=== PATIENT | male | born 1955 | race Caucasian/White ===

== ENCOUNTER 2023-08-24 18:41 | Emergency (ER) | payer OTHER, SELFPAY ==
--- NOTE | ~2023-08-24 | US_ITS ---
EXAMINATION: US SCROTUM CLINICAL INFORMATION: Bilateral pain and numbness. COMPARISON: None available. TECHNIQUE: A sonogram of the scrotum was performed assessing turner-scale appearance and color Doppler flow. Spectral Doppler analysis of the arterial and venous flow were performed in the testes bilaterally. FINDINGS: RIGHT: Right testicle measures 3.9 x 2.6 x 3.0 cm, volume 16 mL. No focal testicular parenchymal lesions are visualized. Spectral Doppler analysis of the arterial and venous flow is normal in the right testis. Right epididymal head is normal in size. There is a right sided hydrocele. No right varicocele. Right epididymal Doppler flow is normal. LEFT: Left testicle measures 3.8 x 2.7 x 2.3 cm, volume 12 mL. No focal testicular parenchymal lesions are visualized. Spectral Doppler analysis of the arterial and venous flow is normal in the left testis. Left epididymal head is normal in size. There is a small left hydrocele. No left varicocele. Left epididymal Doppler flow is normal. US/US scrotum doppler IMPRESSION: Both testicles and epididymal heads are normal in appearance. Spectral Doppler analysis of the arterial and venous flow is normal in both testicles and epididymal heads. There are small, right greater than left hydroceles. No varicocele.
--- NOTE | ~2023-08-24 | US_ITS ---
EXAMINATION: US SCROTUM CLINICAL INFORMATION: Bilateral pain and numbness. COMPARISON: None available. TECHNIQUE: A sonogram of the scrotum was performed assessing turner-scale appearance and color Doppler flow. Spectral Doppler analysis of the arterial and venous flow were performed in the testes bilaterally. FINDINGS: RIGHT: Right testicle measures 3.9 x 2.6 x 3.0 cm, volume 16 mL. No focal testicular parenchymal lesions are visualized. Spectral Doppler analysis of the arterial and venous flow is normal in the right testis. Right epididymal head is normal in size. There is a right sided hydrocele. No right varicocele. Right epididymal Doppler flow is normal. LEFT: Left testicle measures 3.8 x 2.7 x 2.3 cm, volume 12 mL. No focal testicular parenchymal lesions are visualized. Spectral Doppler analysis of the arterial and venous flow is normal in the left testis. Left epididymal head is normal in size. There is a small left hydrocele. No left varicocele. Left epididymal Doppler flow is normal. US/US scrotum IMPRESSION: Both testicles and epididymal heads are normal in appearance. Spectral Doppler analysis of the arterial and venous flow is normal in both testicles and epididymal heads. There are small, right greater than left hydroceles. No varicocele.
[2023-08-24 19:03] VITALS: BP 148/97; PULSE 58; RESP 18; TEMP 36.6; O2SAT 99; BMI 23.7
--- NOTE | 2023-08-24 19:05 | ED.GENADULT ---
HPI - General Adult General Chief complaint: Urogenital-Male Stated complaint: sent here by for ultrasound Time Seen by Provider: 08/24/23 20:02 Source: patient Mode of arrival: ambulatory Limitations: no limitations History of Present Illness HPI narrative: Patient is a 68 year old assigned male at with no reported medical history presenting to the emergency department today with bilateral testicular pain / numbness. Patient states that over the last 3-4 months he has noticed that when standing for long periods of time, he has had scrotal numbness and pain intermittently. Patient states that he feels it all the time but much worse with long periods of standing. Patient denies any dizziness, lightheadedness, abdominal pain, nausea, vomiting, fever, chills, blurry vision, double vision, loss of vision, chest pain, difficulty breathing, shortness of breath, back pain, night sweats, pain with urination, increased urinary frequency, increased urinary urgency, blood in his urine or stool, syncope or a near syncopal episode, recent trauma or falls, bowel incontinence, bladder incontinence, bowel retention, bladder retention, or any other complaints at this time. Onset (ago): month(s) (3-4) Severity: mild Relieving factors: none Exacerbating factors: other (long periods of standing) Associated symptoms: denies other symptoms Treatments prior to arrival: none Related Data Allergies Allergy/AdvReac Type Severity Reaction Status Date / Time No Known Allergies Allergy Verified 08/24/23 19:09 Review of Systems Constitutional: Constitutional: Reports no additional constitutional complaints, Denies chills, Denies fever(s) and Denies night sweats Eyes: Eyes: Reports no additional eye complaints, Denies blurry vision, Denies change in vision, Denies diplopia, Denies eye discharge, Denies loss of vision and Denies eye pain ENT: Denies dizziness Cardiovascular: Cardiovascular: Reports no additional cardiovascular complaints, Denies chest pain, Denies lightheadedness, Denies Loss of Consciousness and Denies dyspnea Respiratory: Respiratory: Reports no additional respiratory complaints and Denies dyspnea Gastrointestinal: Gastrointestinal: Reports no additional gastrointestinal complaints, Denies abdominal pain, Denies melena, Denies hematochezia, Denies change in bowel habits and Denies change in stool character Genitourinary: Genitourinary: Reports no additional male genitourinary complaints, Denies hematuria, Denies oliguria, Denies difficulty urinating, Denies dysuria, Denies urinary frequency, Denies urinary hesitancy, Denies urinary incontinence and Denies urinary urgency Comments: bilateral testicular numbness and pain - intermittent Musculoskeletal: Musculoskeletal: Reports no additional musculoskeletal complaints, Denies numbness and Denies tingling Neurologic: Denies dizziness, Denies loss of vision, Denies numbness and Denies tingling Psychiatric: Psychiatric: Reports no additional psychiatric complaints Endocrine: Endocrine: Reports no additional endocrine complaints Hematologic/Lymphatic: Hematologic/Lymphatic: Reports no additional hematologic/lymphatic complaints Allergic/Immunologic: Allergic/Immunologic: Reports no additional allergic/immunologic complaints PMFSH Past Medical History Attestation statement: The following information was validated with the patient. Source: old records reviewed and nursing notes reviewed Social History Social History Advance Directives: No Advance Directives Information Provided: No Do you have a plan to hurt others: No Plan Physical Exam ED Vital Signs: Vital Signs - 24 hr 08/24/23 19:03 08/24/23 19:26 Temperature 97.8 F 98.3 F Pulse Rate 58 70 Respiratory Rate 18 68 H Blood Pressure 148/97 H 137/83 Pulse Oximetry 99 97 Oxygen Delivery Method Room Air Room Air BMI result Body Mass Index 23.7 Const General: cooperative, no acute distress, alert and awake Nutritional Appearance: well nourished Orientation/consciousness: patient oriented x3 Limitations: no limitations HENMT Head: Yes normal to inspection and Yes atraumatic Ears: hearing grossly normal bilaterally and external ears normal General nose exam: Normal external nose present, no nasal discharge noted and no epistaxis Face and sinus: Yes normal facial exam, No abrasion and No laceration Mouth: Normal oral and palatal mucosa present, no drooling and no muffled voice Eyes General: appearance normal, both eyes and all related structures Periorbital: periorbital findings normal Eyelids: Yes eyelids normal Conjunctivae: conjunctivae normal Pupils: Equal, round and reactive pupils present EOM: EOMs intact bilaterally Neck Neck: Yes normal visual inspection, Yes full ROM and Yes no lymphadenopathy Chest Chest palpation & inspection: normal inspection of the chest Resp Effort & Inspection: normal respiratory effort and able to speak in complete sentences GI Inspection: Yes normal to inspection Male General Exam: Yes normal external exam (performed with ED Radiology Technologist Angle at bedside) Neuro General: patient oriented x3 and moves all extremities Cranial nerves: Yes Equal, round and reactive pupils present Cognition (Neuro): normal cognition Motor exam (neuro): 5/5 motor strength present throughout Sensory Exam: Normal double simultaneous stimulation for sensation Coordination: [id number] test normal Extrem General: Yes normal to inspection, Yes full ROM and Yes capillary refill normal Psych Appearance: grossly normal Mental Status: mental status grossly normal Affect: normal affect Attitude: cooperative Thought process: Normal thought process present Thought content: Normal thought content present Insight: Good insight present (Psych) Course Course Course Narrative: This is a rapid medical exam performed by Halina Torres NP: Additional HPI, ROS, PE not included below will be deferred to primary provider. Patient is a 68-year-old male with history of bipolar disorder presenting to the ED with complaint of bilateral testicular pain and numbness since this afternoon. States has had similar sxs for the past 3-4 months but never this severe. Denies any discoloration. Denies any difficulty urinating, hematuria. Went to urgent care but was referred to the ED. Has appointment with new PCP 09/30. Reports mild lower back tightness but states not pain, denies any falls or other trauma. Stands a lot for work, wears briefs. States he does shave his testicles but denies any knicks or other injuries. Unable to visualize in triage due to privacy concerns. Plan: UA, ultrasound, labs Medical Decision Making Medical Decision Making MDM Narrative: Patient is a 68 year old assigned male at with no reported medical history presenting to the emergency department today with intermittent bilateral scrotal pain and numbness. Patient's physical exam was unremarkable. Patient's blood work was unremarkable. Patient's urine showed no acute process. Patient's testicular US showed no acute process but did show bilateral hydroceles. I'm suspicious this is secondary to a process in the low back secondary to extended periods of standing however, given he has no back pain and is only having testicular pain, will have him start with PCP and urologist follow up. I explained my physical exam findings as well as all test results to the patient. I answered all questions asked by the patient. I stressed the importance of the patient taking his medication as prescribed. I stressed the importance of the patient following up with his primary care provider and a urologist. I stressed the importance of the patient returning to the emergency department immediately if his symptoms were to worsen or if he were to develop any dizziness, shortness of breath, difficulty breathing, chest pain, blurry vision, loss of vision, nausea, vomiting, abdominal pain, fever, chills, back pain, or any other complaints. Patient verbalized agreement and understanding with this treatment plan and discharge. Differential Diagnosis Differential Diagnoses: The differential diagnosis associated with the presentation includes Scrotal pain Scrotal numbness Admission/Observation Consideration of admission/observation: Escalation of care including admission/observation considered Patient would have been admitted to the hospital had his work up had any findings where hospital admission was appropriate and his clinical presentation warranted hospital admission. Lab Data MDM Lab Attestation statement: I reviewed the patient's lab results. My interpretation of these studies and their corresponding values is that they are grossly normal. 08/24/23 19:31 08/24/23 19:31 Labs: Lab Results 08/24/23 Range/Units 19:31 WBC 8.3 (4.8-10.8) X10*3/uL RBC 4.68 (4.60-5.80) X10*6/uL Hgb 14.7 (14.0-18.0) g/dl Hct 42.4 (42.0-52.0) % MCV 90.6 (80.0-98.0) fL MCH 31.4 (27.0-33.0) pg MCHC 34.7 (31.0-36.0) g/dl RDW 13.4 (11.0-16.0) % Plt Count 141 L (160-400) X10*3/uL MPV 9.9 (9.4-12.4) fL Immature Gran % (Auto) 0.1 (0.0-0.4) % Neut % (Auto) 36.1 L (45-73) % Lymph % (Auto) 56.1 H (20-40) % [place] % (Auto) 5.4 (2-11) % Eos % (Auto) 1.8 (0-4) % Baso % (Auto) 0.5 (0-2) % Lymph # (Auto) 4.7 (1.2-4.9) X10*3/uL [place] # (Auto) 0.5 (0.1-1.2) X10*3/uL Eos # (Auto) 0.2 (0.0-0.4) X10*3/uL Baso # (Auto) 0.0 (0.0-0.2) X10*3/uL Abs Immat Gran (auto) 0.01 (0.00-0.03) X10*3/uL Absolute Neuts (auto) 3.0 (2.0-8.3) x10*3/uL Absolute Nucleated RBC 0.000 (0.0-0.012) X10*3/uL Nucleated RBC % (auto) 0.0 (0.0-0.2) /100WBC Sodium 141 (135-145) mmol/L Potassium 3.9 (3.3-5.1) mmol/L Chloride 107 (96-108) mmol/L Carbon Dioxide 23 (22-29) mmol/L Anion Gap 15 (12-20) BUN 25 H (9-16) mg/dL Creatinine 1.17 (0.5-1.4) mg/dL Estim Creat Clear Calc 66.1 Estimated GFR > 60 Random Glucose 137 H (60-115) mg/dL Calcium 10.1 (8.4-10.2) mg/dL Total Bilirubin 0.6 (0.0-1.0) mg/dL AST 44 H (5-37) U/L ALT 53 H (0-40) U/L Alkaline Phosphatase 65 (39-117) U/L Total Protein 7.3 (6.5-8.0) g/dL Albumin 4.4 (3.5-5.0) g/dL Urine Color Yellow Urine Appearance Clear Urine pH 5.5 (5.0-9.0) Ur Specific [place] 1.025 (1.005-1.025) Urine Protein Negative (Neg-Trace) mg/dL Urine Glucose (UA) Negative (Negative) mg/dL Urine Ketones Trace (Negative) mg/dL Urine Blood Negative (Negative) Urine Nitrite Negative (Negative) Ur Leukocyte Esterase Negative (Negative) Independent Interpretation I performed an independent interpretation of an: Ultrasound Interpretation: My interpretation is in agreement with the radiologist's impression of this imaging study. EXAMINATION: US SCROTUM CLINICAL INFORMATION: Bilateral pain and numbness. COMPARISON: None available. TECHNIQUE: A sonogram of the scrotum was performed assessing turner-scale appearance and color Doppler flow. Spectral Doppler analysis of the arterial and venous flow were performed in the testes bilaterally. FINDINGS: RIGHT: Right testicle measures 3.9 x 2.6 x 3.0 cm, volume 16 mL. No focal testicular parenchymal lesions are visualized. Spectral Doppler analysis of the arterial and venous flow is normal in the right testis. Right epididymal head is normal in size. There is a right sided hydrocele. No right varicocele. Right epididymal Doppler flow is normal. LEFT: Left testicle measures 3.8 x 2.7 x 2.3 cm, volume 12 mL. No focal testicular parenchymal lesions are visualized. Spectral Doppler analysis of the arterial and venous flow is normal in the left testis. Left epididymal head is normal in size. There is a small left hydrocele. No left varicocele. Left epididymal Doppler flow is normal. US/US scrotum IMPRESSION: Both testicles and epididymal heads are normal in appearance. Spectral Doppler analysis of the arterial and venous flow is normal in both testicles and epididymal heads. There are small, right greater than left hydroceles. No varicocele. Dictated By: Devang Frank Jr, DO Signed By: Electronically signed by Devang Frank Jr, DO 08/24/232116 Radiology Impression Discussion of test interpretation with radiology: I have reviewed the radiologist's reading. Discharge Plan Discharge Clinical Impression: Hydrocele Patient Disposition: Home, Self-Care Instructions: Hydrocele (ED), Scrotal Pain (ED) Additional Instructions: Follow up with your primary care provider and a urologist. Your lab work and ultrasound were reassuring. Your ultrasound showed small hydroceles. Return to the emergency department immediately if your symptoms worsen or if you develop any dizziness, shortness of breath, difficulty breathing, chest pain, blurry vision, loss of vision, nausea, vomiting, abdominal pain, fever, chills, back pain, or any other complaints. Referrals: [facility] [place] [facility] [place] Group] (Call to establish and follow up with a primary care provider. If you already have a primary care provider, please follow up with them.) [facility] [place] Care[place]geniy [Provider Group] [facility] [place] [facility] [Provider Group] [facility] [place] [facility] [place] Group] (Call to establish and follow up with a urologist.) Stand Alone Forms: Work/School Release Print Language: Senegalese
[2023-08-24 19:26] VITALS: BP 137/83; PULSE 70; RESP 68; TEMP 36.8; O2SAT 97
[2023-08-24 19:35] LABS: MANUAL DIFF FLAG NO
[2023-08-24 19:38] LABS: Basophils Percent Auto 0.5 % (0-2); Eosinophils Absolute Auto 0.2 X10*3/uL (0.0-0.4); Eosinophils Percent Auto 1.8 % (0-4); Hematocrit 42.4 % (42.0-52.0); Hemoglobin 14.7 g/dl (14.0-18.0); Imm Gran Abs Auto 0.01 X10*3/uL (0.00-0.03); Imm Gran Pct Auto 0.1 % (0.0-0.4); Lymphocytes Absolute Auto 4.7 X10*3/uL (1.2-4.9); Lymphocytes Percent Auto 56.1 % (20-40); Mean Corpuscular HGB Conc 34.7 g/dl (31.0-36.0); Mean Corpuscular Hemoglobin 31.4 pg (27.0-33.0); Mean Corpuscular Volume 90.6 fL (80.0-98.0); Mean Platelet Volume 9.9 fL (9.4-12.4); Monocytes Absolute Auto 0.5 X10*3/uL (0.1-1.2); Monocytes Percent Auto 5.4 % (2-11); Neutrophils Percent Auto 36.1 % (45-73); Platelet Count 141 X10*3/uL (160-400); Red Blood Count 4.68 X10*6/uL (4.60-5.80); Red Cell Distribution Width 13.4 % (11.0-16.0); White Blood Count 8.3 X10*3/uL (4.8-10.8)
[2023-08-24 19:45] LABS: Appearance Urine Clear; Color Urine Yellow; Glucose Urine UA Negative (Negative); Leukocyte Esterase Urine Negative (Negative); Nitrite Urine Negative (Negative); PH 5.5 (5.0-9.0); Specific Gravity - Urine 1.025 (1.005-1.025); Urine Blood Negative (Negative); Urine Ketones Trace mg/dL (Negative); Urine Protein Negative (Neg-Trace)
[2023-08-24 19:51] LABS: Alanine Aminotransferase 53 U/L (0-40); Albumin Level 4.4 g/dL (3.5-5.0); Alkaline Phosphatase 65 U/L (39-117); Anion Gap 15 (12-20); Aspartate Amino Transferase 44 U/L (5-37); Bilirubin Total 0.6 mg/dL (0.0-1.0); Blood Urea Nitrogen 25 mg/dL (9-16); Calcium 10.1 mg/dL (8.4-10.2); Carbon Dioxide 23 mmol/L (22-29); Chloride 107 mmol/L (96-108); Creatinine Clr Calc Pharmacy 66.1; Estimated Glomerular Filt Rate > 60; Glucose Random 137 mg/dL (60-115); Potassium 3.9 mmol/L (3.3-5.1); Sodium 141 mmol/L (135-145); Total Protein 7.3 g/dL (6.5-8.0)
[2023-08-24 22:41] VITALS: BP 124/69; PULSE 61; RESP 16; TEMP 36.8; O2SAT 97
== END 2023-08-24 22:42 | disposition home or self-care (01) ==
PROVIDERS: Registered Nurse Emergency; Emergency Provider Emergency Medicine Emergency Medical Services
DX: N43.3 Hydrocele, unspecified (principal)
CPT/HCPCS: 36415; 76870; 80053; 81003; 85025; 93975; 99284

== ENCOUNTER 2023-10-01 10:25 | Outpatient (AMB) | payer OTHER, SELFPAY ==
--- NOTE | 2023-10-01 10:30 | MHC.PC.OV ---
Vital Signs 10/01/23 10:35 Height 5 ft 8.5 in Weight 173 lb 6 oz BMI 26.0 BP 113/75 Blood Pressure Location Rt brachial Position Sitting Respiration 14 Pulse 56 Pulse Source Pulse Oximeter Temp 96.8 F Temp Source Temporal Artery Scan Pulse Oximetry (%) 97 Oxygen Delivery Method Room Air Intake Visit Reasons: establish [facility] Intake Note: New patient visit Allergies No Known Allergies Allergy (Verified 10/01/23 10:32) Medication List - Last Reconciled 10/01/23 by Noemí Lee MD bupropion HCl XL 150 mg PO QAM divalproex ER 500 mg PO TID olanzapine 5 mg PO BEDTIME Tobacco use date assessed: 10/01/23 Fall risk assessment: No Falls in past year Last assessed Fall Risk: 10/01/23 Dental Screening Dental Screen Date: 10/01/23 Did you have a dental visit in the last 12 months?: Yes Did you have a dental problem in the last 6 months where you did not have access to dental care?: No Was dental information given to patient?: Patient has dentist HPI HPI Comments History of Present Illness Details Patient is a 68-year-old male with history of bipolar disorder, scrotal pain presenting to [facility] Was seen in the ER in August presenting to the ED with complaint of bilateral testicular pain and numbness since this afternoon. States has had similar sxs for the past 3-4 months but never this severe. Denies any discoloration. Denies any difficulty urinating, hematuria. Went to urgent care but was referred to the ED. ultrasound IMPRESSION:Both testicles and epididymal heads are normal in appearance. Spectral Doppler analysis of the arterial and venous flow is normal in both testicles and epididymal heads.There are small, right greater than left hydroceles. Labs with mild elevation in glucose, LFTs, lymphocytes. Patient has an upcoming appt with urology booked. Says pain is less frequent and severe in intensity. Does endorse worse after long periods of standing. Does have tight back muscles at times MSK: low back strain at times. deviation of 2nd and 3rd right toe on right, mild on left. Discomfort from toes, top of right foot into right obrien. Reports some post nasal drip, change in voice. intentional weight loss 20 pounds over the past year. Stopped lithium 1.5 years ago BH: History of bipolar. Sees psych provider out of [facility]. Was having significant bradycardia with lithium. ultimately this was switched and bradycardia resolved. on wellbutrin, zyprexa. PFSH Medical History (Updated 10/01/23 @ 12:28 by Noemí Lee MD) Hernia Bradycardia Social History (Updated 10/01/23 @ 10:52 by Sirisha Bradley CMA) Housing: Apartment Patient Tobacco Use Status: Former Tobacco user Tobacco use type: Cigar (Occasionally) Years Smoked: 20 e-Cigarette/Vaping Use: Never Used Second Hand Smoke Exposure: No service: No Current occupational status: unemployed and retired Cognitive needs: No Hearing needs: No Vision needs: No Questionnaire PHQ-9 Over the last 2 weeks, how often have you been bothered by any of the following problems? 1. Little interest or pleasure in doing things: several days 2. Feeling down, depressed, or hopeless: several days 3. Trouble falling or staying asleep, or sleeping too much: not at all 4. Feeling tired or having little energy: several days 5. Poor appetite or overeating: not at all 6. Feeling bad about yourself - or that you are a failure or have let yourself or your family down: several days 7. Trouble concentrating on things, such as reading the newspaper or watching television: not at all 8. Moving or speaking so slowly that other people could have noticed. Or the opposite - being so fidgety or restless that you have been moving around a lot more than usual: not at all 9. Thoughts that you would be better off or of hurting yourself in some way: not at all Total score: 4 Depression Screening Interpretation: Positive (already managed by ) Depression Screening Follow-up: Community Mental Health Worker F/U Depression Screening Done: Yes 80534 - PHQ-9 Billing: Yes Source: Developed by Drs. Jon Webb, Blanquita Davidson, Grayson Medina and colleagues, with an educational eligio from [employer]. Thrive Questionnaire Date Thrive assessed: 10/01/23 I am a: Patient What is your living situation today?: I have a steady place to live Within the past 12 months, did the food you bought not last and you didn't have the money to get more?: Never true Within the past 12 months, did you worry whether your food would run out before you got money to buy more?: Never true Do you have trouble paying for medicines?: No Do you have trouble getting transportation to medical appointments?: No Do you have trouble paying your heating and electricity bill?: No Do you have trouble taking care of your child, family member or friend?: No Do you have trouble with day-to-day activities such as bathing, preparing meals, shopping, managing finances, etc.?: No Are you currently unemployed and looking for a job?: No Are you interested in more education?: No Please select the resources that you would like help with: None Currently or been in a relationship where the following occur: no concerns reported THRIVE Score: 0 AUDIT C Alcohol Use Questionnaire (AUDIT-C) 1. How often do you have a drink containing alcohol?: 2-3 times a week 2. How many drinks containing alcohol do you have on a typical day when you are drinking?: 1 or 2 3. How often do you have six or more drinks on one occasion?: Never Total Score: 3 MIKY-7 AMB Questionnaire MIKY-7 Date MIKY - 7 assessed: 10/01/23 Feeling nervous, anxious, or on edge: 0 = Not at all Not being able to stop or control worryin = Not at all Worrying too much about different things: 0 = Not at all Trouble relaxin = Not at all Being so restless that it is hard to sit still: 0 = Not at all Becoming easily annoyed or irritable: 0 = Not at all Feeling afraid as if something awful might happen: 0 = Not at all Total MIKY-7 score (0-4 normal; 5-9 mild; 10-14 moderate; 15-21 severe): 0 Source: Developed by Drs. Jon Webb, Blanquita Davidson, Grayson Medina and colleagues, with an educational eligio from [employer]. MIKY-7 Assessment Billing MIKY-7 Assessment Tool: MIKY-7 Assessment 14821 Review of Systems Const Details: see HPI Physical exam (Primary Care) Vital Signs: Last Vital Signs Temp 96.8 F 10/01/23 10:35 Pulse 56 10/01/23 10:35 Resp 14 10/01/23 10:35 BP 113/75 10/01/23 10:35 Pulse Ox 97 10/01/23 10:35 Oxygen Delivery Method Room Air 10/01/23 10:35 PHYSICAL EXAM: GENERAL: Alert and oriented x 3. NAD EYES: EOMI. Anicteric. HENT: Moist mucous membranes. No scleral icterus. No cervical lymphadenopathy. LUNGS: Clear to auscultation bilaterally. CARDIOVASCULAR: Regular rate and rhythm. No murmur. No JVD. +DP pulses ABDOMEN: Soft, non-tender +bs EXTREMITIES: No edema. Non-tender. Triggering of right 2nd and 3rd toes SKIN: No rashes or lesions. Warm. NEUROLOGIC: No focal neurological deficits. CN II-XII grossly intact PSYCHIATRIC: Cooperative. Appropriate mood and affect BMI result Body Mass Index 26.0 Tobacco/Smoking Status: Tobacco use Status Tobacco use date assessed 10/01/23 10/01/23 10:38 Patient Tobacco Use Status Former Tobacco user 10/01/23 10:52 Tobacco use type Cigar (Occasionally) 10/01/23 10:52 e-Cigarette/Vaping Use Never Used 10/01/23 10:52 PHQ-9: PHQ-9 Score PHQ-9: Total score 4 10/01/23 10:54 Depression Screening Interpretation: Positive (already managed by ) Depression Screening Follow-up: Community Mental Health Worker F/U Thrive Assessment: Date of Thrive Assessment Date Thrive assessed 10/01/23 10/01/23 10:54 Currently or been in a relationship where the following occur: no concerns reported Assessment and Plan Assessment & Plan (1) Scrotal pain: Comment: follow up urology. check lumbar xray. given loss of height 3inches check DXA Code(s): N50.82 - Scrotal pain (2) Bilateral hydrocele: Code(s): N43.3 - Hydrocele, unspecified (3) Bipolar depression: Comment: stable on current medications. continue with Code(s): F31.9 - Bipolar disorder, unspecified (4) Establishing care with new doctor, encounter for: Code(s): Z76.89 - Persons encountering health services in other specified circumstances Plan: 68 year old to establish care. past medical, surgical, social and family history reviewed. chart updated. Orders: Orders Complete Blood Count Auto Diff Today R73.09 - Other abnormal glucose, R79.89 - Other specified abnormal findings of blood chemistry Pathologist Review - CBC Today R73.09 - Other abnormal glucose, R79.89 - Other specified abnormal findings of blood chemistry Hepatitis B Core Antibody Today R73.09 - Other abnormal glucose, R79.89 - Other specified abnormal findings of blood chemistry Prostate Specific Antigen Scr Today R73.09 - Other abnormal glucose, R79.89 - Other specified abnormal findings of blood chemistry Hemoglobin A1c Today R73.09 - Other abnormal glucose, R79.89 - Other specified abnormal findings of blood chemistry XR lumbar spine 2-3V Today M54.16 - Radiculopathy, lumbar region, N50.82 - Scrotal pain XR DEXA axial skeleton Today M54.50 - Low back pain, unspecified, R29.890 - Loss of height TSH reflex Free T4 Today N43.3 - Hydrocele, unspecified, N50.82 - Scrotal pain, R00.1 - Bradycardia, unspecified Referrals Podiatry Referral M79.671 - Pain in right foot, M79.672 - Pain in left foot Coding Level of Care Code Tele New Pt Level 4 (20469) Complex EM visit Add On G2211 Diagnoses Scrotal pain N50.82 Bilateral hydrocele N43.3 Bipolar depression F31.9 Establishing care with new doctor, encounter for Z76.89 Additional Codes MIKY-7 Assessment Billing - MIKY-7 Assessment Tool: MIKY-7 Assessment 75409 ([id number])
[2023-10-01 10:35] VITALS: BP 113/75; PULSE 56; RESP 14; TEMP 36; O2SAT 97; BMI 26.0
== END 2023-10-01 11:26 | disposition home or self-care (01) ==
PROVIDERS: PCP Internal Medicine; Visit Provider Internal Medicine
DX: N50.82 Scrotal pain (principal); N43.3 Hydrocele, unspecified; F31.9 Bipolar disorder, unspecified
CPT/HCPCS: 99204; G2211

== ENCOUNTER 2023-10-01 11:31 | Outpatient (REF) | payer OTHER, SELFPAY ==
[2023-10-01 14:29] LABS: MANUAL DIFF FLAG NO
[2023-10-01 14:34] LABS: Basophils Percent Auto 0.6 % (0-2); Eosinophils Absolute Auto 0.1 X10*3/uL (0.0-0.4); Eosinophils Percent Auto 1.7 % (0-4); Hematocrit 44.5 % (42.0-52.0); Hemoglobin 14.6 g/dl (14.0-18.0); Imm Gran Abs Auto 0.01 X10*3/uL (0.00-0.03); Imm Gran Pct Auto 0.1 % (0.0-0.4); Lymphocytes Absolute Auto 3.6 X10*3/uL (1.2-4.9); Lymphocytes Percent Auto 50.4 % (20-40); Mean Corpuscular HGB Conc 32.8 g/dl (31.0-36.0); Mean Corpuscular Hemoglobin 31.1 pg (27.0-33.0); Mean Corpuscular Volume 94.9 fL (80.0-98.0); Mean Platelet Volume 10.8 fL (9.4-12.4); Monocytes Absolute Auto 0.6 X10*3/uL (0.1-1.2); Monocytes Percent Auto 8.2 % (2-11); Neutrophils Absolute Auto 2.8 x10*3/uL (2.0-8.3); Platelet Count 127 X10*3/uL (160-400); Red Blood Count 4.69 X10*6/uL (4.60-5.80); White Blood Count 7.1 X10*3/uL (4.8-10.8)
[2023-10-01 15:12] LABS: Estimated Average Glucose 100 mg/dL; Hemoglobin A1c % 5.1 % (<6.0)
[2023-10-01 15:13] LABS: Prostate Specific Antigen Scr 0.93 ng/mL (<0.05-4.0)
[2023-10-01 15:16] LABS: TSH reflex Free T4 1.11 uIU/mL (0.32-4.0)
[2023-10-02 07:44] LABS: HBc Num1 0.08 S/CO (0.00-0.79); Hepatitis B Core Antibody Nonreactive (Nonreactive)
== END 2023-10-01 11:32 | disposition home or self-care (01) ==
LOC: HO.WFDLDS 11:31
PROVIDERS: Visit Provider Internal Medicine
DX: R73.09 Other abnormal glucose (principal); R79.89 Other specified abnormal findings of blood chemistry; R00.1 Bradycardia, unspecified; N43.3 Hydrocele, unspecified; N50.82 Scrotal pain; Z12.5 Encounter for screening for malignant neoplasm of prostate
CPT/HCPCS: 36415; 83036; 84153; 84443; 85025; 86704

== ENCOUNTER 2023-10-19 09:54 | Outpatient (AMB) | payer OTHER, SELFPAY ==
--- NOTE | 2023-10-19 10:10 | A.OFFVIS_ITS ---
Intake Visit Reasons: bilateral hydrocele Intake Note: Patient is present for bilateral hydrocele Urology Medication:none Antibiotic Allergy:none Blood Thinner:none Insurance Solicitor Required: No Allergies No Known Allergies Allergy (Verified 10/19/23 10:12) HPI Comments Details: Jon is a pleasant male. He has a patient of Dr. Diez, he has seen for the following urologic conditions - testicular orchalgia States had episode of testicular orchialgia number of months ago. Has been happening on and off. Ultrasound performed showing small bilateral hydroceles, testicles and epididymal head normal in appearance. On exam has minimal issues. Slight discomfort of epididymal tail Reassurance provided May use anti-inflammatory should this recur Did notice discomfort associated with standing on feet and may well have been secondary to lower lumbar or sacral pain P.r.n. follow-up [facility] Medical History (Updated 10/11/23 @ 09:36 by Noemí Lee MD) Hernia Bradycardia Social History (Updated 10/01/23 @ 10:52 by Sirisha Bradley CMA) Housing: Apartment Patient Tobacco Use Status: Former Tobacco user Tobacco use type: Cigar (Occasionally) Years Smoked: 20 e-Cigarette/Vaping Use: Never Used Second Hand Smoke Exposure: No service: No Current occupational status: unemployed and retired Cognitive needs: No Hearing needs: No Vision needs: No Review of Systems Const Denies chills and Denies fever(s) Card Reports no additional complaints and Denies syncope Resp Denies cough GI Denies abdominal pain and Denies heartburn Reports as per HPI and Denies change in libido Neuro Denies syncope Psych Denies change in libido Endo Denies change in libido Physical Exam Const General: cooperative, healthy appearing, comfortable and no acute distress Orientation/consciousness: patient oriented x3 HEENT Face and sinus: Yes normal facial exam Mouth: moist mucous membranes Neck Neck: Yes normal visual inspection, Yes full ROM and Yes trachea midline Chest Chest palpation & inspection: normal inspection of the chest Resp Effort & Inspection: normal respiratory effort, able to speak in complete sentences and no respiratory distress GI Inspection: Yes normal to inspection Back/Spine/Pelvis Cervical Spine: normal cervical lordosis Thoracic/Lumbar Spine: thoracic and lumbar spine normal to inspection Skin General skin exam: no rashes or lesions noted Neuro General: patient oriented x3, gait normal, tone normal and moves all extremities Extrem General: Yes normal to inspection and Yes capillary refill normal Assessment & Plan Assessment & Plan (1) Bilateral hydrocele: Code(s): N43.3 - Hydrocele, unspecified Category: Medical (2) Scrotal pain: Comment: follow up urology. check lumbar xray. given loss of height 3inches check DXA Code(s): N50.82 - Scrotal pain Category: Medical Plan P.r.n. follow-up Patient Instructions: Imaging studies, laboratory and physical exam results were discussed and reviewed in detail. No major barriers to patient understanding were identified. An opportunity to ask questions regarding the treatment plan was provided. All questions were answered. The patient expressed understanding and agreement with the above treatment plan. The patient is aware they should contact our office by phone for worsening of their current condition or the appearance of new urologic symptoms. Compliance is encouraged with any medications and followup testing that is ordered. It is a privilege to participate in the urologic care of your patient. If you have any questions or concerns regarding treatment for the above conditions, or other urologic issues, please do not hesitate to contact me. The office telephone contact is [phone]. This note is constructed using voice recognition software. While every effort has been made to ensure accuracy elementary school band director errors may have been included. Yours sincerely, Dr Jim Lucas MD, MIREYA [facility] - Urology Providers of Expert, Compassionate Care for the Genitourinary System Coding Level of Care Code New Pt Level 3 (33337) Diagnoses Bilateral hydrocele N43.3 Scrotal pain N50.82
== END 2023-10-19 10:41 | disposition home or self-care (01) ==
PROVIDERS: Visit Provider Urology
DX: N43.3 Hydrocele, unspecified (principal); N50.82 Scrotal pain
CPT/HCPCS: 99203

== ENCOUNTER → 2023-10-19 09:54 | Outpatient (BNVA) | payer OTHER, SELFPAY | PROVIDERS: Visit Provider Urology ==

== ENCOUNTER 2023-10-26 09:07 | Outpatient (AMB) | payer OTHER, SELFPAY ==
--- NOTE | 2023-10-26 09:28 | MHC.PC.OV ---
Vital Signs 10/26/23 09:31 Height 5 ft 10 in Weight 174 lb BMI 25.0 BP 100/60 Blood Pressure Location Lt brachial Position Sitting Respiration 12 Pulse 60 Pulse Source Pulse Oximeter Pulse Oximetry (%) 98 Oxygen Delivery Method Room Air Intake Visit Reasons: Lyme Disease/ [place] concerns Intake Note: Patient reports he has been sleeping more often than not, patient states he gets 10-11 hours of sleep and is concerned as this is not his normal. Patient reports feeling weaker than usual. Patient reports he feels dizzy at times and would also like to discuss his voice cracking after talking during the day. Patient is concerned for the lack of sensation in his lower legs and bilateral feet turning outward. Supervisor Final Required: No Accompanied by: Self / Same As Patient Allergies No Known Allergies Allergy (Verified 10/26/23 09:35) Tobacco use date assessed: 10/01/23 Dental Screening Dental Screen Date: 10/01/23 HPI HPI Comments History of Present Illness Details Patient is a 68-year-old male with history of bipolar disorder, scrotal pain presenting for follow up Recent labs with mild lymphocytosis, decreased platelets. Patient notes fatigue for the past 2 -3 months. Sleeping ok. Denies LN, night sweats. MSK: low back strain at times. deviation of 2nd and 3rd right toe on right, mild on left. Discomfort from toes, top of right foot into right obrien. Reports some post nasal drip, change in voice. Hoarseness, some globus sensation BH: History of bipolar. Sees psych provider out of [facility]. Was having significant bradycardia with lithium. ultimately this was switched and bradycardia resolved. on wellbutrin, zyprexa. ROS see HPI PHYSICAL EXAM: GENERAL: Alert and oriented x 3. NAD EYES: EOMI. Anicteric. HENT: Moist mucous membranes. No scleral icterus. No cervical lymphadenopathy. LUNGS: Clear to auscultation bilaterally. CARDIOVASCULAR: Regular rate and rhythm. ABDOMEN: Soft, non-tender +bs EXTREMITIES: No edema. Non-tender. SKIN: No rashes or lesions. Warm. NEUROLOGIC: No focal neurological deficits. CN II-XII grossly intact PSYCHIATRIC: Cooperative. Appropriate mood and affect PFSH Medical History Hernia Bradycardia Surgical History No pertinent past surgical history Social History (Updated 10/26/23 @ 12:31 by Sharon Asencio CMA) Household Members: None Housing: Apartment Alcohol intake: never Patient Tobacco Use Status: Former Tobacco user Tobacco use type: Cigar (Occasionally) Years Smoked: 20 e-Cigarette/Vaping Use: Never Used Second Hand Smoke Exposure: No Use of substances other than those prescribed or required for medical reasons: No Have you been hit, kicked, punched, or otherwise hurt by someone within the past year? If so, by whom?: No Do you feel safe in your current relationship?: No Current Relationship Is there a partner from a previous relationship who is making you feel unsafe now?: No Are you made to feel afraid or neglected: No service: No Current occupational status: retired Cognitive needs: No Hearing needs: No Vision needs: No Questionnaire Thrive Questionnaire Date Thrive assessed: 10/01/23 MIKY-7 AMB Questionnaire MIKY-7 Date MIKY - 7 assessed: 10/01/23 Source: Developed by Drs. Jon Webb, Blanquita Davidson, Grayson Medina and colleagues, with an educational eligio from [employer]. Physical exam (Primary Care) Vital Signs: Last Vital Signs Pulse 60 10/26/23 09:31 Resp 12 10/26/23 09:31 BP 100/60 10/26/23 09:31 Pulse Ox 98 10/26/23 09:31 Oxygen Delivery Method Room Air 10/26/23 09:31 BMI result Body Mass Index 25.0 Tobacco/Smoking Status: Tobacco use Status Tobacco use date assessed 10/01/23 10/26/23 09:29 Patient Tobacco Use Status Former Tobacco user 10/26/23 09:29 Tobacco use type Cigar (Occasionally) 10/26/23 09:29 e-Cigarette/Vaping Use Never Used 10/26/23 09:29 Thrive Assessment: Date of Thrive Assessment Date Thrive assessed 10/01/23 10/26/23 09:29 Assessment and Plan Assessment & Plan (1) Fatigue: Code(s): R53.83 - Other fatigue Qualifiers: Fatigue type: unspecified Qualified Code(s): R53.83 - Other fatigue Plan: Check labs. Referral to ENT re voice changes, globus etc (2) Abnormal CBC: Code(s): R79.89 - Other specified abnormal findings of blood chemistry (3) Change in voice: Code(s): R49.9 - Unspecified voice and resonance disorder Orders: Orders Tick-borne Disease Molecular 10/26/23 R53.83 - Other fatigue, R79.89 - Other specified abnormal findings of blood chemistry Monotest 10/26/23 R53.83 - Other fatigue, R79.89 - Other specified abnormal findings of blood chemistry Other Ref Test - Misc 10/26/23 F31.9 - Bipolar disorder, unspecified, R53.83 - Other fatigue, R79.89 - Other specified abnormal findings of blood chemistry Lyme IgG/IgM w/reflex to WB 10/26/23 R53.83 - Other fatigue, R79.89 - Other specified abnormal findings of blood chemistry Platelet Count (Citrate) 10/26/23 R53.83 - Other fatigue, R79.89 - Other specified abnormal findings of blood chemistry Hepatitis C Antibody 10/26/23 R53.83 - Other fatigue, R79.89 - Other specified abnormal findings of blood chemistry Vitamin B12 and Folate 10/26/23 R53.83 - Other fatigue Referrals Ear/Nose/Throat Referral R49.0 - Dysphonia, R49.9 - Unspecified voice and resonance disorder, R53.83 - Other fatigue, R79.89 - Other specified abnormal findings of blood chemistry Podiatry Referral M79.671 - Pain in right foot, M79.672 - Pain in left foot, R53.83 - Other fatigue Coding Level of Care Code Tele Est Pt Level 4 (93685) Diagnoses Fatigue, unspecified type R53.83 Fatigue type: unspecified Abnormal CBC R79.89 Change in voice R49.9
[2023-10-26 09:31] VITALS: BP 100/60; PULSE 60; RESP 12; O2SAT 98; BMI 25.0
== END 2023-10-26 10:12 | disposition home or self-care (01) ==
PROVIDERS: PCP Internal Medicine; Visit Provider Internal Medicine
DX: R53.83 Other fatigue (principal); R79.89 Other specified abnormal findings of blood chemistry; R49.9 Unspecified voice and resonance disorder
CPT/HCPCS: 99214

== ENCOUNTER 2023-10-26 10:34 | Outpatient (REF) | payer OTHER, SELFPAY ==
[2023-10-26 14:04] LABS: MANUAL DIFF FLAG NO
[2023-10-26 14:21] LABS: Basophils Percent Auto 0.7 % (0-2); Eosinophils Absolute Auto 0.2 X10*3/uL (0.0-0.4); Eosinophils Percent Auto 3.6 % (0-4); Hematocrit 43.7 % (42.0-52.0); Hemoglobin 14.3 g/dl (14.0-18.0); Imm Gran Abs Auto 0.01 X10*3/uL (0.00-0.03); Imm Gran Pct Auto 0.2 % (0.0-0.4); Lymphocytes Absolute Auto 2.6 X10*3/uL (1.2-4.9); Lymphocytes Percent Auto 46.5 % (20-40); Mean Corpuscular HGB Conc 32.7 g/dl (31.0-36.0); Mean Corpuscular Hemoglobin 30.8 pg (27.0-33.0); Mean Platelet Volume 10.8 fL (9.4-12.4); Monocytes Absolute Auto 0.5 X10*3/uL (0.1-1.2); Monocytes Percent Auto 9.3 % (2-11); Neutrophils Absolute Auto 2.2 x10*3/uL (2.0-8.3); Neutrophils Percent Auto 39.7 % (45-73); Platelet Count 126 X10*3/uL (160-400); Red Blood Count 4.65 X10*6/uL (4.60-5.80); Red Cell Distribution Width 13.5 % (11.0-16.0); White Blood Count 5.5 X10*3/uL (4.8-10.8)
[2023-10-26 14:35] LABS: Platelet Count (Citrate) 96 X10*3/uL (150-310)
[2023-10-26 14:36] LABS: Valproate 73.5 mcg/mL (50.0-100.0)
[2023-10-26 15:01] LABS: Folate 12.3 ng/mL (> or = 4.0); Vitamin B12 714 pg/mL (200-900)
[2023-10-26 16:00] LABS: Monotest Negative (Negative)
[2023-10-27 03:55] LABS: ~HepC Num1 0.08 S/CO (0.00-0.79); ~Hepatitis C Antibody Nonreactive (Nonreactive)
[2023-10-29 13:27] LABS: Lyme Abs Screen <0.90 index
[2023-10-30 01:03] LABS: A. Phagocytphilium DNA,RT-PCR NOT DETECTED (NOT DETECTED); Babesia Microti DNA, RT-PCR NOT DETECTED (NOT DETECTED); Borrelia Miyamotoi,DNA RT-PCR NOT DETECTED (NOT DETECTED); E.Chaffeensis DNA RT-PCR NOT DETECTED (NOT DETECTED); Lyme(Borrelia ssp)DNA RT-PCR NOT DETECTED (NOT DETECTED)
== END 2023-10-26 10:35 | disposition home or self-care (01) ==
LOC: HO.WFDLDS 10:34
PROVIDERS: Visit Provider Internal Medicine
DX: R53.83 Other fatigue (principal); R79.89 Other specified abnormal findings of blood chemistry
CPT/HCPCS: 36415; 80164; 82607; 82746; 85025; 86308; 86617; 86618; 86803; 87468; 87469; 87478; 87484; 87798

== ENCOUNTER 2023-10-31 11:56 | Outpatient (REF) | payer OTHER, SELFPAY ==
--- NOTE | ~2023-10-31 | MM_ITS ---
EXAMINATION: BONE DENSITOMETRY CLINICAL INDICATION: Disorder of bone. COMPARISON: This is the patient's baseline examination. TECHNIQUE: Using a [employer] DXA System (software version: 13.1) manufactured by [employer], dual-energy x-ray absorptiometry was performed of the lumbar spine and left hip. The images are of good technical quality. Summary results are attached. FINDINGS: LEFT FEMUR, NECK: BMD 0.922 g/cm2, Z-score 0.0, T-score -1.1, osteopenia. LEFT FEMUR, TOTAL: BMD 0.994 g/cm2, Z-score -0.1, T-score -0.7, normal. AP SPINE L1-L3 (excluding L4): The data of L1-L4 has been changed to exclude the L4 vertebral body, because degenerative sclerosis at this level may cause overestimation of lumbar spine density. BMD 1.645 g/cm2, Z-score 4.1, T-score 3.6, normal. IDENTIFIED RISK FACTORS: None listed. HISTORY OF FRACTURE: None listed. MEDICATIONS: Multivitamin. MM/XR DEXA axial skeleton IMPRESSION: 1. DIAGNOSIS: Osteopenia based on the lowest T-score value of -1.1 in the femoral neck applying World Health Organization criteria. 2. 10-YEAR FRACTURE RISK PREDICTION, FRAX: Major osteoporotic fracture (clinical spine, forearm, hip or shoulder) 5.7%. Hip fracture 0.8%. 3. Treatment Recommendations: NOF guidelines recommend consideration for treatment in postmenopausal women and men age 50 and older presenting with the following: -A hip or vertebral (clinical or morphometric) fracture. -T-score less than or equal to -2.5 at the femoral neck or spine after appropriate evaluation to exclude secondary causes. -Low bone mass at the hip or spine and a 10-year fracture probability by FRAX of greater than or equal to 3% for hip fracture or greater than or equal to 20% for major osteoporotic fracture based on the [place] adapted WHO algorithm. 4. Other Recommendations: All treatment decisions require clinical judgment and consideration of individual patient factors, including patient preferences, comorbidities, previous drug use, risk factors not captured in the FRAX model (e.g. frailty, falls, vitamin D deficiency, increased bone turnover, interval significant decline in bone density) and possible under or overestimation of fracture risk by FRAX. Additional medical evaluation for secondary cause of low bone mineral density may be appropriate. FUTURE SCAN RECOMMENDATION: People with diagnosed cases of osteoporosis or at high risk for fracture should have regular bone mineral density tests. For patients eligible for Medicare, routine testing is allowed once every 2 years. The testing frequency can be increased to one year for patients who have rapidly progressing disease, those who are receiving or discontinuing medical therapy to restore bone mass, or have additional risk factors.
--- NOTE | ~2023-10-31 | XR_ITS ---
EXAMINATION: XR LUMBOSACRAL SPINE CLINICAL INFORMATION: Reason for Exam M54.16 - Radiculopathy, lumbar region COMPARISON: None TECHNIQUE: 3 views of the lumbar spine FINDINGS: 5 nonrib-bearing lumbar-type vertebral bodies. Vertebral body heights are maintained. Grade 1 retrolisthesis of L1 on L2-L3 on L4. Levoconvex curvature of the lumbar spine. Advanced multilevel degenerative disc disease with loss of disc space height and advanced facet arthropathy. Paravertebral soft tissues are unremarkable. XR/XR lumbar spine 2-3V IMPRESSION: 1. Levoconvex curvature of the lumbar spine. Grade 1 retrolisthesis of L1 on L2-L3 on L4. 2. Advanced multilevel degenerative disc disease with loss of disc space height and advanced facet arthropathy.
== END 2023-10-31 11:57 | disposition home or self-care (01) ==
LOC: HO.MAMMO 11:56
PROVIDERS: PCP Internal Medicine; Visit Provider Internal Medicine
DX: Z13.820 Encounter for screening for osteoporosis (principal); R29.890 Loss of height; M89.9 Disorder of bone, unspecified; M54.16 Radiculopathy, lumbar region; N50.82 Scrotal pain
CPT/HCPCS: 72100; 77080

== ENCOUNTER 2023-11-23 16:01 | Outpatient (REF) | payer OTHER, SELFPAY ==
[2023-11-23 18:10] LABS: MANUAL DIFF FLAG NO
[2023-11-23 18:16] LABS: Basophils Percent Auto 0.5 % (0-2); Eosinophils Absolute Auto 0.1 X10*3/uL (0.0-0.4); Eosinophils Percent Auto 1.4 % (0-4); Hematocrit 41.1 % (42.0-52.0); Hemoglobin 13.8 g/dl (14.0-18.0); Imm Gran Abs Auto 0.01 X10*3/uL (0.00-0.03); Imm Gran Pct Auto 0.1 % (0.0-0.4); Lymphocytes Absolute Auto 3.6 X10*3/uL (1.2-4.9); Lymphocytes Percent Auto 48.7 % (20-40); Mean Corpuscular HGB Conc 33.6 g/dl (31.0-36.0); Mean Corpuscular Hemoglobin 30.7 pg (27.0-33.0); Mean Corpuscular Volume 91.5 fL (80.0-98.0); Mean Platelet Volume 10.5 fL (9.4-12.4); Monocytes Absolute Auto 0.6 X10*3/uL (0.1-1.2); Monocytes Percent Auto 8.4 % (2-11); Neutrophils Percent Auto 40.9 % (45-73); Platelet Count 129 X10*3/uL (160-400); Red Blood Count 4.49 X10*6/uL (4.60-5.80); Red Cell Distribution Width 13.3 % (11.0-16.0); White Blood Count 7.3 X10*3/uL (4.8-10.8)
== END 2023-11-23 16:02 | disposition home or self-care (01) ==
LOC: HO.WFDLDS 16:01
PROVIDERS: Visit Provider Internal Medicine
DX: R79.89 Other specified abnormal findings of blood chemistry (principal)
CPT/HCPCS: 85025

== ENCOUNTER 2023-12-03 11:28 | Outpatient (AMB) | payer OTHER, SELFPAY ==
[2023-12-03 11:30] VITALS: BP 120/72; PULSE 62; TEMP 36.6; O2SAT 98; BMI 24.7
--- NOTE | 2023-12-03 11:30 | MHC.PC.OV ---
Vital Signs 12/03/23 11:30 Height 5 ft 10 in Weight 172 lb 8 oz BMI 24.7 BP 120/72 Blood Pressure Location Rt brachial Position Sitting Pulse 62 Pulse Source Pulse Oximeter Temp 97.8 F Temp Source Oral Pulse Oximetry (%) 98 Oxygen Delivery Method Room Air Intake Visit Reasons: Bipolar Intake Note: Pt presents to the office today for Bipolar disorder. Pt states he has been feeling depressed lately. He started a new job at [employer] and feels like he is unable to remember things. He has been experiencing brain fog within the last 3-4 weeks. Pt states he was in contact with his brother who had covid 2 weeks ago. Allergies No Known Allergies Allergy (Verified 12/13/23 07:59) Tobacco use date assessed: 10/01/23 Fall risk assessment: No Falls in past year Last assessed Fall Risk: 12/03/23 Dental Screening Dental Screen Date: 10/01/23 Did you have a dental visit in the last 12 months?: Yes Did you have a dental problem in the last 6 months where you did not have access to dental care?: No Was dental information given to patient?: Patient has dentist HPI HPI Comments History of Present Illness Details Patient is a 68-year-old male with history of bipolar disorder, scrotal pain presenting for follow up Bipolar disorder. Pt states he has been feeling depressed lately. He started a new job at [employer] and feels like he is unable to remember things. He has been experiencing brain fog within the last 3-4 weeks. Pt states he was in contact with his brother who had covid 2 weeks ago. Recent labs with mild lymphocytosis, decreased platelets-repeat including citrate platelets still abnormal. Smear with decreased, large platelets otherwise reassuring. Patient notes fatigue for the past 2 -3 months. Sleeping ok. Denies LN, night sweats. Upcoming hematology consult Bone density reviewed-osteopenia MSK: low back strain at times. deviation of 2nd and 3rd right toe on right, mild on left. Discomfort from toes, top of right foot into right obrien. Referred to podiatry. Reports some post nasal drip, change in voice. Hoarseness, some globus sensation. Referral pending to ENT BH: History of bipolar. Has been following with psych provider out of [facility] but hard to contact/schedule.. Was having significant bradycardia with lithium. ultimately this was switched and bradycardia resolved. on wellbutrin, zyprexa. ROS see HPI PHYSICAL EXAM: GENERAL: Alert and oriented x 3. NAD EYES: EOMI. Anicteric. HENT: Moist mucous membranes. No scleral icterus. No cervical lymphadenopathy. LUNGS: Clear to auscultation bilaterally. CARDIOVASCULAR: Regular rate and rhythm. No murmur. No JVD. ABDOMEN: Soft, non-tender +bs EXTREMITIES: No edema. Non-tender. SKIN: No rashes or lesions. Warm. NEUROLOGIC: No focal neurological deficits. CN II-XII grossly intact PSYCHIATRIC: Cooperative. Appropriate mood and affect PFSH Medical History Hernia Bradycardia Surgical History No pertinent past surgical history Social History Household Members: None Housing: Apartment Alcohol intake: never Patient Tobacco Use Status: Former Tobacco user Tobacco use type: Cigar (Occasionally) Years Smoked: 20 e-Cigarette/Vaping Use: Never Used Second Hand Smoke Exposure: No Use of substances other than those prescribed or required for medical reasons: No Have you been hit, kicked, punched, or otherwise hurt by someone within the past year? If so, by whom?: No Do you feel safe in your current relationship?: Yes Do you have thoughts of harming others: None Do you have a plan to hurt others: No Plan service: No Current occupational status: retired Cognitive needs: No Hearing needs: No Vision needs: No Questionnaire PHQ-9 Over the last 2 weeks, how often have you been bothered by any of the following problems? 1. Little interest or pleasure in doing things: more than half the days 2. Feeling down, depressed, or hopeless: more than half the days 3. Trouble falling or staying asleep, or sleeping too much: nearly every day 4. Feeling tired or having little energy: nearly every day 5. Poor appetite or overeating: not at all 6. Feeling bad about yourself - or that you are a failure or have let yourself or your family down: more than half the days 7. Trouble concentrating on things, such as reading the newspaper or watching television: nearly every day 8. Moving or speaking so slowly that other people could have noticed. Or the opposite - being so fidgety or restless that you have been moving around a lot more than usual: more than half the days 9. Thoughts that you would be better off or of hurting yourself in some way: not at all Total score: 17 Depression Screening Interpretation: Positive Depression Screening Follow-up: Existing condition and Change in Medication Depression Screening Done: Yes 54330 - PHQ-9 Billing: Yes Source: Developed by Drs. Jon Webb, Blanquita Davidson, Grayson Medina and colleagues, with an educational eligio from [employer]. Thrive Questionnaire Date Thrive assessed: 10/01/23 I am a: Patient What is your living situation today?: I have a steady place to live Within the past 12 months, did the food you bought not last and you didn't have the money to get more?: Never true Within the past 12 months, did you worry whether your food would run out before you got money to buy more?: Never true Do you have trouble paying for medicines?: No Do you have trouble getting transportation to medical appointments?: No Do you have trouble paying your heating and electricity bill?: No Do you have trouble taking care of your child, family member or friend?: No Do you have trouble with day-to-day activities such as bathing, preparing meals, shopping, managing finances, etc.?: No Are you currently unemployed and looking for a job?: No Are you interested in more education?: No Please select the resources that you would like help with: None THRIVE Score: 0 AUDIT C Alcohol Use Questionnaire (AUDIT-C) 1. How often do you have a drink containing alcohol?: 2-3 times a week 2. How many drinks containing alcohol do you have on a typical day when you are drinking?: 1 or 2 3. How often do you have six or more drinks on one occasion?: Never Total Score: 3 MIKY-7 AMB Questionnaire MIKY-7 Date MIKY - 7 assessed: 12/03/23 Feeling nervous, anxious, or on edge: 2 = More than half the days Not being able to stop or control worryin = More than half the days Worrying too much about different things: 2 = More than half the days Trouble relaxin = Not at all Being so restless that it is hard to sit still: 0 = Not at all Becoming easily annoyed or irritable: 0 = Not at all Feeling afraid as if something awful might happen: 3 = Nearly every day Total MIKY-7 score (0-4 normal; 5-9 mild; 10-14 moderate; 15-21 severe): 9 Source: Developed by Drs. Jon Webb, Blanquita Davidson, Grayson Medina and colleagues, with an educational eligio from [employer]. MIKY-7 Assessment Billing MIKY-7 Assessment Tool: MIKY-7 Assessment 01514 Physical exam (Primary Care) Vital Signs: Last Vital Signs Temp 97.8 F 12/03/23 11:30 Pulse 62 12/03/23 11:30 BP 120/72 12/03/23 11:30 Pulse Ox 98 12/03/23 11:30 Oxygen Delivery Method Room Air 12/03/23 11:30 BMI result Body Mass Index 24.7 Tobacco/Smoking Status: Tobacco use Status Tobacco use date assessed 10/01/23 12/03/23 11:42 Patient Tobacco Use Status Former Tobacco user 12/03/23 11:42 Tobacco use type Cigar (Occasionally) 12/03/23 11:42 e-Cigarette/Vaping Use Never Used 12/03/23 11:42 PHQ-9: PHQ-9 Score PHQ-9: Total score 17 12/16/23 05:17 Depression Screening Interpretation: Positive Depression Screening Follow-up: Existing condition and Change in Medication Thrive Assessment: Date of Thrive Assessment Date Thrive assessed 10/01/23 12/03/23 11:42 Assessment and Plan Assessment & Plan (1) Exposure to COVID-19 virus: Code(s): Z20.822 - Contact with and (suspected) exposure to COVID-19 Plan: Swabbed today for testing (2) Bipolar depression: Code(s): F31.9 - Bipolar disorder, unspecified Plan: Local referrals placed Given fatigue. lack of concetration will increase buproprion to 300mg daily. Did discuss this could increase risk of gabriele. Patient will monitor symptoms Orders: Orders SARS-CoV2/FLU/RSV 12/03/23 R53.83 - Other fatigue, Z20.822 - Contact with and (suspected) exposure to COVID-19 Referrals Psychology Referral F31.9 - Bipolar disorder, unspecified Psychiatry Referral F31.9 - Bipolar disorder, unspecified Medications: New bupropion HCl XL (Wellbutrin XL) 300 mg PO QAM 90 tabs 3RF 90 days Coding Level of Care Code Est Pt Level 5 (39367) Diagnoses Exposure to COVID-19 virus Z20.822 Bipolar depression F31.9 Additional Codes MIKY-7 Assessment Billing - MIKY-7 Assessment Tool: MIKY-7 Assessment 80295 ([id number]) Time Spent (min) 42
== END 2023-12-03 13:44 | disposition home or self-care (01) ==
PROVIDERS: PCP Internal Medicine; Visit Provider Internal Medicine
DX: Z20.822 Contact with and (suspected) exposure to COVID-19 (principal); F31.9 Bipolar disorder, unspecified
CPT/HCPCS: 96127; 99215

== ENCOUNTER 2023-12-03 13:55 | Outpatient (REF) | payer OTHER, SELFPAY ==
[2023-12-03 14:37] LABS: Influenza A PCR NEGATIVE (Negative); Influenza B PCR NEGATIVE (Negative); Resp Syncy Virus RNA Qual PCR NEGATIVE (Negative); SARS COV2 PCR INHOUSE NEGATIVE (Negative)
== END 2023-12-03 13:56 | disposition home or self-care (01) ==
LOC: HO.LNP 13:55
PROVIDERS: Visit Provider Internal Medicine
DX: R53.83 Other fatigue (principal); Z20.822 Contact with and (suspected) exposure to COVID-19
CPT/HCPCS: 0241U

== ENCOUNTER → 2023-12-13 07:45 | Outpatient (BNV) | payer OTHER, SELFPAY | PROVIDERS: PCP Internal Medicine; Referring Provider Internal Medicine; Visit Provider Internal Medicine | DX: D69.6 Thrombocytopenia, unspecified (principal) | CPT/HCPCS: 99204; G2211 ==

== ENCOUNTER 2023-12-28 09:41 | Outpatient (AMB) | payer OTHER, SELFPAY ==
--- NOTE | 2023-12-28 09:36 | MHC.PC.OV ---
Intake Visit Reasons: telehealth speak of memory issues/ foggy mind Intake Note: Patient would like to discuss foggy memory. Patient has experienced a similar bout of brain fog 1.5 years ago. Patient reports having a panic attack because he could not remember something. Allergies No Known Allergies Allergy (Verified 12/13/23 07:59) Tobacco use date assessed: 10/01/23 Dental Screening Dental Screen Date: 10/01/23 HPI HPI Comments History of Present Illness Details Patient is a 68-year-old male with history of bipolar disorder, scrotal pain presenting for follow up Presenting for persistent memory issues, brain fog. He did not find increasing the wellbutrin from 150 to 300 daily helpful. He denies manic symptoms. 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 He is unable to stay on task. 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 Pt states he has been feeling depressed lately. He started a new job at [employer] and feels like he is unable to remember things. He has been experiencing brain fog within the last 3-4 weeks. Pt states he was in contact with his brother who had covid 2 weeks ago. Heme/Onc: Follows with [facility]. Recent labs with mild lymphocytosis, decreased platelets-repeat including citrate platelets still abnormal. Smear with decreased, large platelets otherwise reassuring. Patient notes fatigue for the past 2 -3 months. Sleeping ok. Denies LN, night sweats. Bone density reviewed-osteopenia MSK: low back strain at times. deviation of 2nd and 3rd right toe on right, mild on left. Discomfort from toes, top of right foot into right obrien. Referred to podiatry. Reports some post nasal drip, change in voice. Hoarseness, some globus sensation. Referral pending to ENT BH: History of bipolar. Has been following with psych provider out of [facility] but hard to contact/schedule.. Was having significant bradycardia with lithium. ultimately this was switched and bradycardia resolved. on wellbutrin, zyprexa. ROS see HPI PHYSICAL EXAM: telehealth [facility] Medical History Hernia Bradycardia Surgical History No pertinent past surgical history Social History Household Members: None Housing: Apartment Alcohol intake: never Patient Tobacco Use Status: Former Tobacco user Tobacco use type: Cigar (Occasionally) Years Smoked: 20 e-Cigarette/Vaping Use: Never Used Second Hand Smoke Exposure: No service: No Current occupational status: retired Cognitive needs: No Hearing needs: No Vision needs: No Questionnaire Thrive Questionnaire Date Thrive assessed: 10/01/23 MIKY-7 AMB Questionnaire MIKY-7 Date MIKY - 7 assessed: 12/03/23 Source: Developed by Drs. Jon Webb, Blanquita Davidson, Grayson Medina and colleagues, with an educational eligio from [employer]. Physical exam (Primary Care) Tobacco/Smoking Status: Tobacco use Status Tobacco use date assessed 10/01/23 12/28/23 09:39 Patient Tobacco Use Status Former Tobacco user 12/28/23 09:39 Tobacco use type Cigar (Occasionally) 12/28/23 09:39 e-Cigarette/Vaping Use Never Used 12/28/23 09:39 Thrive Assessment: Date of Thrive Assessment Date Thrive assessed 10/01/23 12/28/23 09:39 Telehealth Telehealth Telehealth Platform: Telephone Location of provider rendering services: practice address Location of patient: address on file Patient Identification confirmed using: Name, : Yes Telehealth method: voice only Patient verbally consented to treatment: Yes Patient verbally consented to billing insurance company: Yes Patient informed of any privacy concerns related to visit: Yes Minutes spent on Phone/Video with Pt.: 32 Assessment and Plan Assessment & Plan (1) Post-COVID chronic concentration deficit: Code(s): R41.840 - Attention and concentration deficit; U09.9 - Post COVID-19 condition, unspecified Plan: Long discussion with patient about causes of memory loss and attention deficit. His labs have been benign. I will order MRI brain to r/o TIAs. Trial adderall 10 bid. Discussed increased risk for gabriele. Upcoming appt with psychology. referred to memory clinic Orders: Orders MR head/brain wo con Today R41.3 - Other amnesia, R41.840 - Attention and concentration deficit, U09.9 - Post COVID-19 condition, unspecified Referrals Psychiatry Referral R41.3 - Other amnesia Medications: New dextroamphetamine-amphetamine 10 mg (Adderall) administer doses at least 4-6 hours apart; Partial Fill upon patient request. 10 mg PO BID 60 tabs 0RF Coding Level of Care Code Tele Est Pt Level 4 (95716) Diagnoses 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; U09.9
== END 2023-12-28 10:39 | disposition home or self-care (01) ==
LOC: HO.HMGFM 09:41
PROVIDERS: PCP Internal Medicine; Visit Provider Internal Medicine
DX: R41.840 Attention and concentration deficit (principal); U09.9 Post COVID-19 condition, unspecified
CPT/HCPCS: 99443

== ENCOUNTER → 2024-01-22 07:22 | Outpatient (BNV) | payer OTHER, SELFPAY | PROVIDERS: PCP Internal Medicine; Visit Provider Radiology Diagnostic Radiology | DX: R41.840 Attention and concentration deficit (principal) | CPT/HCPCS: 70551 ==

== ENCOUNTER 2024-01-22 07:23 | Outpatient (REF) | payer OTHER, SELFPAY ==
--- NOTE | ~2024-01-22 | MR_ITS ---
EXAMINATION: MR BRAIN WITHOUT CONTRAST CLINICAL INFORMATION: 68-year-old male, attention and concentration deficit. Started during COVID -19 approximately 2 months ago, brain fog continuing. COMPARISON: No prior imaging available. TECHNIQUE: MRI of the brain was obtained using routine sequences without contrast. Examination was performed on a 1.5 Aleja Siemens magnet using standard sequences. Impression FINDINGS: -There is no diffusion restriction. -There is no intracranial hemorrhage, acute infarction, mass effect, or edema. -Ventricles, sulci, and cisterns are mildly diffusely prominent, age-appropriate involutional change. No asymmetric pattern of atrophy. No shift of midline. Diffuse thinning of the corpus callosum is present, however. This is uncertain etiology or significance. -Basal cisterns are patent and normal in signal. -No abnormal hemosiderin deposition is identified. -There are a several scattered punctate and somewhat confluent foci of white matter T2 hyperintensity in the periventricular, subcortical, and hemispheric deep white matter, nonspecific. Small foci are also seen in the posteromedial cerebellar hemispheres abutting the posterior vermis (series 8, image 6). These foci are nonspecific and most likely represent sequela of small vessel ischemic change. -There are a few scattered tiny old lacunar type infarcts in the left anterior thalamus and bilateral anterior gangliocapsular regions. -Midline structures appear normally formed. -Normal pituitary gland with diaphragma sella incompetence. -Posterior fossa structures appear normal. Cerebellar tonsils are appropriately located. -Major flow voids are preserved within the skull base. -The globes and orbital contents demonstrate no abnormalities. -Paranasal sinuses demonstrate mild mucosal thickening throughout the ethmoid sinuses. Sinuses are otherwise clear bilaterally. -Nasal septum is essentially midline without spur. -Trace left mastoid tip effusion. The mastoids and tympanic cavities are otherwise normally aerated. Extra cranial soft tissues demonstrate a oval left superior neck lipoma abutting the sternocleidomastoid posterior margin, measuring 2.5 x 1.7 cm, only seen on the sagittal T1 sequence (series 5, image 8). This is benign. No suspicious bone marrow changes are evident. Atlantoaxial joint is normal. MR/MR head/brain wo con IMPRESSION: 1. No evidence of intracranial hemorrhage, acute infarction, mass effect, or edema. 2. Slcw-rr-tjvvihfh changes of small vessel ischemia as described above. No pattern or distribution specific for demyelination. 3. Age-related cerebral and cerebellar involutional changes, with more notable atrophy of the corpus callosum. This is uncertain in etiology or significance. 4. Ancillary findings as discussed in the body the report. Electronically signed by: Jez Barrientos MD 02/22/2024 11:06 AM EDT
== END 2024-01-22 07:24 | disposition home or self-care (01) ==
LOC: HO.MRI 07:23
PROVIDERS: PCP Internal Medicine; Visit Provider Internal Medicine
DX: R41.840 Attention and concentration deficit (principal); U09.9 Post COVID-19 condition, unspecified; R41.3 Other amnesia
CPT/HCPCS: 70551

== ENCOUNTER 2024-03-28 13:49 | Outpatient (AMB) | payer OTHER, SELFPAY ==
--- NOTE | 2024-03-28 13:50 | MHC.PC.OV ---
Vital Signs 03/28/24 14:03 Height 5 ft 10 in Weight 177 lb 6 oz BMI 25.4 BP 120/76 Blood Pressure Location Lt brachial Position Sitting Pulse 55 Pulse Source Pulse Oximeter Pulse Oximetry (%) 97 Oxygen Delivery Method Room Air Intake Visit Reasons: F/UP BRAIN FOG Intake Note: Follow up on brain fog Chute Loader Required: No Allergies No Known Allergies Allergy (Verified 03/28/24 13:50) Tobacco use date assessed: 10/01/23 Dental Screening Dental Screen Date: 10/01/23 HPI HPI Comments History of Present Illness Details Patient is a 69-year-old male with history of bipolar disorder, brain fog/attention deficit, presenting for follow up Patient has ongoing difficulties at work. Difficulty executing the sequence at work. There has been some interval improvement with adderall. 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 Referred to memory clinic in Dec. Waiting for outreach. Follows with psych on [facility]. Pt states he has been feeling depressed lately. He started a new job at [employer] and feels like he is unable to remember things. He has been experiencing brain fog within the last 3-4 weeks. Pt states he was in contact with his brother who had covid 2 weeks ago. MSK: low back strain at times. deviation of 2nd and 3rd right toe on right, mild on left. Discomfort from toes, top of right foot into right obrien. -Saw podiatry got inserts which is helping Heme/Onc: Follows with [facility] [place]. Recent labs with mild lymphocytosis, decreased platelets-repeat including citrate platelets still abnormal. Smear with decreased, large platelets otherwise reassuring. Patient notes fatigue for the past 2 -3 months. Sleeping ok. Denies LN, night sweats. Bone density reviewed-osteopenia MSK: low back strain at times. deviation of 2nd and 3rd right toe on right, mild on left. Discomfort from toes, top of right foot into right obiren. Referred to podiatry. Reports some post nasal drip, change in voice. Hoarseness, some globus sensation. Referral pending to ENT BH: History of bipolar. Has been following with psych provider out of [facility] but hard to contact/schedule.. Was having significant bradycardia with lithium. ultimately this was switched and bradycardia resolved. on wellbutrin, zyprexa. ROS see HPI PHYSICAL EXAM: GENERAL: Alert and oriented x 3. NAD EYES: EOMI. Anicteric. HENT: Moist mucous membranes. No scleral icterus. No cervical lymphadenopathy. LUNGS: Clear to auscultation bilaterally. CARDIOVASCULAR: Regular rate and rhythm. No murmur. No JVD. ABDOMEN: Soft, non-tender +bs EXTREMITIES: No edema. Non-tender. SKIN: No rashes or lesions. Warm. NEUROLOGIC: No focal neurological deficits. CN II-XII grossly intact PSYCHIATRIC: Cooperative. Appropriate mood and affect PFSH Medical History Hernia Bradycardia Surgical History H/O endoscopy No pertinent past surgical history Social History Household Members: None Housing: Apartment Alcohol intake: current Patient Tobacco Use Status: Former Tobacco user Tobacco use type: Cigar (Occasionally) Years Smoked: 20 e-Cigarette/Vaping Use: Never Used Second Hand Smoke Exposure: No service: No Current occupational status: retired Cognitive needs: No Hearing needs: No Vision needs: No Questionnaire PHQ-9 Over the last 2 weeks, how often have you been bothered by any of the following problems? 1. Little interest or pleasure in doing things: not at all 2. Feeling down, depressed, or hopeless: not at all 3. Trouble falling or staying asleep, or sleeping too much: not at all 4. Feeling tired or having little energy: not at all 5. Poor appetite or overeating: not at all 6. Feeling bad about yourself - or that you are a failure or have let yourself or your family down: not at all 7. Trouble concentrating on things, such as reading the newspaper or watching television: not at all 8. Moving or speaking so slowly that other people could have noticed. Or the opposite - being so fidgety or restless that you have been moving around a lot more than usual: not at all 9. Thoughts that you would be better off or of hurting yourself in some way: not at all Total score: 0 Depression Screening Interpretation: Negative Depression Screening Done: Yes 93745 - PHQ-9 Billing: Yes Source: Developed by Drs. Jon Webb, Grayson Meehan and colleagues, with an educational eligio from [employer]. Thrive Questionnaire Date Thrive assessed: 03/28/24 I am a: Patient What is your living situation today?: I have a steady place to live Within the past 12 months, did the food you bought not last and you didn't have the money to get more?: Never true Within the past 12 months, did you worry whether your food would run out before you got money to buy more?: Never true Do you have trouble paying for medicines?: No Do you have trouble getting transportation to medical appointments?: No Do you have trouble paying your heating and electricity bill?: No Do you have trouble taking care of your child, family member or friend?: No Do you have trouble with day-to-day activities such as bathing, preparing meals, shopping, managing finances, etc.?: No Are you currently unemployed and looking for a job?: No Are you interested in more education?: No Please select the resources that you would like help with: None Currently or been in a relationship where the following occur: No concerns reported THRIVE Score: 0 MIKY-7 AMB Questionnaire MIKY-7 Date MIKY - 7 assessed: 03/28/24 Feeling nervous, anxious, or on edge: 0 = Not at all Not being able to stop or control worryin = Not at all Worrying too much about different things: 0 = Not at all Trouble relaxin = Not at all Being so restless that it is hard to sit still: 0 = Not at all Becoming easily annoyed or irritable: 0 = Not at all Feeling afraid as if something awful might happen: 0 = Not at all Total MIKY-7 score (0-4 normal; 5-9 mild; 10-14 moderate; 15-21 severe): 0 Source: Developed by Drs. Jon Webb, Grayson Meehan and colleagues, with an educational eligio from [employer] [facility]. MIKY-7 Assessment Billing MIKY-7 Assessment Tool: MIKY-7 Assessment 62729 Physical exam (Primary Care) Vital Signs: Last Vital Signs Pulse 55 03/28/24 14:03 BP 120/76 03/28/24 14:03 Pulse Ox 97 03/28/24 14:03 Oxygen Delivery Method Room Air 03/28/24 14:03 BMI result Body Mass Index 25.4 Tobacco/Smoking Status: Tobacco use Status Tobacco use date assessed 10/01/23 03/28/24 13:56 Patient Tobacco Use Status Former Tobacco user 03/28/24 14:01 Tobacco use type Cigar (Occasionally) 03/28/24 14:01 e-Cigarette/Vaping Use Never Used 03/28/24 14:01 PHQ-9: PHQ-9 Score PHQ-9: Total score 0 03/29/24 08:45 Depression Screening Interpretation: Negative Thrive Assessment: Date of Thrive Assessment Date Thrive assessed 03/28/24 03/28/24 14:05 Currently or been in a relationship where the following occur: No concerns reported Coding Level of Care Code Est Pt Level 4 (93715) Diagnoses 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; U09.9 Memory loss R41.3 Bipolar depression F31.9 Thrombocytopenia D69.6 Additional Codes MIKY-7 Assessment Billing - MIKY-7 Assessment Tool: MIKY-7 Assessment 78898 ([id number]) PHQ-9 - 08227 - PHQ-9 Billing: Yes ([id number]) Assessment & Plan Assessment & Plan (1) Post-COVID chronic concentration deficit: Code(s): R41.840 - Attention and concentration deficit; U09.9 - Post COVID-19 condition, unspecified Category: Medical Plan: Will trial increased dose of adderall Continue psych follow up He will reach out to memory clinic regarding scheduling (2) Memory loss: Code(s): R41.3 - Other amnesia Category: Medical Plan: see above (3) Bipolar depression: Code(s): F31.9 - Bipolar disorder, unspecified Category: Medical Plan: see above (4) Thrombocytopenia: Code(s): D69.6 - Thrombocytopenia, unspecified Category: Medical Plan: Heme/Onc consult pending Medications: New dextroamphetamine-amphetamine 20 mg (Adderall) administer doses at least 4-6 hours apart; Partial Fill upon patient request. 20 mg PO BID 60 tabs 0RF Discontinued dextroamphetamine-amphetamine 10 mg (Adderall) administer doses at least 4-6 hours apart; Partial Fill upon patient request. Discontinued Reason: Doctor's Order 10 mg PO BID 60 tabs 0RF
[2024-03-28 14:03] VITALS: BP 120/76; PULSE 55; O2SAT 97; BMI 25.4
--- OUTSIDE RECORDS SUMMARY | 2024-04-02 10:14 | XMS_ITS ---
Author Organization [facility] Address [address] [address] Care Team Providers Care Workers Compensation Coordinator Name Role Phone Noemí Lee Primary Care Provider MIRELA Dotson Unavailable [phone] ALLERGIES No Known Allergies REASON FOR VISIT orthotics MEDICATIONS Medication SIG (Take, Route, Fr equency, Duration) Notes Start Date End Date Status ZyPREXA Active Wellbutrin Active Adderall 10 MG 1 tablet Orally Twice a day 024 Active OLANZapine 10 MG 1 tablet Orally Once a day 2023 Active Depakote 125 MG 1 tablet Orally Twice a day Active PROBLEMS Problem Type ICD Code Onset Dates Problem Status W/U Status Risk SNOMED Code Notes Problem Hammer toe of right foot (M20.41) Active confirmed 995550918 Encounters Encounter Location Date Provider Diagnosis [facility] [address] [address] 12/31/2023 MIRELA DUMONT PTTD (posterior tibial tendon dysfunction) M76.829 ; Hammer toe of right foot M20.41 ; Metatarsalgia, right foot M77.41 ; Metatarsalgia, left foot M77.42 ; Pain in left toe(s) M79.675 and Pain in right toe(s) M79.674 ASSESSMENTS Encounter Date Diagnosis Assessment Notes Treatment Notes Treatment Clinical Notes Section Notes 12/31/2023 PTTD (posterior tibial tendon dysfunction) (ICD-10 - M76.829) 12/31/2023 Hammer toe of right foot (ICD-10 - M20.41) This is an outpatient visit for evaluation and management of a new patient, which required appropriate review of pertinent medical history, review of any previous imaging, review of all previous records, and examination and decision-making. Time was 45 minutes spent in review of all these facets including face to face discussion with the patient regarding my findings and in discussion of a current and future treatment plan. I discussed with the patient his current symptoms. We discussed that he has hallux limitus which is a restriction of the big toe joint and his propulsion point. I explained this transfers his forefoot pressure to the 2nd and 3rd metatarsophalangeal joints. He also has narrowing between the 2nd and 3rd metatarsals on x-ray. This is creating increased stiffness and elevation of the 2nd and 3rd toes, especially on the right foot. I reviewed the x-rays with the patient. We discussed that he has arthritis of the metatarsophalangeal joints. He also has talar head uncovering, left worse than right. We discussed that he does have a flexible pes planus deformity. He would benefit from full length orthotics that also compensate for the forefoot deformities. RX written for the orthotics with list of DME suppliers and orthotic break in recommendations. We discussed the nail thickening and I gave recommendations for vitamins. We also discussed wound healing in the legs and how that changes with age. I recommended the patient calls once he receives the orthotics, and we will schedule him a follow-up 4 weeks later. He is in agreement with this plan. 12/31/2023 Metatarsalgia , right foot (ICD-10 - M77.41) 12/31/2023 Metatarsalgia , left foot (ICD-10 - M77.42) 12/31/2023 Pain in left toe(s) (ICD-10 - M79.675) 12/31/2023 Pain in right toe(s) (ICD-10 - M79.674) PLAN OF TREATMENT Treatment Notes Assessment Notes Hammer toe of right foot This is an outpatient visit for evaluation and management of a new patient, which required appropriate review of pertinent medical history, review of any previous imaging, review of all previous records, and examination and decision-making. Time was 45 minutes spent in review of all these facets including face to face discussion with the patient regarding my findings and in discussion of a current and future treatment plan. I discussed with the patient his current symptoms. We discussed that he has hallux limitus which is a restriction of the big toe joint and his propulsion point. I explained this transfers his forefoot pressure to the 2nd and 3rd metatarsophalangeal joints. He also has narrowing between the 2nd and 3rd metatarsals on x-ray. This is creating increased stiffness and elevation of the 2nd and 3rd toes, especially on the right foot. I reviewed the x-rays with the patient. We discussed that he has arthritis of the metatarsophalangeal joints. He also has talar head uncovering, left worse than right. We discussed that he does have a flexible pes planus deformity. He would benefit from full length orthotics that also compensate for the forefoot deformities. RX written for the orthotics with list of DME suppliers and orthotic break in recommendations. We discussed the nail thickening and I gave recommendations for vitamins. We also discussed wound healing in the legs and how that changes with age. I recommended the patient calls once he receives the orthotics, and we will schedule him a follow-up 4 weeks later. He is in agreement with this plan. Pending Test Test Name Order Date X ray : Foot, left 3v 12/31/2023 X ray : Foot, right 3v 12/31/2023 Next Appt Details Follow Up: 4 weeks after rec eiving orthotis, Reason: Provider Name:MIRELA DUMONT, 02/25/2025 08:00:00 AM, [address] [address], [place], [address], Progress Notes * Jon STEPHENSDOB:1954 (68 yo M)Acc No.[id number]:12/31/2023 Consult note Patient:??Jon STEPHENS Provider:??Mirela Dumont DPM :1955?Age:68 Y?Sex:Viridiana cannon Date:12/31/2023 Phone: Address:[address] [place] [address] [address], [phone] Pcp:Noemí Lee Subjective: * Chief Complaints: * ?Orthotics * HPI: ?Constitutional:? This 68 y/o male presents to my office with a complaint of toe curling and stiffness, right worse than left. He states he used to be a runner in school and would pronate. He was given arch support orthotics about 40 years ago. He has consistently worn them since. He states that he has noticed over the last 2-3 years his 2nd and 3rd toes have become stiffer, have changed in position, and there is some numbness to the toes on both sides. He denies any injury or trauma to the feet. He also notes his toenails have become thicker more recently. He denies any new pain in his feet. He is currently a walker and will walk around [facility] 3-5 miles a day for exercise. He has no other foot complaints this visit. Allergies and medical history reviewed. * ROS:?GENERAL: Pt denies nausea, fever, vomiting, chills, or shortness of breath. Pt in NAD. ALLERGY: patient denies any new allergy HEME/ONC: patient denies any bleeding or clotting disorders CARDIOLOGY: pt denies chest pain, palpitations LUNGS: pt denies shortness of breath ABDOMEN: patient denies any bloating, abdominal pain, or swelling MUSCULOSKELETAL: See HPI, otherwise no joint pain or swelling, back pain, or muscle pain. SKIN: see HPI, otherwise no lesions, rash or itching NEURO: No persistent headache, weakness or numbness PSYCH: patient denies any current anxiety or depression The remainder of the review of systems is noncontributory. * Medical History:?? * Surgical History:??Denies Pa st Surgical History * Hospitalization/Major Diagno stic Procedure:??Denies Past Hospitalization * Social History:?former smoker. * Medications:??TakingAdderall 10 MG Tablet 1 tablet Orally Twice a day OLANZapine 10 MG Tablet 1 tablet Orally Once a day Depakote 125 MG Tablet Delayed Release 1 tablet Orally Twice a day ZyPREXA Wellbutrin Taking Adderall 10 MG Tablet 1 tablet Orally Twice a day Taking OLANZapine 10 MG Tablet 1 tablet Orally Once a day Taking Depakote 125 MG Tablet Delayed Release 1 tablet Orally Twice a day Taking ZyPREXA Taking Wellbutrin * Allergies:??N.K.D.A.no[Aller gies Verified] Objective: * Examination: ?General Examination: ?GENERAL: Patient appears well nourished, with NAD. ?VASCULAR: Dorsalis pedis pulses are 2/4 bilaterally and Posterior tibial pulses are 2/4 bilaterally. Capillary filling time within normal limits the digits. No pallor on elevation or rubor on dependency. Positive hair growth. Each foot temperature is within normal limits. ?NEUROLOGICAL: Sharp/dull sensation intact bilaterally, position sense intact bilaterally to the tibial tuberosity. Diminished position sense toes 2,3 bilaterally. ?ORTHOPEDIC: Good muscle strength 4+/5 of all flexors and extensors. Dorsi flexion of ankle ,0 degrees, plantar flexion WNL. No muscle atrophy. Flexible pes planus bilaterally. Hallux limitus bilaterally with 10-15 degrees of dorsiflexion. Hammering of toes 2,3 right foot. Adductovarus rotation of toes 3,4,5 bilaterally. ?DERMATOLOGICAL: No masses, openings, or skin lesions noted. Normal skin temperature, normal skin turgor. Slight thickening of toenails bilaterally. ?BIOMECHANICS: STJ ROM WNL, MTJ ROM WNL, 1st MPJ ROM limited bilaterally. On weight-bearing, flexible pes planus with 3-4 degrees of calcaneal eversion, hammering of toes 2,3 right. ?SHOES: sneakers with custom orthotics. Therapeutic Interventions: Assessment: * Assessment: 1.??Hammer toe of right foot - M20.41 (Primary)??2.??PTTD (posterior tibial tendon dysfunction) - M76.829??3.??Metatarsalgia, right foot - M77.41??4.??Metatarsalgia, left foot - M77.42??5.??Pain in left toe(s) - M79.675??6.??Pain in right toe(s) - M79.674?? Plan: * Treatment: Notes: This is an outpatient visit for evaluation and management of a new patient, which required appropriate review of pertinent medical history, review of any previous imaging, review of all previous records, and examination and decision-making. Time was 45 minutes spent in review of all these facets including face to face discussion with the patient regarding my findings and in discussion of acurrent and future treatment plan. I discussed with the patient his current symptoms. We discussed that he has hallux limitus which jayjay restriction of the big toe joint and his propulsion point. I explained this transfers his forefoot pressure to the 2nd and 3rd metatarsophalangeal joints. He also has narrowing between the 2nd and 3rd metatarsals on x-ray. This is creating increased stiffness and elevation of the 2nd and 3rd toes, especially on the right foot. I reviewed the x-rays with the patient. We discussed that he has arthritis of the metatarsophalangeal joints. He also has talar head uncovering, left worse than right. We discussed that he does have a flexible pes planus deformity. He would benefit from full length ort hotics that also compensate for the forefoot deformities. RX written for the orthotics with list ofDME suppliers and orthotic break in recommendations. We discussed the nail thickening and I gave recommendations for vitamins. We also discussed wound healing in the legs and how that changes with age. I recommended the patient calls once he receives the orthotics, and we will schedule him a follow-up 4 weeks later. He is in agreement with this plan.?2.??PTTD (posterior tibial tendon dysfunction)?Imaging: X ray : Foot, left 3v* LEFT FOOT WEIGHT BEARING X-R AYS 3 VIEWS obtained during today's visit. On the AP view there is joint space narrowing, flattening of the 1st metatarsal head, and lateral spurring of the 1st metatarsophalangeal joint, indicating arthritis. There is joint space narrowing between the 2nd and 3rd metatarsophalangeal joints. Subchondral cysts noted in all the metatarsal heads. Talar head uncovering on the AP view of approximately 40%, indicating a pes planus deformity. On the lateral view a plantar calcaneal bone spur noted. There is a slight midtarsal collapse with dorsal spurring. Elevation of the 1st ray on the lateral view. No fracture noted. ?Imaging: X ray : Foot, right 3v* RIGHT FOOT WEIGHT BEARING X- RAYS 3 VIEWS obtained during today's visit. On the AP view there is joint space narrowing, flattening of the 1st metatarsal head, and lateral spurring of the 1st metatarsophalangeal joint, indicating arthritis. A bipartite tibial sesamoid is seen on the AP view. There is joint space narrowing between the 2nd and 3rd metatarsophalangeal joints. Subchondral cysts noted in all the metatarsal heads. Talar head uncovering on the AP view of approximately 25%, indicating a pes planus deformity. On the lateral view a plantar calcaneal bone spur noted. There is a slight midtarsal collapse with dorsal spurring. Hammering of the 2nd and 3rd toes on the lateral view. Elevation of the 1st ray on the lateral view. No fracture noted. 3.??Metatarsalgia, right foot?Imaging: X ray : Foot, right 3v* RIGHT FOOT WEIGHT BEARING X- RAYS 3 VIEWS obtained during today's visit. On the AP view there is joint space narrowing, flattening of the 1st metatarsal head, and lateral spurring of the 1st metatarsophalangeal joint, indicating arthritis. A bipartite tibial sesamoid is seen on the AP view. There is joint space narrowing between the 2nd and 3rd metatarsophalangeal joints. Subchondral cysts noted in all the metatarsal heads. Talar head uncovering on the AP view of approximately 25%, indicating a pes planus deformity. On the lateral view a plantar calcaneal bone spur noted. There is a slight midtarsal collapse with dorsal spurring. Hammering of the 2nd and 3rd toes on the lateral view. Elevation of the 1st ray on the lateral view. No fracture noted. 4.??Metatarsalgia, left foot?Imaging: X ray : Foot, left 3v* LEFT FOOT WEIGHT BEARING X-R AYS 3 VIEWS obtained during today's visit. On the AP view there is joint space narrowing, flattening of the 1st metatarsal head, and lateral spurring of the 1st metatarsophalangeal joint, indicating arthritis. There is joint space narrowing between the 2nd and 3rd metatarsophalangeal joints. Subchondral cysts noted in all the metatarsal heads. Talar head uncovering on the AP view of approximately 40%, indicating a pes planus deformity. On the lateral view a plantar calcaneal bone spur noted. There is a slight midtarsal collapse with dorsal spurring. Elevation of the 1st ray on the lateral view. No fracture noted. 5.??Pain in left toe(s)?Imaging: X ray : Foot, left 3v* LEFT FOOT WEIGHT BEARING X-R AYS 3 VIEWS obtained during today's visit. On the AP view there is joint space narrowing, flattening of the 1st metatarsal head, and lateral spurring of the 1st metatarsophalangeal joint, indicating arthritis. There is joint space narrowing between the 2nd and 3rd metatarsophalangeal joints. Subchondral cysts noted in all the metatarsal heads. Talar head uncovering on the AP view of approximately 40%, indicating a pes planus deformity. On the lateral view a plantar calcaneal bone spur noted. There is a slight midtarsal collapse with dorsal spurring. Elevation of the 1st ray on the lateral view. No fracture noted. 6.??Pain in right toe(s)?Imaging: X ray : Foot, right 3v* RIGHT FOOT WEIGHT BEARING X- RAYS 3 VIEWS obtained during today's visit. On the AP view there is joint space narrowing, flattening of the 1st metatarsal head, and lateral spurring of the 1st metatarsophalangeal joint, indicating arthritis. A bipartite tibial sesamoid is seen on the AP view. There is joint space narrowing between the 2nd and 3rd metatarsophalangeal joints. Subchondral cysts noted in all the metatarsal heads. Talar head uncovering on the AP view of approximately 25%, indicating a pes planus deformity. On the lateral view a plantar calcaneal bone spur noted. There is a slight midtarsal collapse with dorsal spurring. Hammering of the 2nd and 3rd toes on the lateral view. Elevation of the 1st ray on the lateral view. No fracture noted. * Procedure Codes:??29700 X-RA Y EXAM OF FOOT 3 Views, Units: 2.00 * Follow Up:??4 weeks after re ceiving orthotis * Billing Information: * Visit Code:?? 08020 Office Visit, New Pt., Level 3. * Procedure Codes:?? 90840 X-RAY EXAM OF FOOT 3 Views. Units: 2.00. * Sign off status: Completed true * Provider:??Mirela Dumont DPM Date: ??12/31/2023 History and Physical Notes * HPI (History of Present Illness) Category Sub-Category Detail Notes Category Not es Constitutional This 68 y/o m christy presents to my office with a complaint of toe curling and stiffness, right worse than left. He states he used to be a runner in school and would pronate. He was given arch support orthotics about 40 years ago. He has consistently worn them since. He states that he has noticed over the last 2-3 years his 2nd and 3rd toes have become stiffer, have changed in position, and there is some numbness to the toes on both sides. He denies any injury or trauma to the feet. He also notes his toenails have become thicker more recently. He denies any new pain in his feet. He is currently a walker and will walk around [facility] 3-5 miles a day for exercise. He has no other foot complaints this visit. Allergies and medical history reviewed. Examination Category Sub-Category Detail Notes Category Not es General Examination GENERAL: Patient appears well nourished, with NAD. VASCULAR: Dorsalis pedis pulses are 2/4 bilaterally and Posterior tibial pulses are 2/4 bilaterally. Capillary filling time within normal limits the digits. No pallor on elevation or rubor on dependency. Positive hair growth. Each foot temperature is within normal limits. NEUROLOGICAL: Sharp/dull sensation intact bilaterally, position sense intact bilaterally to the tibial tuberosity. Diminished position sense toes 2,3 bilaterally. ORTHOPEDIC: Good muscle strength 4+/5 of all flexors and extensors. Dorsi flexion of ankle ,0 degrees, plantar flexion WNL. No muscle atrophy. Flexible pes planus bilaterally. Hallux limitus bilaterally with 10-15 degrees of dorsiflexion. Hammering of toes 2,3 right foot. Adductovarus rotation of toes 3,4,5 bilaterally. DERMATOLOGICAL: No masses, openings, or skin lesions noted. Normal skin temperature, normal skin turgor. Slight thickening of toenails bilaterally. BIOMECHANICS: STJ ROM WNL, MTJ ROM WNL, 1st MPJ ROM limited bilaterally. On weight-bearing, flexible pes planus with 3-4 degrees of calcaneal eversion, hammering of toes 2,3 right. SHOES: sneakers with custom orthotics
--- OUTSIDE RECORDS SUMMARY | 2024-04-02 10:14 | XMS_ITS | Patient Health Record ---
Author Organization [facility] Address [address] [address] Care Team Providers Care Locum Tenens Psychiatrist Name Role Phone Noemí Lee Primary Care Provider UnavailBERNICE Greenwood Unavailable [phone] ALLERGIES No Known Allergies REASON FOR REFERRAL No Information MEDICATIONS Medication SIG (Take, Route, Fr equency, Duration) Notes Start Date End Date Status Adderall 10 MG 1 tablet Orally Twice a day 024 Active OLANZapine 10 MG 1 tablet Orally Once a day 2023 Active Depakote 125 MG 1 tablet Orally Twice a day Active ZyPREXA Active Wellbutrin Active PROBLEMS Problem Type ICD Code Onset Dates Problem Status W/U Status Risk SNOMED Code Notes Problem Hammer toe of right foot (M20.41) Active confirmed [id number] VITAL SIGNS Heart Rate 62 /min 02/25/2024 Temperature 96.2 degrees Fahrenheit 02/25/2024 Respiratory Rate 16 /min 02/25/2024 Height 5ft 10in in 02/25/2024 Weight 180.8 lbs 02/25/2024 BMI 25.94 kg/m2 02/25/2024 Encounters Encounter Location Date Provider Diagnosis [facility] [address] 11/28/2023 BERNICE MACARIO [facility] [address] 12/31/2023 BERNICE MACARIO PTTD (posterior tibial tendon dysfunction) M76.829 ; Hammer toe of right foot M20.41 ; Metatarsalgia, right foot M77.41 ; Metatarsalgia, left foot M77.42 ; Pain in left toe(s) M79.675 and Pain in right toe(s) M79.674 [facility] [address] [facility] [address] [place] [address] 02/25/2024 BERNICE RENALDO PTTD (posterior tibial tendon dysfunction) M76.829 ; Hammer toe of right foot M20.41 ; Metatarsalgia, right foot M77.41 ; Metatarsalgia, left foot M77.42 ; Subungual hematoma of toenail of left foot, sequela S90.222S ; Pain in left toe(s) M79.675 and Pain in right toe(s) M79.674 [facility] [address] [facility] [address] [place], [place] 11/05/2023 BERNICE MACARIO ASSESSMENTS Encounter Date Diagnosis Assessment Notes Treatment Notes Treatment Clinical Notes Section Notes 12/31/2023 Hammer toe of right foot (ICD-10 [...] is in agreement with this plan. 12/31/2023 PTTD (posterior tibial tendon dysfunction) (ICD-10 - M76.829) 02/25/2024 PTTD (posterior tibial tendon dysfunction) (ICD-10 - M76.829) 02/25/2024 Hammer toe of right foot (ICD-10 - M20.41) I discussed with the patient his current [...] does have a flexible pes planus deformity. I examined the orthotics with his feet in a non weight-bearing and weight-bearing environment. The current orthotics are appropriate. We discussed most custom orthotics needs adjustments every 2-5 years. I would like to see him back on a yearly basis to make sure the current orthotics are still appropriate. He is in agreement with this plan. 02/25/2024 Metatarsalgia , right foot (ICD-10 - M77.41) 12/31/2023 Metatarsalgia , right foot (ICD-10 - M77.41) 12/31/2023 Metatarsalgia , left foot (ICD-10 - M77.42) 02/25/2024 Metatarsalgia , left foot (ICD-10 - M77.42) 12/31/2023 Pain in left toe(s) (ICD-10 - M79.675) 02/25/2024 Subungual hematoma of toenail of left foot, sequela (ICD-10 - S90.222S) We discussed the bruising under the nail beds. I explained that the nails would likely fall off when the new nails start to grow out. We discussed a normal nail typically takes 9-12 months to grow out completely. 02/25/2024 Pain in left toe(s) (ICD-10 - M79.675) 12/31/2023 Pain in right toe(s) (ICD-10 - M79.674) 02/25/2024 Pain in right toe(s) (ICD-10 - M79.674) PLAN OF TREATMENT Pending Test Test Name Order Date X ray : Foot, left 3v 12/31/2023 X ray : Foot, right 3v 12/31/2023 Next Appt Details Provider Name:BERNICE AKILAH MACARIO, 02/25/2025 08:00:00 AM, [address] [facility] [address], [place], [address], Insurance Providers Payer Name Payer Address Payer Phone Subscriber Number Group Number Insured Name Patient Relationship to Insured Coverage Start Date Coverage End Date [employer] [address] [place] [address] [id number] Jon Mcleod Self - patient is the insured MEDICAL (GENERAL) HISTORY Medical History History ICD Code mild lymphocytosis fatigue low back strain bipolar disorder scrotal pain hernia bradycardia osteopenia thrombocytopenia + COVID 12/2023 COVID vaccinated X 3 (Pfizer)
--- OUTSIDE RECORDS SUMMARY | 2024-04-02 10:14 | XMS_ITS ---
Author Organization [facility] Address [address] [address] Care Team Providers Care Body Shop Technician Name Role Phone Noemí Lee Primary Care Provider MIRELA Dotson [phone] ALLERGIES No Known Allergies REASON FOR VISIT orthotics MEDICATIONS Medication SIG (Take, Route, Frequency, Duration) Notes Start Date End Date Status ZyPREXA Active Wellbutrin Active Encounters Encounter Location Date Provider Diagnosis [facility] [address] [address] 11/28/2023 MIRELA DUMONT PLAN OF TREATMENT Next Appt Details Provider Name:MIRELA DUMONT, 02/25/2025 08:00:00 AM, [address] [address], [place], [address], Progress Notes * Jon STEPHENSDOB:1954 (69 yo M)Acc No.[id number]:11/28/2023 Consult note Patient:??Jon STEPHENS Provider:??Mirela Dumont DPM :1955?Age:68 Y?Sex:Viridiana le Date:11/28/2023 Phone: Address:[address], [phone] Pcp:Noemí Lee Subjective: * Chief Complaints: * ?1. Orthotics. * Medical History:??Mild lymph ocytosis, Fatigue, Low back strain, Bipolar disorder, Scrotal pain, Hernia, Bradycardia, Osteopenia, Thrombocytopenia. * Social History:?Tobacco: former smoker Alcohol: never. * Medications:??Taking ZyPREXA , Taking Wellbutrin * Allergies:??N.K.D.A. Objective: Therapeutic Interventions: Assessment: Plan: * Treatment: * Billing Information: * Visit Code:?? * Procedure Codes:?? * Sign off status: Pending * Provider:??Mirela Dumont DPM Date: ??11/28/2023
--- OUTSIDE RECORDS SUMMARY | 2024-04-02 10:14 | XMS_ITS ---
Author Organization [facility] Address [address] [place] [id number] Care Team Providers Care Breaker Oiler Name Role Phone DavidGilda Neomí Primary Care Provider MIRELA Dotson [phone] ALLERGIES No Known Allergies REASON FOR VISIT f/u with orthotics MEDICATIONS Medication SIG (Take, Route, Fr equency, Duration) Notes Start Date End Date Status Adderall 10 MG 1 tablet Orally Twice a day 024 Active OLANZapine 10 MG 1 tablet Orally Once a day 2023 Active Depakote 125 MG 1 tablet Orally Twice a day Active ZyPREXA Active Wellbutrin Active VITAL SIGNS Weight 180.8 lbs 02/25/2024 Height 5ft 10in in 02/25/2024 BMI 25.94 kg/m2 02/25/2024 Heart Rate 62 /min 02/25/2024 Temperature 96.2 degrees Fahrenheit 02/25/20 24 Respiratory Rate 16 /min 02/25/2024 Encounters Encounter Location Date Provider Diagnosis [facility] [address] [id number] 02/25/2024 MIRELA DUMONT PTTD (posterior tibial tendon dysfunction) M76.829 ; Hammer toe of right foot M20.41 ; Metatarsalgia, right foot M77.41 ; Metatarsalgia, left foot M77.42 ; Subungual hematoma of toenail of left foot, sequela S90.222S ; Pain in left toe(s) M79.675 and Pain in right toe(s) M79.674 ASSESSMENTS Encounter Date Diagnosis Assessment Notes Treatment Notes Treatment Clinical Notes Section Notes 02/25/2024 PTTD (posterior tibial tendon dysfunction) (ICD-10 [...] Metatarsalgia , right foot (ICD-10 - M77.41) 02/25/2024 Metatarsalgia , left foot (ICD-10 - M77.42) 02/25/2024 Subungual hematoma of toenail of left foot, sequela (ICD-10 - S90.222S) We discussed the bruising under the nail beds. I explained that the nails would likely fall off when the new nails start to grow out. We discussed a normal nail typically takes 9-12 months to grow out completely. 02/25/2024 Pain in left toe(s) (ICD-10 - M79.675) 02/25/2024 Pain in right toe(s) (ICD-10 - M79.674) PLAN OF TREATMENT Treatment Notes Assessment Notes Hammer toe of right foot I discussed with the patient his current [...] He is in agreement with this plan. Subungual hematoma of toenai l of left foot, sequela We discussed the bruising under the nail beds. I explained that the nails would likely fall off when the new nails start to grow out. We discussed a normal nail typically takes 9-12 months to grow out completely. Next Appt Details Follow Up: 1 Year, Reason: Provider Name:MIRELA DUMONT, 02/25/2025 08:00:00 AM, [address] [address], [place], [id number], Progress Notes * Jon STEPHENSDOB:1954 (69 yo M)Acc No.[id number]:02/25/2024 Progress Note Patient:??Jon STEPHENS Provider:??Mirela Dumont DPM :1955?Age:69 Y?Sex:Viridiana cannon Date:02/25/2024 Phone: Address:[address] [place] [address] [address], [phone] Pcp:Noemí Lee Subjective: * Chief Complaints: * ?F/u with orthotics * HPI: ?Constitutional:? This 69 y/o male returns to my office asa follow up to orthotics. He received the orthotics and wears them every day. He states they are comfortable and do fit in most of his shoes. There are a couple of slide on shoes where the orthotics do not fit, and he uses an over the counter insert. Overall he states the feet are feeling better and the numbness of the toes has been improving. He does have bruising under the nails of the 2nd and 3rd toes from a hike. He states they are not painful. He has no other foot complaints this visit. * ROS:?GENERAL: Pt denies nausea, fever, vomiting, [...] Hospitalization/Major Diagno stic Procedure:??Denies Past Hospitalization * Family History:??No Family H istory documented..?? * Social History:?former smoker. * Medications:??TakingAdderall 10 MG Tablet 1 tablet Orally Twice a day OLANZapine 10 MG Tablet 1 tablet Orally Once a day Depakote 125 MG Tablet Delayed Release 1 tablet Orally Twice a day ZyPREXA Wellbutrin Medication List reviewed and reconciled with the patientTaking Adderall 10 MG Tablet 1 tablet Orally Twice a day Taking OLANZapine 10 MG Tablet 1 tablet Orally Once a day Taking Depakote 125 MG Tablet Delayed Release 1 tablet Orally Twice a day Taking ZyPREXA Taking Wellbutrin Medication List reviewed and reconciled with the patient * Allergies:??N.K.D.A.no[Aller gies Verified] Objective: * Vitals:??Wt:180.8lbs, Ht: 5f t 10in, BMI:25.94Index, HR:62/min, Temp:96.2F, RR:16/min, Ht-cm: 177.8, Wt-k.01 kg. * Examination: ?General Examination: ?GENERAL: Patient appears [...] Adductovarus rotation of toes 3,4,5 bilaterally. ?DERMATOLOGICAL: subungual hematoma of the left 2nd and 3rd toes, no pain on palpation, 100% of the nails. No masses, openings, or skin lesions noted. Normal skin temperature, normal skin turgor. Slight thickening of toenails bilaterally. ?BIOMECHANICS: STJ ROM WNL, MTJ ROM WNL, 1st MPJ ROM limited bilaterally. On weight-bearing, flexible pes planus with 3-4 degrees of calcaneal eversion, hammering of toes 2,3 right. ?SHOES: sneakers with custom orthotics. Assessment: * Assessment: 1.??Hammer toe of right foot - M20.41 (Primary)??2.??PTTD (posterior tibial tendon dysfunction) - M76.829??3.??Metatarsalgia, right foot - M77.41??4.??Metatarsalgia, left foot - M77.42??5.??Subungual hematoma of toenail of left foot, sequela - S90.222S??6.??Pain in left toe(s) - M79.675??7.??Pain in right toe(s) - M79.674?? Plan: * Treatment: 2.??Subungual hematoma of to enail of left foot, sequela?? Notes: We discussed the bruising under the nail beds. I explained that the nails would likely fall off when the new nails start to grow out. We discussed a normal nail typically takes 9-12 months to grow out completely.? * Procedure Codes:?? * Follow Up:??1 Year * Billing Information: * Visit Code:?? 63875 Office Visit, Est Pt., Level 3. * Procedure Codes:?? * Sign off status: Completed true * Provider:??Mirela Dumont DPM Date: ??02/25/2024 History and Physical Notes * HPI (History of Present Illness) Category Sub-Category Detail Notes Category Not es Constitutional This 69 y/o m christy returns to my office asa follow up to orthotics. He received the orthotics and wears them every day. He states they are comfortable and do fit in most of his shoes. There are a couple of slide on shoes where the orthotics do not fit, and he uses an over the counter insert. Overall he states the feet are feeling better and the numbness of the toes has been improving. He does have bruising under the nails of the 2nd and 3rd toes from a hike. He states they are not painful. He has no other foot complaints this visit. Examination Category Sub-Category Detail Notes Category Not [...] Adductovarus rotation of toes 3,4,5 bilaterally. DERMATOLOGICAL: subungual hematoma of the left 2nd and 3rd toes, no pain on palpation, 100% of the nails. No masses, openings, or skin lesions noted. Normal skin temperature, normal skin turgor. Slight thickening of toenails bilaterally. BIOMECHANICS: STJ ROM WNL, MTJ ROM WNL, 1st MPJ ROM limited bilaterally. On weight-bearing, flexible pes planus with 3-4 degrees of calcaneal eversion, hammering of toes 2,3 right. SHOES: sneakers with custom orthotics
== END 2024-03-28 14:25 | disposition home or self-care (01) ==
PROVIDERS: PCP Internal Medicine; Visit Provider Internal Medicine
DX: R41.840 Attention and concentration deficit (principal); U09.9 Post COVID-19 condition, unspecified; F31.9 Bipolar disorder, unspecified; D69.6 Thrombocytopenia, unspecified; R41.3 Other amnesia

== ENCOUNTER → 2024-03-28 13:49 | Outpatient (BNVA) | payer OTHER, SELFPAY | PROVIDERS: PCP Internal Medicine; Visit Provider Internal Medicine | DX: U09.9 Post COVID-19 condition, unspecified (principal); R41.840 Attention and concentration deficit; R41.3 Other amnesia; F31.9 Bipolar disorder, unspecified; D69.6 Thrombocytopenia, unspecified | CPT/HCPCS: 96127 ==

== ENCOUNTER 2024-05-13 09:01 | Outpatient (AMB) | payer OTHER, SELFPAY ==
--- NOTE | 2024-05-13 09:04 | A.OFFPC_ITS ---
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 Is finding his new job less stressful. He was previously having difficulty executing the sequence at work. There was been some improvement with adderall-he is wondering if he can consider tapering the medication. He was having difficulty with short and supervisor intermediates memory, brain fog. The latter he says has been lifting. 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 Referred to memory clinic in Dec. Waiting for outreach. He was following with psych on [facility]. Pt states he has been feeling depressed lately. He started a new job at [employer] and feels like he is unable to remember things. He has been experiencing brain fog within the last 3-4 weeks. Pt states he was in contact with his brother who had covid 2 weeks ago. MSK: low back strain at times. deviation of 2nd and 3rd right toe on right, mild on left. Discomfort from toes, top of right foot into right obrien. -Saw podiatry got inserts which is helping Heme/Onc: Follows with [facility]. Recent labs with mild lymphocytosis, decreased platelets-repeat including citrate platelets still abnormal. Smear with decreased, large platelets otherwise reassuring. Patient notes fatigue for the past 2 -3 months. Sleeping ok. Denies LN, night sweats. Bone density reviewed-osteopenia MSK: low back strain at times. deviation of 2nd and 3rd right toe on right, mild on left. Discomfort from toes, top of right foot into right obrien. Referred to podiatry. Reports some post nasal drip, change in voice. Hoarseness, some globus sensation. Referral pending to ENT BH: History of bipolar. Has been following with psych provider out of [facility] but hard to contact/schedule.. Was having significant bradycardia with lithium. ultimately this was switched and bradycardia resolved. on wellbutrin, zyprexa. ROS see HPI PHYSICAL EXAM: GENERAL: Alert and oriented x 3. NAD EYES: EOMI. Anicteric. HENT: Moist mucous membranes. No scleral icterus. No cervical lymphadenopathy. LUNGS: Clear to auscultation bilaterally. CARDIOVASCULAR: Regular rate and rhythm. No murmur. No JVD. ABDOMEN: Soft, non-tender +bs EXTREMITIES: No edema. Non-tender. SKIN: No rashes or lesions. Warm. NEUROLOGIC: No focal neurological deficits. CN II-XII grossly intact PSYCHIATRIC: Cooperative. Appropriate mood and affect [facility] Medical History Hernia Bradycardia Surgical History H/O endoscopy No pertinent past surgical history Social History Household Members: None Housing: Apartment Alcohol intake: current Patient Tobacco Use Status: Former Tobacco user Tobacco use type: Cigar (Occasionally) Years Smoked: 20 e-Cigarette/Vaping Use: Never Used Second Hand Smoke Exposure: No service: No Current occupational status: retired Cognitive needs: No Hearing needs: No Vision needs: No Questionnaire PHQ-9 Over the last 2 weeks, how often have you been bothered by any of the following problems? 1. Little interest or pleasure in doing things: not at all 2. Feeling down, depressed, or hopeless: not at all 3. Trouble falling or staying asleep, or sleeping too much: not at all 4. Feeling tired or having little energy: not at all 5. Poor appetite or overeating: not at all 6. Feeling bad about yourself - or that you are a failure or have let yourself or your family down: not at all 7. Trouble concentrating on things, such as reading the newspaper or watching television: not at all 8. Moving or speaking so slowly that other people could have noticed. Or the opposite - being so fidgety or restless that you have been moving around a lot more than usual: not at all 9. Thoughts that you would be better off or of hurting yourself in some way: not at all Total score: 0 Source: Developed by Drs. Jon Webb, Blanquita Davidson, Grayson Medina and colleagues, with an educational eligio from [employer]. Thrive Questionnaire Date Thrive assessed: 05/06/24 I am a: Patient What is your living situation today?: I have a steady place to live Within the past 12 months, did the food you bought not last and you didn't have the money to get more?: Never true Within the past 12 months, did you worry whether your food would run out before you got money to buy more?: Never true Do you have trouble paying for medicines?: No Do you have trouble getting transportation to medical appointments?: No Do you have trouble paying your heating and electricity bill?: No Do you have trouble taking care of your child, family member or friend?: No Do you have trouble with day-to-day activities such as bathing, preparing meals, shopping, managing finances, etc.?: No Are you currently unemployed and looking for a job?: No Are you interested in more education?: No Please select the resources that you would like help with: None Currently or been in a relationship where the following occur: No concerns reported THRIVE Score: 0 AUDIT C Alcohol Use Questionnaire (AUDIT-C) 1. How often do you have a drink containing alcohol?: Monthly or less 2. How many drinks containing alcohol do you have on a typical day when you are drinking?: 1 or 2 3. How often do you have six or more drinks on one occasion?: Never Total Score: 1 MIKY-7 AMB Questionnaire MIKY-7 Date MIKY - 7 assessed: 03/28/24 Feeling nervous, anxious, or on edge: 0 = Not at all Not being able to stop or control worryin = Not at all Worrying too much about different things: 0 = Not at all Trouble relaxin = Not at all Being so restless that it is hard to sit still: 0 = Not at all Becoming easily annoyed or irritable: 0 = Not at all Feeling afraid as if something awful might happen: 0 = Not at all Total MIKY-7 score (0-4 normal; 5-9 mild; 10-14 moderate; 15-21 severe): 0 Source: Developed by Drs. Jon Webb, Blanquita Davidson, Grayson Medina and colleagues, with an educational eligio from [employer]. Physical exam (Primary Care) Vital Signs: Last Vital Signs Pulse 64 05/13/24 09:08 BP 122/76 05/13/24 09:08 Pulse Ox 97 05/13/24 09:08 Oxygen Delivery Method Room Air 05/13/24 09:08 BMI result Body Mass Index 25.9 Tobacco/Smoking Status: Tobacco use Status Tobacco use date assessed 10/01/23 05/13/24 09:11 Patient Tobacco Use Status Former Tobacco user 05/13/24 09:11 Tobacco use type Cigar (Occasionally) 05/13/24 09:11 e-Cigarette/Vaping Use Never Used 05/13/24 09:11 PHQ-9: PHQ-9 Score PHQ-9: Total score 0 05/19/24 06:48 Thrive Assessment: Date of Thrive Assessment Date Thrive assessed 05/06/24 05/13/24 09:11 Currently or been in a relationship where the following occur: No concerns reported Coding Level of Care Code Est Pt Level 4 (28351) Diagnoses Memory loss R41.3 Assessment & Plan Assessment & Plan (1) Memory loss: Code(s): R41.3 - Other amnesia Category: Medical Plan: Improving brain fog, some interval improvement in concentration. He can taper adderall down as tolerated He can come off wellbutrin if tolerated. He is awaiting memory clinic consult
[2024-05-13 09:08] VITALS: BP 122/76; PULSE 64; O2SAT 97; BMI 25.9
== END 2024-05-13 09:23 | disposition home or self-care (01) ==
PROVIDERS: PCP Internal Medicine; Visit Provider Internal Medicine
DX: R41.3 Other amnesia (principal)

== ENCOUNTER 2024-07-01 10:01 | Outpatient (AMB) | payer OTHER, SELFPAY ==
--- NOTE | 2024-07-01 10:22 | A.OFFPC_ITS ---
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 Allergies No Known Allergies Allergy (Verified 07/01/24 10:23) Medication List - Last Reconciled 07/01/24 by Noemí Lee MD biotin 5,000 mcg PO DAILY bupropion HCl XL 150 mg PO DAILY [calcium 600 and vitamin d3 ,] cetirizine (All Day Allergy (cetirizine)) 10 mg PO DAILY PRN cholecalciferol (vitamin D3) 25 mcg PO DAILY dextroamphetamine-amphetamine 20 mg (Adderall) 20 mg PO .morning divalproex ER 500 mg PO TID ibuprofen 200 mg PO Q6H PRN mecobalamin (vitamin B12) 500 mcg PO DAILY multivitamin 1 tab PO DAILY olanzapine 5 mg PO BEDTIME Tobacco use date assessed: 07/01/24 Fall risk assessment: No Falls in past year Last assessed Fall Risk: 07/01/24 Dental Screening Dental Screen Date: 10/01/23 HPI HPI Comments History of Present Illness Details Patient is a 69-year-old male with history of bipolar disorder, brain fog/attention deficit, foot pain, osteopenia, low back painpresenting for follow up Neuropsych: Brain fog has lifted. 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 Referred to memory clinic in Dec. following with psych on [employer], an [employer] [facility]. He is doing well on buproprion, adderall and olanzapine. Had significant bradycardia with lithium. MSK: low back strain at times. Foot pain with interval improvement. Sees podiatry. Has osteopenia. Heme/Onc: Follows with [facility]. Recent labs with mild lymphocytosis, decreased platelets-repeat including citrate platelets still abnormal. Smear with decreased, large platelets otherwise reassuring. continues to suffer from some fatigue ROS see HPI PHYSICAL EXAM: GENERAL: Alert and oriented x 3. NAD EYES: EOMI. Anicteric. HENT: Moist mucous membranes. No scleral icterus. No cervical lymphadenopathy. LUNGS: Clear to auscultation bilaterally. CARDIOVASCULAR: Regular rate and rhythm. No murmur. No JVD. ABDOMEN: Soft, non-tender +bs EXTREMITIES: No edema. Non-tender. SKIN: No rashes or lesions. Warm. NEUROLOGIC: No focal neurological deficits. CN II-XII grossly intact PSYCHIATRIC: Cooperative. Appropriate mood and affect [facility] Medical History Hernia Bradycardia Surgical History H/O endoscopy No pertinent past surgical history Social History Household Members: None Housing: Apartment Alcohol intake: current Patient Tobacco Use Status: Former Tobacco user Tobacco use type: Cigar (Occasionally) Years Smoked: 20 e-Cigarette/Vaping Use: Never Used Second Hand Smoke Exposure: No service: No Current occupational status: retired Cognitive needs: No Hearing needs: No Vision needs: No Questionnaire Thrive Questionnaire Date Thrive assessed: 05/06/24 I am a: Patient What is your living situation today?: I have a steady place to live Within the past 12 months, did the food you bought not last and you didn't have the money to get more?: Never true Within the past 12 months, did you worry whether your food would run out before you got money to buy more?: Never true Do you have trouble paying for medicines?: No Do you have trouble getting transportation to medical appointments?: No Do you have trouble paying your heating and electricity bill?: No Do you have trouble taking care of your child, family member or friend?: No Do you have trouble with day-to-day activities such as bathing, preparing meals, shopping, managing finances, etc.?: No Are you currently unemployed and looking for a job?: No Are you interested in more education?: No Please select the resources that you would like help with: None Currently or been in a relationship where the following occur: No concerns reported THRIVE Score: 0 MIKY-7 AMB Questionnaire MIKY-7 Date MIKY - 7 assessed: 03/28/24 Source: Developed by Drs. Jon Webb, Blanquita Davidson, Grayson Medina and colleagues, with an educational eligio from [employer]. Physical exam (Primary Care) Vital Signs: Last Vital Signs Pulse 63 07/01/24 10:25 Resp 12 07/01/24 10:25 BP 116/70 07/01/24 10:25 Pulse Ox 97 07/01/24 10:25 Oxygen Delivery Method Room Air 07/01/24 10:25 BMI result Body Mass Index 26.3 Tobacco/Smoking Status: Tobacco use Status Tobacco use date assessed 07/01/24 07/01/24 10:34 Patient Tobacco Use Status Former Tobacco user 07/01/24 10:24 Tobacco use type Cigar (Occasionally) 07/01/24 10:24 e-Cigarette/Vaping Use Never Used 07/01/24 10:24 Thrive Assessment: Date of Thrive Assessment Date Thrive assessed 05/06/24 07/01/24 10:24 Currently or been in a relationship where the following occur: No concerns reported Coding Level of Care Code Est Pt Level 4 (75815) Diagnoses Bipolar depression F31.9 Chronic low back pain with sciatica, sciatica laterality unspecified, unspecified back pain laterality M54.40; G89.29 Chronicity: chronic Back pain laterality: unspecified Sciatica laterality: sciatica laterality unspecified Sciatica presence: with sciatica Abnormal CBC R79.89 Assessment & Plan Assessment & Plan (1) Bipolar depression: Code(s): F31.9 - Bipolar disorder, unspecified Category: Medical Plan: Stable on current medications. Continues psych follow up monthly (2) Low back pain: Code(s): M54.50 - Low back pain, unspecified Category: Medical Qualifiers: Chronicity: chronic Back pain laterality: unspecified Sciatica laterality: sciatica laterality unspecified Sciatica presence: with sciatica Qualified Code(s): M54.40 - Lumbago with sciatica, unspecified side; G89.29 - Other chronic pain Plan: stable. PT ordered (3) Abnormal CBC: Code(s): R79.89 - Other specified abnormal findings of blood chemistry Category: Medical Plan: continue follow up heme/onc Orders: Referrals Orthopedics Referral M54.50 - Low back pain, unspecified Medications: Changed From dextroamphetamine-amphetamine 20 mg (Adderall) administer doses at least 4-6 hours apart; Partial Fill upon patient request. 20 mg PO .morning To dextroamphetamine-amphetamine 20 mg (Adderall) administer doses at least 4-6 hours apart; Partial Fill upon patient request. 20 mg PO BID 60 tabs 0RF
[2024-07-01 10:25] VITALS: BP 116/70; PULSE 63; RESP 12; O2SAT 97; BMI 26.3
--- OUTSIDE RECORDS SUMMARY | 2024-07-01 11:41 | XMS_ITS | Encounter Summary ---
Author Organization [facility] Address [address] [place] [address] Care Team Providers Care Sausage Cooker Name Role Phone Saige Medeiros MD Primary Care Provider Colt Skelton MD Primary Care Provider Encounter Details Date Type Department Care Team Description 04/22/2013 Hospital Medical Records [address] [place] [address] [address] Social History Tobacco Use Types Packs/Day Years Used Date Smoking Tobacco: Every Day Cigarettes 1 Cigars Smokeless Tobacco: Never Comments:1-2/week in Spring and summer Alcohol Use Standard Drinks/Week Comments Yes 0 (1 standard drink = 0.6 oz pur e alcohol) occasional social Physical Activity Answer Date Recorded On average, how many days pe r week do you engage in moderate to strenuous exercise (like walking fast, running, jogging, dancing, swimming, biking, or other activities that cause a light or heavy sweat)? 0 days 05/14/2019 On average, how many minutes do you engage in exercise at this level? 0 min 05/14/2019 Stress Answer Date Recorded Do you feel stress - tense, restless, nervous, or anxious, or unable to sleep at night because your mind is troubled all the time - these days? Only a little 05/14/2019 Financial Resource Strain Answer Date R ecorded How hard is it for you to pa y for the very basics like food, housing, medical care, and heating? Not hard at all 05/14/2019 Intimate Partner Violence Answer Date R ecorded Within the last year, have y ou been afraid of your partner or ex-partner? No 05/14/2019 Within the last year, have y ou been humiliated or emotionally abused in other ways by your partner or ex-partner? No Within the last year, have y ou been kicked, hit, slapped, or otherwise physically hurt by your partner or ex-partner? No 05/14/2019 Within the last year, have y ou been raped or forced to have any kind of sexual activity by your partner or ex-partner? No 05/14/2019 Food Insecurity Answer Date Recorded Within the past 12 months, y ou worried that your food would run out before you got money to buy more. Never true 05/14/2019 Within the past 12 months, t he food you bought just didn't last and you didn't have money to get more. Never true 05/14/2019 Transportation Needs Answer Date Record ed In the past 12 months, has l ack of transportation kept you from medical appointments or from getting medications? No 04/24 In the past 12 months, has l ack of transportation kept you from meetings, work, or getting things needed for daily living? No 05/14/2019 Sex Assigned at Date Recorded Not on file documented as of this encounter Plan of Treatment Not on file documented as of this encounter Visit Diagnoses Not on filedocumented in this encounter Care Teams Sausage Cooker Relationship Specialty Start Date End Date Saige Medeiros MD PCP - General 06/16/1991 08/07/23 Colt Graham MD [address] [place] [id number] PCP - General Internal Medicine 08/08/23 documented as of this encounter
--- OUTSIDE RECORDS SUMMARY | 2024-07-01 11:41 | XMS_ITS ---
Author Organization [facility] Address [address] [address] Care Team Providers Care Head Of English Name Role Phone Noemí Lee Primary Care Provider MIRELA Dotson [phone] Allergies No Known Allergies REASON FOR VISIT orthotics Medications Medication SIG (Take, Route, Frequency, Duration) Notes Start Date End Date Status ZyPREXA Active Wellbutrin Active Encounters Encounter Location Date Provider Diagnosis [facility] [address] [address] 11/28/2023 MIRELA DUMONT Plan Of Treatment Next Appt Details Provider Name:MIRELA DUMONT, 02/25/2025 08:00:00 AM, [address] [address], [place], [address], Progress Notes * Jon STEPHENSDOB:1954 (69 yo M)Acc No.[id number]:11/28/2023 Consult note Patient:?KAT Jon Provider:?Mirela Dumont DPM :1955???Age:68 Y???Sex:Male Fermin e:11/28/2023 Phone: Address:[address], [id number] Pcp:Noemí Lee Subjective: * Chief Complaints: * ???1. Orthotics. * Medical History:?Mild lympho cytosis, Fatigue, Low back strain, Bipolar disorder, Scrotal pain, Hernia, Bradycardia, Osteopenia, Thrombocytopenia. * Social History:?Tobacco: former smoker Alcohol: never. * Medications:?Taking ZyPREXA , Taking Wellbutrin * Allergies:?N.K.D.A. Objective: * Vitals:? Therapeutic Interventions: Assessment: Plan: * Treatment: * Billing Information: * Visit Code:? * Procedure Codes:? * Electronic signature of KIMO DUMONT D.P.M on 07/01/2024 at 11:41 AM EDT Sign off status: Pending * Provider:?Mirela Dumont DPM Date:? 11/28/2023 Generated for Sam macias/Jesús/Poncho on:?07/01/2024 11:41 AM EDT
--- OUTSIDE RECORDS SUMMARY | 2024-07-01 11:41 | XMS_ITS | Encounter Summary ---
Author Organization [facility] Address [address] [place] [address] Care Team Providers Care Algorithm Design Engineer Name Role Phone Saige Medeiros MD Primary Care Provider Colt Skelton MD Primary Care Provider Encounter Details Date Type Department Care Team Description 07/11/2011 Consulting Psychologist Report Medical Records [address] [place] [address] Jon Roberts Social History Tobacco Use Types Packs/Day Years Used Date Smoking Tobacco: Former Cigarettes 1 Cigars Comments:one pack per week, started at age 14, occ. cigar Alcohol Use Standard Drinks/Week Comments Not Asked 0 (1 standard drink = 0.6 oz pur e alcohol) Physical Activity Answer Date Recorded On average, [...] on filedocumented in this encounter Care Teams Algorithm Design Engineer Relationship Specialty Start Date End Date Saige Medeiros MD PCP - General 06/16/1991 08/07/23 Colt Graham MD [address] [place] [id number] PCP - General Internal Medicine 08/08/23 documented as of this encounter
--- OUTSIDE RECORDS SUMMARY | 2024-07-01 11:41 | XMS_ITS | Encounter Summary ---
Author Organization [facility] Address [address] [place] [address] Care Team Providers Care Coal Mine Inspector Name Role Phone Saige Medeiros MD Primary Care Provider Colt Skelton MD Primary Care Provider Encounter Details Date Type Department Care Team Description 02/11/2014 Release of Information Medical Records [address] [place] [address] Abstract, Provider Social History Tobacco Use Types Packs/Day Years Used Date Smoking Tobacco: Some Days Cigarettes 1 Cigars Comments:one pack per week, started at age 14, occ. cigar Alcohol Use Standard Drinks/Week Comments Yes 0 [...] on filedocumented in this encounter Care Teams Coal Mine Inspector Relationship Specialty Start Date End Date Saige Medeiros MD PCP - General 06/16/1991 08/07/23 Colt Graham MD [address] [place] [address] PCP - General Internal Medicine 08/08/23 documented as of this encounter
--- OUTSIDE RECORDS SUMMARY | 2024-07-01 11:42 | XMS_ITS | Encounter Summary ---
Author Organization [facility] Address [address] [place] [address] Care Team Providers Care Manager Administration Name Role Phone Saige Medeiros MD Primary Care Provider Colt Skelton MD Primary Care Provider Reason for Visit * Reason Onset Date Comments radiology 08/27/2019 mri testing Encounter Details Date Type Department Care Team Description 08/27/2019 Telephone MRI - [address] [address] Saige Medeiros MD radiology (mri testing) Social History Tobacco Use Types Packs/Day Years [...] on file documented as of this encounter Miscellaneous Notes * Telephone Encounter - Saige Medeiros MD - 08/27/2019 4:19 PM EDT Bryan, you are awesome, as usual. Thanks. * Telephone Encounter - Bryan Walter - 08/27/2019 11:18 AM EDT Mri pelvis requested is still pending approval through insurance, I contacted office today in regards to patient up coming appt and was told to mail Cat images to the office; report was already faxed, the patient does not have an appointment with then unit next week. Thanks. Bryan, Mri Department. documented in this encounter Plan of Treatment Not on file documented as of this encounter Visit Diagnoses Not on filedocumented in this encounter Care Teams Manager Administration Relationship Specialty Start Date End Date Saige Medeiros MD PCP - General 06/16/1991 08/07/23 Colt Graham MD [address] [place] [address] PCP - General Internal Medicine 08/08/23 documented as of this encounter
--- OUTSIDE RECORDS SUMMARY | 2024-07-01 11:42 | XMS_ITS | Encounter Summary ---
Author Organization [facility] Address [address] [place] [address] Care Team Providers Care Interpretive Program Coordinator Name Role Phone Saige Medeiros MD Primary Care Provider Colt Skelton MD Primary Care Provider Encounter Details Date Type Department Care Team Description 07/08/2019 Telephone Internal Medicine - [address], [address] [place] [address] Saige Medeiros MD Social History Tobacco Use Types Packs/Day Years [...] on filedocumented in this encounter Care Teams Interpretive Program Coordinator Relationship Specialty Start Date End Date Saige Medeiros MD PCP - General 06/16/1991 08/07/23 Colt Graham MD [address] [place] [address] PCP - General Internal Medicine 08/08/23 documented as of this encounter
--- OUTSIDE RECORDS SUMMARY | 2024-07-01 11:42 | XMS_ITS | Encounter Summary ---
Author Organization [facility] Address [address] [place] [address] Care Team Providers Care Senior Net Software Developer Name Role Phone Saige Medeiros MD Primary Care Provider Colt Skelton MD Primary Care Provider Encounter Details Date Type Department Care Team Description 05/10/2018 Telephone Adult Medicine [facility] [address] [place] [address] Steve Marquez PA-C Social History Tobacco Use Types Packs/Day Years Used Date Smoking Tobacco: Every Day Cigarettes 1 Cigars Smokeless Tobacco: Never Comments:about 7 a day the l ast few weeks. Alcohol Use Standard Drinks/Week Comments Yes 0 [...] encounter Miscellaneous Notes * Telephone Encounter - Noemí Alexandra - 05/10/2018 8:45 AM EST Left message to call back. Please put to [phone] or re-message to A side * Telephone Encounter - Noemí Alexandra - 05/10/2018 8:45 AM EST ----- Message from Steve Marquez PA-C sent at 05/10/2018 8:26 AM EST ----- Please call patient and advise that his sleep study was positive for moderate sleep apnea. If you would like to try using CPAP let me know and I will put in the referral to pulmonology to get this set up. documented in this encounter Plan of Treatment Not on file documented as of this encounter Visit Diagnoses Not on filedocumented in this encounter Care Teams Senior Net Software Developer Relationship Specialty Start Date End Date Saige Medeiros MD PCP - General 06/16/1991 08/07/23 Colt Graham MD [address] [place] [address] PCP - General Internal Medicine 08/08/23 documented as of this encounter
--- OUTSIDE RECORDS SUMMARY | 2024-07-01 11:42 | XMS_ITS | Clinical Summary ---
Author Organization [facility] Address [address] [place] [address] Care Team Providers Care Cool Roofing Installer Name Role Phone Colt Graham MD Primary Care Provider Allergies No known active allergies Medications Medication Sig Dispensed Refills Start Date End Date Status bisacodyl (DULCOLAX) 5 MG EC tablet Take 4 bisacodyl tabs 1 -2 hours before starting the bowel prep. 4 Tab 0 06/07/2018 Active polyethylene glycol (COLYTE WITH FLAVOR PACKS) 240 G solution Drink half gallon, 4 hours rest, and finish the remainder at your pace. 4000 mL 0 06/07/2018 Active lamotrigine (LAMICTAL) 100 MG tablet Take 1 Tab by mouth daily. 30 Tab 0 11/10/2019 Active lithium (ESKALITH) 450 MG CR tablet Take 2 Tabs by mouth daily. 60 Tab 0 11/10/2019 Active Active Problems Problem Noted Date Obstructive sleep apnea moderate AHI 23 05/08/2018 Overview: [facility] Home Polysomnogram: Date 05/07/2018; AHI 23, Unclassified apneas 0; Obstructive apneas 29; Central apneas 1; Mixed apneas 0; hypopneas 97; average oxygen saturation 93% (lowest 81% without saturations <88% for 5% or more of study) - Obstructive Sleep Apnea - moderate; mostly hypopneas with obstructive apneas; without sleep related hypoventilation by 2019 home polysomnogram. Lyme disease 04/11/2018 Acute lower GI bleeding 03/24 08/03[facility] EGD,CN,capsule endoscopy, tagged RBC x2 neg, transfused x2, Dx likely diverticulosis bleed 04/29/2013 Bipolar 1 disorder 04/10/2005 Overview: Re:Nephrology consult,. 05/2019: All attempts exhausted to reach patient to book appt. KMS. Resolved Problems Problem Noted Date Resolved Date Snoring, no sleep apnea by excellent poly 200905/08/2018 Immunizations Name Administration Dates Next Due Influenza (> 6 Months) 04/03/2019,2015,02/12/2014, 012,01/02/2009 Influenza H1N1 Pandemic Flu Vaccine 05/17/2009 Influenza Vaccine-preservati ve Free-quadrivalent 4 Years 05/07/2018 Influenza Vaccine-quadrivale nt 4 Years Plus 04/04/2017 TD (STATE SUPPLIED FOR ADULT S AND CHILDREN) 04/10/2005 Tdap 02/16/2012 deact 04/10/2005 Family History Medical History Relation Name Comments colitis Brother Colon Polyps Father No Known Problems Mother No Known Problems Sister 1 No Known Problems Sister 2 Relation Name Status Comments Brother Alive colitis Father Alive Mother Alive Paternal Grandfather (Age 55) co [place] Sister 1 Alive Sister 2 Alive Social History Tobacco Use Types Packs/Day Years Used Date Smoking Tobacco: Every Day Cigarettes 1 Cigars Smokeless Tobacco: Never Tobacco Cessation:Ready to Q uit: No; Counseling Given: Yes Comments:1-2/week in Spring and summer Alcohol Use [...] Assigned at Date Recorded Not on file Last Filed Vital Signs Vital Sign Reading Time Taken Comments Blood Pressure 118/76 08/19/2019 3:46 PM EDT Pulse 64 05/14/2019 3:04 PM EST Temperature 36.8 ??C (98.2 ??F) 04/05/2018 9:33 AM ES T Respiratory Rate 12 08/19/2019 3:46 PM EDT Oxygen Saturation 98% 09/23/2009 12:54 PM EDT Inhaled Oxygen Concentration - - Weight 87.1 kg (192 lb) 08/19/2019 3:46 PM EDT Height 180.3 cm (5' 11 ) 08/19/2019 3:46 PM EDT Body Mass Index 26.78 08/19/2019 3:46 PM EDT Plan of Treatment Health Maintenance Due Date Last Done Comments SHINGLES VACCINE (1 of 2) 2007 COLON CANCER SCREENING 04/18/2018 3 (External Completion), 04/18/2013, 09/09/2007 (No reason specified), Additional history exists TOBACCO CHECK/ADVISE 05/14/2021 05/14/2019 PNEUMOCOCCAL VACCINE (1 - PCV) 2022 DTAP/TDAP/TD (2 - Td or Tdap) 02/15/2022 02/16/2012, 04/10/2005 Covid-19 Vaccine (2 - 2022-2 4 season) 2023 04/03/2022 INFLUENZA (#1) 2023 04/03/2019 (Exte rnal Completion of Vaccination per patient), 04/03/2019, 05/07/2018, Additional history exists BMI CHECK/ADVISE 04/23/2024 05/14/2019, , 04/04/2017, Additional history exists CHOLESTEROL SCREENING 05/14/2024 05/14/2019 , 04/04/2017, 01/10/2016, Additional history exists HEPATITIS C SCREENING Completed 04/29/2013 Care Teams Cool Roofing Installer Relationship Specialty Start Date End Date Colt Graham MD [address] [place] [id number] PCP - General Internal Medicine 08/08/23
--- OUTSIDE RECORDS SUMMARY | 2024-07-01 11:42 | XMS_ITS | Encounter Summary ---
Author Organization [facility] Address [address] [place] [address] Care Team Providers Care Finishing Range Supervisor Name Role Phone Saige Medeiros MD Primary Care Provider Colt Skelton MD Primary Care Provider Encounter Details Date Type Department Care Team Description 09/30/2019 Refill Gastroenterology - [address] [place] [phone] Sander Yoder MD [address] [place] [address] Social History Tobacco Use Types Packs/Day Years [...] on filedocumented in this encounter Care Teams Finishing Range Supervisor Relationship Specialty Start Date End Date Saige Medeiros MD PCP - General 06/16/1991 08/07/23 Colt Graham MD [address] [place] [address] PCP - General Internal Medicine 08/08/23 documented as of this encounter
--- OUTSIDE RECORDS SUMMARY | 2024-07-01 11:42 | XMS_ITS | Patient Health Record ---
Author Organization [facility] Address [address] [address] Care Team Providers Care Transistor Tester Name Role Phone Noemí Lee Primary Care Provider UnavailBERNICE Greenwood Unavailable [phone] Allergies No Known Allergies Reason For Referral No Information Medications Medication SIG (Take, Route, Fr equency, Duration) Notes Start Date End Date Status Adderall 10 MG 1 tablet Orally Twice a day 024 Active OLANZapine 10 MG 1 tablet Orally Once a day 2023 Active Depakote 125 MG 1 tablet Orally Twice a day Active ZyPREXA Active Wellbutrin Active Problems Problem Type SNOMED Code ICD Code Onset Dates Problem Status W/U Status Risk Notes Problem 910809719 Hammer toe of right foot (M20.41) Active confirmed Vital Signs Heart Rate 62 /min 02/25/2024 Temperature 96.2 degrees Fahrenheit 02/25/2024 Respiratory Rate 16 /min 02/25/2024 Height 5ft 10in in 02/25/2024 Weight 180.8 lbs 02/25/2024 BMI 25.94 kg/m2 02/25/2024 Encounters Encounter Location Date Provider Diagnosis [facility] [address] [address] 12/31/2023 BERNICE MACARIO PTTD (posterior tibial tendon dysfunction) M76.829 ; Hammer toe of right foot M20.41 ; Metatarsalgia, right foot M77.41 ; Metatarsalgia, left foot M77.42 ; Pain in left toe(s) M79.675 and Pain in right toe(s) M79.674 [facility] [address] 02/25/2024 BERNICE MACARIO PTTD (posterior tibial tendon dysfunction) M76.829 ; Hammer toe of right foot M20.41 ; Metatarsalgia, right foot M77.41 ; Metatarsalgia, left foot M77.42 ; Subungual hematoma of toenail of left foot, sequela S90.222S ; Pain in left toe(s) M79.675 and Pain in right toe(s) M79.674 [facility] [address] [facility] [address] [facility] 11/05/2023 BERNICE RENALDO Assessments Encounter Date Diagnosis (ICD Code) Assessment Notes Treatment Notes Treatment Clinical Notes [...] Pain in right toe(s) (ICD-10 - M79.674) Plan Of Treatment Pending Test Test Name Order Date X ray : Foot, left 3v 12/31/2023 X ray : Foot, right 3v 12/31/2023 Next Appt Details Provider Name:BERNICE MACARIO, 02/25/2025 08:00:00 AM, [address] [facility] [address], [place], [address], Insurance Providers Payer Name Payer Address Payer Phone Subscriber Number Group Number Insured Name Patient Relationship to Insured Coverage Start Date Coverage End Date [employer] Medicare [address] [place] [phone] [id number] Jon Mcleod Self - patient is the insured Medical (General) History Medical History History ICD Code mild lymphocytosis fatigue low back strain bipolar disorder scrotal pain hernia bradycardia osteopenia thrombocytopenia + COVID 12/2023 COVID vaccinated X 3 (Pfizer)
--- OUTSIDE RECORDS SUMMARY | 2024-07-01 11:42 | XMS_ITS ---
Author Organization [facility] Address [address] [place] [address] Care Team Providers Care Elementary School Teacher Name Role Phone KathrineVestaNoemí Primary Care Provider MIRELA Dotson [phone] Allergies No Known Allergies REASON FOR VISIT f/u with orthotics Medications Medication SIG (Take, Route, Fr equency, Duration) Notes Start Date End Date Status Adderall 10 MG 1 tablet Orally Twice a day 024 Active OLANZapine 10 MG 1 tablet Orally Once a day 2023 Active Depakote 125 MG 1 tablet Orally Twice a day Active ZyPREXA Active Wellbutrin Active Vital Signs Temperature 96.2 degrees Fahrenheit 02/25/20 24 Heart Rate 62 /min 02/25/2024 Respiratory Rate 16 /min 02/25/2024 Height 5ft 10in in 02/25/2024 Weight 180.8 lbs 02/25/2024 BMI 25.94 kg/m2 02/25/2024 Encounters Encounter Location Date Provider Diagnosis [facility] [address] [address] 02/25/2024 MIRELA DUMONT PTTD (posterior tibial tendon dysfunction) M76.829 ; Hammer toe of right foot M20.41 ; Metatarsalgia, right foot M77.41 ; Metatarsalgia, left foot M77.42 ; Subungual hematoma of toenail of left foot, sequela S90.222S ; Pain in left toe(s) M79.675 and Pain in right toe(s) M79.674 Assessments Encounter Date Diagnosis (ICD Code) Assessment [...] toe(s) (ICD-10 - M79.674) Plan Of Treatment Treatment Notes Assessment Notes Hammer toe of [...] Name:MIRELA DUMONT, 02/25/2025 08:00:00 AM, [address], [address], Progress Notes * BREANNMARYJOMicaela JonDOB:1954 (69 yo M)Acc No.[id number]:02/25/2024 Progress Note Patient:?Jon STEPHENS Provider:?Mirela Dumont DPM :1955???Age:69 Y???Sex:Male Fermin e:02/25/2024 Phone: Address:[address] [place] [address] [address], [place], [id number] Pcp:Noemí Lee Subjective: * Chief Complaints: * ???F/u with orthotics * HPI: ???Constitutional:? This 69 y/o male returns to my [...] review of systems is noncontributory. * Medical History:? * Surgical History:?Denies Pas t Surgical History * Hospitalization/Major Diagno stic Procedure:?Denies Past Hospitalization * Family History:?No Family Hi story documented..? * Social History:?former smoker. * Medications:?TakingAdderall 10 MG Tablet 1 tablet Orally Twice [...] reviewed and reconciled with the patient * Allergies:?N.K.D.A.no[Allerg ies Verified] Objective: * Vitals:?Wt:180.8lbs, Ht: 5ft 10in, BMI:25.94Index, HR:62/min, Temp:96.2F, RR:16/min, Ht-cm: 177.8, Wt-k.01 kg. * Examination: ???General Examination: ???GENERAL: Patient appears well nourished, with NAD. ?VASCULAR: [...] sneakers with custom orthotics. Assessment: * Assessment: 1.?Hammer toe of right foot - M20.41 (Primary)?2.?PTTD (posterior tibial tendon dysfunction) - M76.829?3.?Metatarsalgia, right foot - M77.41?4.?Metatarsalgia, left foot - M77.42?5.?Subungual hematoma of toenail of left foot, sequela - S90.222S?6. Pain in left toe(s) - M79.675?7.?Pain in right toe(s) - M79.674? Plan: * Treatment: 2.?Subungual hematoma of toe nail of left foot, sequela? Notes: We discussed the bruising under the nail beds. I explained that the nails would likely fall off when the new nails start to grow out. We discussed a normal nail typically takes 9-12 months to grow out completely.?? * Procedure Codes:? * Follow Up:?1 Year * Billing Information: * Visit Code:? 90274 Office Visit, Est Pt., Level 3. * Procedure Codes:? * Sign off status: Completed true * Provider:?Mirela Dumont DPM Date:? 02/25/2024 Generated for Sam macias/Jesús/Kathyitting on:?07/01/2024 11:42 AM EDT History and Physical Notes * HPI (History [...]
--- OUTSIDE RECORDS SUMMARY | 2024-07-01 11:42 | XMS_ITS | Encounter Summary ---
Author Organization [facility] Address [address] [place] [address] Care Team Providers Care Children'S Lunchroom Supervisor Name Role Phone Saige Medeiros MD Primary Care Provider Colt Skelton MD Primary Care Provider Encounter Details Date Type Department Care Team Description 09/21/2004 Orders Only Medical [address] [place] [address] Stacey Marcum MD BIPOLAR - MOST RECNT MIXED - PARTL REMISSN (Primary Dx) Social History Tobacco Use Types Packs/Day Years Used Date Smoking Tobacco: Never Assessed Physical Activity Answer Date Recorded On average, [...] as of this encounter Plan of Treatment Scheduled Orders Name Type Priority Associated Diagnoses Orde r Schedule VENIPUNCTURE Lab Routine Bipolar - Most Recnt Mixed - Partl Remissn Ordered: 09/21/2004 documented as of this encounter Procedures Procedure Name Priority Date/Time Associated Diagnosis Comments TSH Routine 09/21/2004 9:02 AM EDT Bipolar - Most Recnt Mixed - Partl Remissn CHG CREATININE BLOOD Routine 09/21/2004 9:02 AM EDT Bipolar - Most Recnt Mixed - Partl Remissn CHG DRUG SCREEN QUANTITATIVE LITHIUM Routine 09/21/2004 9:02 AM EDT Bipolar - Most Recnt Mixed - Partl Remissn documented in this encounter Results * TSH (09/21/2004 9:02 AM EDT) TSH 1.60 0.40 - 4.00 uIU/ml [facility] 09/21/2004 9:02 AM EDT 09/21/2004 9:03 AM EDT Stacey Marcum MD LAB [facility] [place] * LITHIUM, ASSAY (09/21/2004 9:02 AM EDT) LITHIUM LEVEL 0.9 0.6 - 1.2 mEq/L [facility] 09/21/2004 9:02 AM EDT 09/21/2004 9:03 AM EDT Stacey Marcum MD LAB Performing Organization Address [facility] Co de Phone Number [facility] * CREATININE, BLOOD ASSAY (09/21/2004 9:02 AM EDT) creatinine 1.0 0.7 - 1.5 mg/dL [facility] 09/21/2004 9:02 AM EDT 09/21/2004 9:03 AM EDT Stacey Marcum MD LAB Performing Organization Address [facility] Co de Phone Number [facility] documented in this encounter Visit Diagnoses Diagnosis Bipolar I disorder, most recent episode (or current) mixed, in partial or unspecified remission- Primary documented in this encounter Care Teams Children'S Lunchroom Supervisor Relationship Specialty Start Date End Date Saige Medeiros MD PCP - General 06/16/1991 08/07/23 Colt Graham MD [address] [place] [id number] PCP - General Internal Medicine 08/08/23 documented as of this encounter
--- OUTSIDE RECORDS SUMMARY | 2024-07-01 11:42 | XMS_ITS | Clinical Summary ---
Author Organization [facility] Address [address] [place] [address] Care Team Providers Care Knitting Machine Fixer Head Name Role Phone Unavailable Primary Care Provider Unavailabl e Source Comments PLEASE NOTE, if this patient is a minor, it may be UNLAWFUL to discuss sensitive information that is contained in these records (such as FAMILY PLANNING, MENTAL HEALTH or SUBSTANCE ABUSE) with the minor patient's parent or other person without the patient's specific authorization.[facility] Allergies No known active allergies Medications divalproex (DEPAKOTE ER) 500 mg 24 hr tablet Take 1,500 mg by mouth once daily 2 Active fluticasone (FLONASE) 50 mcg/actuation nasal spray fluticasone propionate 50 mcg/actuation nasal spray,suspension Active OLANZapine (ZYPREXA) 5 mg tablet Take 5 mg by mouth nightly at bedtime Active ipratropium (ATROVENT) 42 mcg (0.06 %) nasal sprayIndication s:Viral URI with cough Place 1 [place] into the nostril(s) 2 (two) times daily as needed for rhinitis 15 mL 3 3 Active Active Problems Problem Noted Date Diagnosed Date Dependence on nicotine from cigarettes 3 Overview (10/18/2022): Creating chronic OM. Weaned off 07/2022 cigars x 40 yrs Chronic suppurative otitis media of both ears Overview (04/29/2022): Smoker Elevated LFTs 04/29/2022 Overview (04/29/2022): Multiple meds vs EtOH vs body habitus Hypertriglyceridemia 04/10/2022 Bradycardia, sinus 04/10/2022 Overview (04/29/2022): Thought by psychiatry 01/2022 [facility] to be due to long-term Li maintenance dose. Bipolar disorder, current ep isode manic w/o psychotic features, severe ([facility]) 01/25/2022 Obstructive sleep apnea 05/08/2018 Overview (04/29/2022): [facility] Home Polysomnogram: Date 05/07/2018; AHI 23, Unclassified apneas 0; Obstructive apneas 29; Central apneas 1; Mixed apneas 0; hypopneas 97; average oxygen saturation 93% (lowest 81% without saturations <88% for 5% or more of study) - Obstructive Sleep Apnea - moderate; mostly hypopneas with obstructive apneas; without sleep related hypoventilation by 2018 home polysomnogram. Lyme disease 04/11/2018 Acute lower GI bleeding 04/29/2013 Bipolar 1 disorder ([facility]) 04/10/2005 Overview (04/29/2022): Re:Nephrology consult,. 05/2019: All attempts exhausted to reach patient to book appt. KMS. Immunizations Name Administration Dates Next Due Flu, Adjuvant, 65y+ (Fluad) 04/04/2017 Flu, Cell Culture based, Pre servative Free, 6m+, Flucelvax 05/07/2018 INFLUENZA VIRUS VACCINE P&EM IC FORMULATION 05/17/2009 INFLUENZA, SEASONAL, INJECTABLE 04/03/20 19,01/10/2016,02/12/2014,2011,01/02/2009 TDAP 02/16/2012 Td(adult),Lf unspecified,pre servative free 04/10/2005 Social History Tobacco Use Types Packs/Day Years Used Date Smoking Tobacco: Former Cigarettes S tarted: 04/23/1968 Cigars Smokeless Tobacco: Never Comments:Former cigarette sm oker, now occasional cigar, less than one per month Alcohol Use Standard Drinks/Week Comments Yes 8 (1 standard drink = 0.6 oz pur e alcohol) occasional Social Connections Answer Date Recorded Connectedness 0 12/31/2023 Financial Resource Strain Answer Date R ecorded Financial Resource Strain 0 2021 Stress Answer Date Recorded Stress 0 02/12/2022 Physical Activity Answer Date Recorded Physical Activity 0 02/12/2022 Food Insecurity Answer Date Recorded Food 0 02/12/2022 Transportation Needs Answer Date Record ed Transportation 0 02/12/2022 Housing Stability Answer Date Recorded Housing 0 02/12/2022 Safety and Environment Answer Date Bird rded Safety 0 02/12/2022 Utilities Answer Date Recorded Utilities 0 02/12/2022 Employment Answer Date Recorded Stress 0 02/12/2022 Sex and Gender Information Value Date Recorded Sex Assigned at Male 02/12/2022 5:24 PM PDT Legal Sex Male 5:04 PM PDT Gender Identity Male 02/12/2022 5:24 PM PDT Sexual Orientation Straight 02/12/2022 5: 24 PM PDT Last Filed Vital Signs Vital Sign Reading Time Taken Comments Blood Pressure 142/90 12/11/2022 8:09 AM EDT Pulse 62 12/11/2022 8:09 AM EDT Temperature 36.5 ??C (97.7 ??F) 12/11/2022 8:09 AM ED T Respiratory Rate - - Oxygen Saturation 98% 12/11/2022 8:09 AM EDT Inhaled Oxygen Concentration - - Weight 83.9 kg (185 lb) 12/11/2022 8:09 AM EDT Height 175.3 cm (5' 9 ) 12/11/2022 8:09 AM EDT Body Mass Index 27.32 12/11/2022 8:09 AM EDT Plan of Treatment Health Maintenance Due Date Last Done Comments Hepatitis C Screening 1955 Tobacco Screening 1955 Tobacco Cessation Counseling (#1) 04/23/1968 CT Colonography 2002 Colonoscopy 2002 Colorectal Cancer Screening 2002 FIT/gFOBT 2002 Fecal DNA 2002 Flexible Sigmoidoscopy 2002 Imm-Pneumococcal 65+ (1 of 1 - PCV) 2007 Imm-Zoster, Recombinant (1 of 2) 2007 Abdominal Aortic Aneurysm Screening 2022 Imm-DTaP/Tdap/Td (2 - Td or Tdap) 02/15/2022 012, 04/10/2005 Diabetes Screening 04/27/2023 04/27/2022, 01/27/2022 Lipid Screening 04/27/2023 04/27/2022, 01/27/2022 Falls Prevention 05/31/2023 05/31/2022 Medicare Annual Wellness Visit 10/19/2023 10/18/2022 Hypertension Screening (#1) 12/11/2023 [id number] ( season) 2023 Imm-Influenza (#1) 2023 04/03/2019, 0 05/07/2018, 04/04/2017, Additional history exists Alcohol and Drug Screen 04/23/2024 05/31/19 23, 05/31/2022, 04/10/2022 Depression Annual Screen 04/23/2024 12/11/2022 Procedures Procedure Name Priority Date/Time Associated Diagnosis Comments COMPREHENSIVE METABOLIC PANEL Routine 04/27/2022 10:07 AM EST Bradycardia, sinus LIPID PANEL Routine 04/27/2022 10:07 AM EST Bradycardia, sinus Hypertriglyceridem ia from Last 3 Months or Most Recently Relevant to Health Maintenance Results * (ABNORMAL) LIPID PANEL (04/27/2022 10:07 AM EST) CHOLESTEROL, TOTAL 178 <200 mg/dL [facility] HDL CHOLESTEROL 55 > OR = 40 mg/dL [facility] TRIGLYCERIDES 82 <150 mg/dL [facility] LDL-CHOLESTEROL 106(H) 99 mg/dL (calc) [facility] Comment: Reference range: <100 Desirable range <100 mg/dL for primary prevention; ?? <70 mg/dL for patients with CHD or diabetic patients with > or = 2 CHD risk factors. LDL-C is now calculated using the Gali calculation, which is a validated novel method providing better accuracy than the Friedewald equation in the estimation of LDL-C. Neo RAMOS et al. STEFAN. 2013;310(19): 6688-0881 (http://education.[employer]/faq/SZZ249) CHOL/HDLC RATIO 3.2 <5.0 (calc) [employer] NON-HDL CHOLESTEROL 123 <130 mg/dL (calc) [employer] Comment: For patients with diabetes plus 1 major ASCVD risk factor, treating to a non-HDL-C goal of <100 mg/dL (LDL-C of <70 mg/dL) is considered a therapeutic option. Blood Blood / Unknown 04/27/2022 1 0:07 AM EST 04/27/2022 10:08 AM EST Narrative [facility] - 04/27/2022 8:36 PM EST FASTING:YES us Jinny Jeff MD LAB - BLOOD DRAW Final Result [facility] [address] [place] [address], [facility] [address] ([address]) [place] [address] * (ABNORMAL) COMPREHENSIVE METABOLIC PANEL (04/27/2022 10:07 AM EST) GLUCOSE 83 65 - 99 mg/dL [facility] Comment: ?Fasting reference interval UREA NITROGEN (BUN) 22 7 - 25 mg/dL [facility] CREATININE (blood) 1.18 0.70 - 1.35 mg/dL [facility] EGFR 68 > OR = 60 mL/min/1 .73m2 [facility] Comment: The eGFR is based on the CKD-EPI 2020 equation. To calculate the new eGFR from a previous Creatinine or Cystatin C result, go to https://www.kidney.org/professionals/ kdoqi/gfr%5Fcalculator BUN/CREATININE RATIO NOT APPLICABLE 6 - 22 [employer] SODIUM 142 135 - 146 mmol/L [facility] [place] [facility] POTASSIUM 4.8 3.5 - 5.3 mmol/L [employer] CHLORIDE 107 98 - 110 mmol/L [employer] CARBON DIOXIDE 27 20 - 32 mmol/L [facility] CALCIUM 9.4 8.6 - 10.3 mg/dL [employer] PROTEIN, TOTAL 6.6 6.1 - 8.1 g/dL [employer] ALBUMIN 4.1 3.6 - 5.1 g/dL [employer] GLOBULIN 2.5 1.9 - 3.7 g/dL (calc) [facility] [place] [facility] ALBUMIN/GLOBUL IN RATIO 1.6 1.0 - 2.5 (calc) [employer] BILIRUBIN, TOTAL 0.6 0.2 - 1.2 mg/dL [facility] ALKALINE PHOSPHATASE 58 35 - 144 U/L [facility] AST 48(H) 10 - 35 U/L [facility] [place] [facility] ALT 81(H) 9 - 46 U/L [employer] [facility] Blood Blood / Unknown 04/27/2022 1 0:07 AM EST 04/27/2022 10:08 AM EST Narrative [facility] - 04/27/2022 8:36 PM EST FASTING:YES Jinny Jeff MD LAB - BLOOD DRAW Final Result [facility] [address] [address], [facility] [address] ([facility]) [place] [address] from Last 3 Months or Most Recently Relevant to Health Maintenance Insurance MEDICARE - [place] [employer] Advance Directives Documents on File Type Date Recorded Patient Executive Team Leader Expl anation Directives to Physicians 01/03/2023 12:00 AM [facility] Care Teams Knitting Machine Fixer Head Relationship Specialty Start Date End Date emily aceves Therapist 04/27/22
--- OUTSIDE RECORDS SUMMARY | 2024-07-01 11:42 | XMS_ITS ---
Author Organization [facility] Address [address] [address] Care Team Providers Care Booth Supervisor Name Role Phone Noemí Lee Primary Care Provider MIRELA Dotson Unavailable [phone] Allergies No Known Allergies REASON FOR VISIT orthotics Medications Medication SIG (Take, Route, Fr equency, Duration) Notes Start Date End Date Status ZyPREXA Active Wellbutrin Active Adderall 10 MG 1 tablet Orally Twice a day 024 Active OLANZapine 10 MG 1 tablet Orally Once a day 2023 Active Depakote 125 MG 1 tablet Orally Twice a day Active Problems Problem Type SNOMED Code ICD Code Onset Dates Problem Status W/U Status Risk Notes Problem [id number] Hammer toe of right foot (M20.41) Active confirmed Encounters Encounter Location Date Provider Diagnosis [facility] [address] [address] 12/31/2023 MIRELA DUMONT PTTD (posterior tibial tendon [...] Name:MIRELA DUMONT, 02/25/2025 08:00:00 AM, [address], [address], Progress Notes * Jon STEPHENSDOB:1954 (68 yo M)Acc No.[id number]:12/31/2023 Consult note Patient:?Jon STEPHENS Provider:?Mirela Dumont DPM :1955???Age:68 Y???Sex:Male Fermin e:12/31/2023 Phone: Address:[address] [place] [address] [address], [place], [id number] Pcp:Nomeí Lee Subjective: * Chief Complaints: * ???Orthotics * HPI: ???Constitutional:? This 68 y/o male presents to my [...] currently a walker and will walk around [employer] 3-5 miles a day for exercise. He [...] Hospitalization/Major Diagno stic Procedure:?Denies Past Hospitalization * Social History:?former smoker. * Medications:?TakingAdderall 10 [...] a day Taking ZyPREXA Taking Wellbutrin * Allergies:?N.K.D.A.no[Allerg ies Verified] Objective: * Examination: ???General Examination: ???GENERAL: Patient appears [...] custom orthotics. Therapeutic Interventions: Assessment: * Assessment: 1.?Hammer toe of right foot - M20.41 (Primary)?2.?PTTD (posterior tibial tendon dysfunction) - M76.829?3.?Metatarsalgia, right foot - M77.41?4.?Metatarsalgia, left foot - M77.42?5.?Pain in left toe(s) - M79.675?6.?Pain in right toe(s) - M79.674? Plan: * Treatment: Notes: This is an [...] later. He is in agreement with this plan.??2.?PTTD (posterior tibial tendon dysfunction)?Imaging: X ray : [...] on the lateral view. No fracture noted. 3.?Metatarsalgia, right foot?Imaging: X ray : Foot, right [...] on the lateral view. No fracture noted. 4.?Metatarsalgia, left foot?Imaging: X ray : Foot, left [...] on the lateral view. No fracture noted. 5.?Pain in left toe(s)?Imaging: X ray : Foot, [...] on the lateral view. No fracture noted. 6.?Pain in right toe(s)?Imaging: X ray : Foot, [...] lateral view. No fracture noted. * Procedure Codes:?33584 X-RAY EXAM OF FOOT 3 Views, Units: 2.00 * Follow Up:?4 weeks after rec eiving orthotis * Billing Information: * Visit Code:? 63046 Office Visit, New Pt., Level 3. * Procedure Codes:? 52754 X-RAY EXAM OF FOOT 3 Views. Units: 2.00. * Sign off status: Completed true * Provider:Rosanna Dumont DPM Date:? 12/31/2023 Generated for Sam macias/Jesús/Kathyitting on:?07/01/2024 11:41 AM EDT History and Physical Notes * [...] currently a walker and will walk around [employer] 3-5 miles a day for exercise. He [...]
--- OUTSIDE RECORDS SUMMARY | 2024-07-01 11:42 | XMS_ITS | Data Portability ---
Author Organization [place] - [facility], Allergy Address [address] [facility] [address] [place] [address] Care Team Providers Care Engineering Aide Name Role Phone CHELSEA JHONY Primary Care Provider Assessment Encounter Date Assessment Date Assessment LastModified by Organization Details LastModified Time 02/19/2024 02/19/2024 Patient with history of chronic ear disease status post mastoid surgery and subsequent muscle flap in the early 70s. He has a sensation for the last 2 months of postnasal drip and frequent throat clearing with change in voice. This occurred before his most recent bout of COVID-19. Examination shows a narrow left meatus without evidence of middle ear fluid. Voice is mildly raspy and transnasal fiberoptic examination shows some clear nasal discharge but left vocal fold paresis. I have suggested we start some ipratropium bromide nasal spray for the postnasal drip but perform a workup for left vocal fold paresis. We discussed this could be idiopathic, viral or possibly a lesion pressing on the nerve. [email or web address] Not available 02/19/2024 13:57:09 Plan of Treatment Reminders Order Date Submit Date Provider Last Modified By Organization Details Last Modified Time Details Appointments None recorded. Lab bun/creatin ine, ratio, serum 2023 [place] [facility] (Centralized Electronic Ordering - All Locations), Patient Can Go To The Location Of Their Choice, [id number] 06:23:40 Referral None recorded. Procedures None recorded. Surgeries None recorded. Imaging CT, chest, w/ contrast - with and without contrast... ;labs at [facility] 2023 [place] [facility], [address], [address], [place], [address], 4 11:34:52 CT, neck, soft tissue, w/ contrast - labs at [facility] 2023 024 [email or web address] [facility], [address], [address], [place], [address], 13:28:35 Medication Orders ipratropium bromide 21 mcg (0.03 %) nasal spray 2023 [id number], [address], [place], [id number], 13:56:11 Patient TargetsNo targets recorded. Patient InstructionsNo instructions recorded. Reason for Referral None Reported. Results Created Date Observation Date Name Description Value Unit Range Abnormal Flag Note LastModifiedBy Organization Detail LastModifiedTime 02/19/2002/20/2024 BUN+C REAT BUN 24 mg/dL 8-27 normal Not Available [facility] ([facility]) [address] [place], [address], 02/20/2024 06:23:40 02/19/2002/20/2024 BUN+C REAT creatinine 1.16 mg/dL 0.76-1 .27 normal Not Available [facility] ([facility]) [address] [place], [address], 02/20/2024 06:23:40 02/19/2002/20/2024 BUN+C REAT eGFR 69 mL/mi n/1.7 3 >59 normal Not Available [facility] ([facility]) [address] [place], [address], 02/20/2024 06:23:40 02/19/2002/20/2024 BUN+C REAT BUN/creatini ne ratio 21 10-24 normal Not Available [facility] ([facility]) [address] [place], [address], 02/20/2024 06:23:40 03/04/20 24 03/04/2024 CT, chest , w/ contr ast No observ ation record ed. [place] [facility] [address] [place] [address], [place], [address], 03/08/2024 08:35:17 03/04/20 24 03/04/2024 CT, neck, soft tissu e, w/ contr ast No observ ation record ed. [place] [facility] [address] [place] [address], [place], [address], 03/08/2024 08:35:17 03/06/20 24 03/04/2024 CT, neck, soft tissu e, w/ contr ast No observ ation record ed. [place] [facility] [address], [address], 03/08/2024 08:35:18 03/06/20 24 03/04/2024 CT, chest , w/ contr ast No observ ation record ed. [place] [facility] [address], [address], 03/08/2024 08:35:18 Result Notes None recorded. Problems Name Problem SNOMED Code Status Onset Date Resolution Date Notes Provider Name and Address Organization Details Recorded Time Chronic rhinitis 36166675 Active 024 LEELA COCHRAN MD [address] [place] [address], [place], [address], [facility] - [facility] 4 13:54:25 Paralysis of left vocal cord 605296279 Active 024 LEELA COCHRAN MD [address] [place] [address], [phone], [facility] - [facility] 4 13:54:38 Localized enlarged lymph nodes 492147155 Active 024 LEELA COCHRAN MD [address] [place], [place] [address] [place], [place], [phone], [place] - [facility] 13:55:01 Problem Notes None recorded. Procedures Surgical History Date Name Laterality Status Provider Name and Address Organization Details Recorded Time 02/19/20 24 [id number] completed LEELA RENO MD [address] [facility],[address], [address], [facility] - [facility] 02/19/2024 13:54:20 left mastoidectomy completed LEELA RENO MD [address] [facility],[address], [address], [facility] 02/19/2024 13:29:23 Imaging Results Imaging Date Name Status LastModified by Organiz ation Details LastModified Time 03/04/2024 CT, chest, w/ contrast completed [place] [address], [address], 03/08/2024 08:35:17 03/04/2024 CT, neck, soft tissue, w/ contrast completed [place] [facility] [address], [address], 03/08/2024 08:35:17 03/04/2024 CT, neck, soft tissue, w/ contrast completed [place] [facility] [address], [address], 03/08/2024 08:35:18 03/04/2024 CT, chest, w/ contrast completed [place] [facility] [address], [address], 03/08/2024 08:35:18 Procedure Notes None recorded. Medical Equipment None Reported. Medications Name Sig Start Date Stop Date Status Note LastModified by Organization Details LastModified Time cetirizine 10 mg tablet TAKE 1 TABLET BY MOUTH DAILY NEEDED FOR ALLERGY SYMPTOMS active Not Available Not Available No t Available dextroamphe tamine-amph etamine 10 mg tablet TAKE 1 TABLET BY MOUTH TWICE DAILY 4 TO 6 HOURS APART active Not Available Not Available No t Available olanzapine 5 mg tablet TAKE 1 TABLET BY MOUTH AT BEDTIME active Not Available Not Available No t Available divalproex ER 500 mg tablet,exte nded release 24 hr TAKE 3 TABLETS BY MOUTH AT BEDTIME active Not Available Not Available No t Available ibuprofen 200 mg tablet Take 1 tablet every 6 hours by oral route. active Not Available Not Available No t Available ipratropium bromide 21 mcg (0.03 %) nasal spray USE 2 SPRAYS INTRANASA LLY THREE TIMES DAILY active Not Available Not Available No t Available bupropion HCl XL 300 mg 24 hr tablet, extended release TAKE 1 TABLET BY MOUTH EVERY MORNING 02/18 completed Not Available Not Available Not Available bupropion HCl XL 150 mg 24 hr tablet, extended release TAKE 1 TABLET BY MOUTH EVERY MORNING. DO NOT TAKE AFTER 2 PM active Not Available Not Available No t Available B Complex Plus Vitamin C active Not Available Not Available No t Available biotin active Not Available Not Availa ble Not Available Calcium 600 + D(3) active Not Available Not Available Not Available One-A-Day Men's Multivitami n active Not Available Not Available Not Available Vitals Date Recorded Body height Body mass index (BMI) Body weight Provider Name and Address Organization Details Last Updated DateTime 02/19/2024 177.8 cm 25.1 kg/m2 21806.66 g Glenis Benz [place] - [facility] 02/19/2024 13:16:07 Social History Question Answer Notes LastModified by Organizat ion Details LastModified Time Tobacco Smoking Status Former Smoker LEELA RENO MD [address] [place] [address], [address], [place] - [facility] 02/19/2024 13:32:06 What Is Your Level Of Alcohol Consumption? Occasional Information not available 02/19/2024 How Many Times Per Week Do You Consume Alcohol? 3-4 Times Per Week Information not available 02/19/2024 How Many Alcoholic Drinks Do You Consume Per Day On Average? 6 Information not available 02/19/2024 When Did You Quit Smoking? 16+yearsalena sanford Information not available 02/19/2024 Sex: Unknown Functional Status None recorded. Mental Status None recorded. Family History Nothing Reported. Medical History No medical history recorded. Past Encounters Encounter ID Performer Location Encounter Start Date Encounter Closed Date Diagnosis/Indication Diagnosis SNOMED-CT Code Diagnosis ICD10 Code Diagnosis Note [id number] LEELA RAMOS MD [facility] [address] [place] [address] 02/19/2024 12:52:19 02/19/2024 14:06:32 Chronic rhinitis 70419675 J31.0 Paralysis of left vocal cord 262244488 J38.01 Pre-surgery testing 1104 17625 Z01.812 Health Concerns Section Related Observation LastModified by Organization Detai ls LastModified Time None Recorded Concern Status LastModified by Organization Details LastModified Time None Recorded Advance Directives Directive None Recorded Payers Encounter Date Sequence Insurance Name Policy Number Policy Hou Covered Member ID Hou Member ID Guarantor Name 02/19/2024 1 [employer] (MEDICARE REPLACEMENT PPO) [id number] A Jon Cheung [id number] Jon Cheung Notes Date Note Type Note Provider Name and Address Organization Details Recorded Time 02/19/2024 text/html Hx of chronic ea r disease with 2 procedures. Last 1971. Patient has a sensation of mucus or fluid draining down from his left eustachian tube into his throat causing postnasal drip, frequent throat clearing and change in voice. This has been present for several months. [place] sx worse with INS. Feels cetirizine can be helpful. Some time he has difficulty with food going down the wrong wayNo glaucomaSx fluctuateCOVID 19 x 2 occasions last episode 2 months ago. These sx began before COVID. He is on adderal for brain fog which is helping LEELA RENO MD [address] [place] [address], [phone], [facility] - [facility] 02/19/2024 14:00:43
--- OUTSIDE RECORDS SUMMARY | 2024-07-01 11:42 | XMS_ITS | Encounter Summary ---
Author Organization [facility] Address [address] [place] [address] Care Team Providers Care Home Office Representative Name Role Phone Saige Medeiros MD Primary Care Provider Colt Skelton MD Primary Care Provider Encounter Details Date Type Department Care Team Description 05/09/2018 Orders Only Medical Records [address] [place] [id number] Steve Marquez PA-C Social History Tobacco Use [...] on file documented as of this encounter Procedures Procedure Name Priority Date/Time Associated Diagnosis Comments OUTSIDE SLEEP STUDY Routine 05/07/2018 documented in this encounter Results * OUTSIDE SLEEP STUDY (05/07/2018) Steve Marquez PA-C PULMONOLOGY documented in this encounter Visit Diagnoses Not on filedocumented in this encounter Care Teams Home Office Representative Relationship Specialty Start Date End Date Saige Medeiros MD PCP - General 06/16/1991 08/07/23 Colt Graham MD [address] [place] [address] PCP - General Internal Medicine 08/08/23 documented as of this encounter
--- OUTSIDE RECORDS SUMMARY | 2024-07-01 11:42 | XMS_ITS | Encounter Summary ---
Author Organization [facility] Address [address] [place] [address] Care Team Providers Care Supervisory Training Specialist Name Role Phone Saige Medeiros MD Primary Care Provider Colt Skelton MD Primary Care Provider Encounter Details Date Type Department Care Team Description 02/20/2014 Transfer Records Medical Records [address] [place] [id number] Abstract, Provider Social History Tobacco Use Types Packs/Day Years Used Date Smoking Tobacco: Some Days Cigarettes 1 Cigars Smokeless Tobacco: Never Comments:one pack per week, started at age [...] on filedocumented in this encounter Care Teams Supervisory Training Specialist Relationship Specialty Start Date End Date Saige Medeiros MD PCP - General 06/16/1991 08/07/23 Colt Graham MD [address] [place] [address] PCP - General Internal Medicine 08/08/23 documented as of this encounter
--- OUTSIDE RECORDS SUMMARY | 2024-07-01 11:42 | XMS_ITS | Encounter Summary ---
Author Organization [facility] Address [address] [place] [address] Care Team Providers Care Choreography Director Name Role Phone Saige Medeiros MD Primary Care Provider Colt Skelton MD Primary Care Provider Encounter Details Date Type Department Care Team Description 11/03/2015 Email Operations Manager Report Medical Records [address] [place] [address] Abstract, Provider Social History Tobacco Use Types [...] on filedocumented in this encounter Care Teams Choreography Director Relationship Specialty Start Date End Date Saige Medeiros MD PCP - General 06/16/1991 08/07/23 Colt Graham MD [address] [place] [address] PCP - General Internal Medicine 08/08/23 documented as of this encounter
--- OUTSIDE RECORDS SUMMARY | 2024-07-01 11:42 | XMS_ITS | Encounter Summary ---
Author Organization [facility] Address [address] [place] [address] Care Team Providers Care Lining Machine Operator Name Role Phone Saige Medeiros MD Primary Care Provider Colt Skelton MD Primary Care Provider Encounter Details Date Type Department Care Team Description 11/26/2015 Night Triage Doc Medical Records [address] [place] [address] Abstract, Provider Social History Tobacco Use Types [...] on filedocumented in this encounter Care Teams Lining Machine Operator Relationship Specialty Start Date End Date Saige Medeiros MD PCP - General 06/16/1991 08/07/23 Colt Graham MD [address] [place] [address] PCP - General Internal Medicine 08/08/23 documented as of this encounter
--- OUTSIDE RECORDS SUMMARY | 2024-07-01 11:43 | XMS_ITS | Encounter Summary ---
Author Organization [facility] Address [address] [place] [address] Care Team Providers Care Network Admin Name Role Phone Saige Medeiros MD Primary Care Provider Colt Skelton MD Primary Care Provider Encounter Details Date Type Department Care Team Description 09/12/2019 Pt. Non Urgent Medical Question Adult Medicine [address] [address] Saige Medeiros MD Social History Tobacco Use [...] on file documented as of this encounter Progress Notes * Leslie Steele M.A. - 09/12/2019 8:27 AM EDTFrom: Jon Cheung To: Saige Medeiros MD Sent: 09/12/2019 7:43 AM EDT Subject: Urologist Hi Dr. Medeiros, I would like talk with you about the Urologist. I had a consultation appointment, a bladder scope is scheduled for next week and I would like to talk with you about it. When you have a chance please call me @ [phone]. Thanks, Zak Cheung documented in this encounter Plan of Treatment Not on file documented as of this encounter Visit Diagnoses Not on filedocumented in this encounter Care Teams Network Admin Relationship Specialty Start Date End Date Saige Medeiros MD PCP - General 06/16/1991 08/07/23 Colt Graham MD [address] [place] [address] PCP - General Internal Medicine 08/08/23 documented as of this encounter
== END 2024-07-01 11:02 | disposition home or self-care (01) ==
LOC: HO.HMCFM 10:02
PROVIDERS: PCP Internal Medicine; Visit Provider Internal Medicine
DX: F31.9 Bipolar disorder, unspecified (principal); M54.40 Lumbago with sciatica, unspecified side; G89.29 Other chronic pain; R79.89 Other specified abnormal findings of blood chemistry

== ENCOUNTER 2024-09-16 09:19 | Outpatient (AMB) | payer OTHER, SELFPAY ==
--- NOTE | 2024-09-16 09:25 | A.OFFPC_ITS ---
Vital Signs 09/16/24 09:33 Height 5 ft 10 in Weight 179 lb 4 oz BMI 25.7 BP 108/66 Blood Pressure Location Lt brachial Position Sitting Respiration 14 Pulse 69 Pulse Source Pulse Oximeter Pulse Oximetry (%) 99 Oxygen Delivery Method Room Air Intake Visit Reasons: Ongoing hoarseness Intake Note: Ongoing hoarseness. 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: No Allergies No Known Allergies Allergy (Verified 09/16/24 09:28) Tobacco use date assessed: 09/16/24 Fall risk assessment: No Falls in past year Last assessed Fall Risk: 09/16/24 Dental Screening Dental Screen Date: 09/16/24 Did you have a dental visit in the last 12 months?: Yes Did you have a dental problem in the last 6 months where you did not have access to dental care?: No Was dental information given to patient?: Patient has dentist HPI HPI Comments History of Present Illness Details Patient is a 69-year-old male with history of bipolar disorder, brain fog/attention deficit, foot pain, osteopenia, low back painpresenting for follow up Continues to have hoarseness. Patient saw ENT in the past year, he tells me there was evidence of vocal cord dysfunction. He has not followed up Neuropsych: Brain fog has lifted. 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 Referred to memory clinic in Dec. following with psych on [place]. He is doing well on buproprion, adderall and olanzapine. Had significant bradycardia with lithium. MSK: low back strain at times. Foot pain with interval improvement. Sees podiatry. Has osteopenia. Heme/Onc: Follows with [facility]. Recent labs with mild lymphocytosis, decreased platelets-repeat including citrate platelets still abnormal. Smear with decreased, large platelets otherwise reassuring. continues to suffer from some fatigue 50 year smoking history intereseted in L DCT referral Patient is due for colonoscopy in 2025 Td today. ROS see HPI PHYSICAL EXAM: GENERAL: Alert and oriented x 3. NAD EYES: EOMI. Anicteric. HENT: Moist mucous membranes. No scleral icterus. No cervical lymphadenopathy. LUNGS: Clear to auscultation bilaterally. CARDIOVASCULAR: Regular rate and rhythm. No murmur. No JVD. ABDOMEN: Soft, non-tender +bs EXTREMITIES: No edema. Non-tender. SKIN: No rashes or lesions. Warm. NEUROLOGIC: No focal neurological deficits. CN II-XII grossly intact PSYCHIATRIC: Cooperative. Appropriate mood and affect [facility] Medical History Hernia Bradycardia Surgical History H/O endoscopy No pertinent past surgical history Social History Household Members: None Housing: Apartment Alcohol intake: current Patient Tobacco Use Status: Former Tobacco user (quit in 2023) Tobacco use type: Cigar (Occasionally about 2 a day. ) Years Smoked: 50 on and off e-Cigarette/Vaping Use: Never Used Second Hand Smoke Exposure: No service: No Current occupational status: retired Cognitive needs: No Hearing needs: No Vision needs: No Questionnaire Thrive Questionnaire Date Thrive assessed: 05/06/24 I am a: Patient What is your living situation today?: I have a steady place to live Within the past 12 months, did the food you bought not last and you didn't have the money to get more?: Never true Within the past 12 months, did you worry whether your food would run out before you got money to buy more?: Never true Do you have trouble paying for medicines?: No Do you have trouble getting transportation to medical appointments?: No Do you have trouble paying your heating and electricity bill?: No Do you have trouble taking care of your child, family member or friend?: No Do you have trouble with day-to-day activities such as bathing, preparing meals, shopping, managing finances, etc.?: No Are you currently unemployed and looking for a job?: No Are you interested in more education?: No Please select the resources that you would like help with: None Currently or been in a relationship where the following occur: No concerns reported THRIVE Score: 0 AUDIT C Alcohol Use Questionnaire (AUDIT-C) 1. How often do you have a drink containing alcohol?: Monthly or less 2. How many drinks containing alcohol do you have on a typical day when you are drinking?: 1 or 2 3. How often do you have six or more drinks on one occasion?: Never Total Score: 1 MIKY-7 AMB Questionnaire MIKY-7 Date MIKY - 7 assessed: 03/28/24 Source: Developed by Drs. Jon Webb, Blanquita Davidson, Grayson Medina and colleagues, with an educational eligio from [employer] Physical exam (Primary Care) Vital Signs: Last Vital Signs Pulse 69 09/16/24 09:33 Resp 14 09/16/24 09:33 BP 108/66 09/16/24 09:33 Pulse Ox 99 09/16/24 09:33 Oxygen Delivery Method Room Air 09/16/24 09:33 BMI result Body Mass Index 25.7 Tobacco/Smoking Status: Tobacco use Status Tobacco use date assessed 09/16/24 09/16/24 09:30 Patient Tobacco Use Status Former Tobacco user (quit in 09/16/24 09:34 2023) Tobacco use type Cigar (Occasionally about 2 09/16/24 09:34 a day. ) e-Cigarette/Vaping Use Never Used 09/16/24 09:34 Thrive Assessment: Date of Thrive Assessment Date Thrive assessed 05/06/24 09/16/24 09:27 Currently or been in a relationship where the following occur: No concerns reported Immunizations Boostrix Tdap 2.5 Lf unit-8 mcg-5 Lf/0.5 mL intramuscular syringe Performing Provider: Noemí Lee MD Performing Location: [facility] Administered by: Concepcion Costa MA on 09/16/24 09:58 Dose Route Admin Location Dispensed Lot Number Expiration Date [facility] Milling Machine Tender 0.5 mL IM Left Deltoid 0.5 mL [id number] 12/16/26 35942-221-71 [employer] VIS Given Date VIS Provided VIS Publication Date 09/16/24 Single Vaccine 20 Eligibility Eligibility Date Funding Source Not [facility] Eligible 09/16/24 Private Coding Level of Care Code Est Pt Level 4 (64066) Diagnoses Vocal cord dysfunction J38.3 Bipolar depression F31.9 Chronic low back pain with sciatica, sciatica laterality unspecified, unspecified back pain laterality M54.40; G89.29 Chronicity: chronic Back pain laterality: unspecified Sciatica presence: with sciatica Sciatica laterality: sciatica laterality unspecified Abnormal CBC R79.89 Assessment & Plan Assessment & Plan (1) Vocal cord dysfunction: Code(s): J38.3 - Other diseases of vocal cords Category: Medical (2) Bipolar depression: Code(s): F31.9 - Bipolar disorder, unspecified Category: Medical (3) Low back pain: Code(s): M54.50 - Low back pain, unspecified Category: Medical Qualifiers: Chronicity: chronic Back pain laterality: unspecified Sciatica presence: with sciatica Sciatica laterality: sciatica laterality unspecified Qualified Code(s): M54.40 - Lumbago with sciatica, unspecified side; G89.29 - Other chronic pain (4) Abnormal CBC: Code(s): R79.89 - Other specified abnormal findings of blood chemistry Category: Medical Plan Hoarseness-advised to call ENT for follow up. Trial xyzal History of tobacco use-referral lung cancer screening Bipolar depression is stable on current medications Orders: Referrals Lung Cancer Screening Referral J38.3 - Other diseases of vocal cords Ear/Nose/Throat Referral J38.3 - Other diseases of vocal cords Medications: New levocetirizine (Xyzal) 5 mg PO DAILY PRN 90 tabs 3RF allergy symptoms
[2024-09-16 09:33] VITALS: BP 108/66; PULSE 69; RESP 14; O2SAT 99; BMI 25.7
--- OUTSIDE RECORDS SUMMARY | 2024-09-16 09:54 | XMS_ITS | Clinical Summary ---
Author Organization [facility] Address [address] [place] [address] Care Team Providers Care Nuclear Equipment Operator Name Role Phone Unavailable Primary Care Provider [...] sprayIndication s:Viral URI with cough Place 1 [place] into the nostril(s) 2 (two) times daily [...] ep isode manic w/o psychotic features, severe ([facility]) 01/25/2022 Obstructive sleep apnea 05/08/2018 Overview (04/29/2022): [facility] Home Polysomnogram: Date 05/07/2018; AHI 23, [...] lower GI bleeding 04/29/2013 Bipolar 1 disorder ([facility]) 04/10/2005 Overview (04/29/2022): Re:Nephrology consult,. 05/2019: All attempts exhausted to reach patient to book appt. KMS. Immunizations Immunization Administration Dates Next Due Flu, Adjuvant, 65y+ [...] 02/15/2022 012, 04/10/2005 Diabetes Screening 04/27/2023 04/27/2022, 1 , 01/27/2022, Additional history exists Lipid Screening 04/27/2023 04/27/2022, 01/27/2022 Falls Prevention 05/31/2023 05/31/2022 Medicare Annual Wellness Visit 10/19/2023 10/18/2022 Hypertension Screening (#1) 12/11/2023 [id number] ( season) 2023 Imm-Influenza (#1) 2023 04/03/2019, 0 05/07/2018, 04/04/2017, Additional history exists Alcohol and Drug Screen 04/23/2024 05/31/19, 05/31/2022, 04/10/2022 Depression Annual Screen 04/23/2024 12/11/2022 Procedures Procedure Name Priority Date/Time Associated Diagnosis Comments COMPREHENSIVE METABOLIC PANEL Routine 04/27/2022 10:07 AM EST Bradycardia, sinus LIPID PANEL Routine 04/27/2022 10:07 AM EST Bradycardia, sinus Hypertriglyceridem ia from Last 3 Months or Most Recently Relevant to Health Maintenance Results * (ABNORMAL) LIPID PANEL (04/27/2022 10:07 AM EST) CHOLESTEROL, TOTAL 178 <200 mg/dL [facility] HDL CHOLESTEROL 55 > OR = 40 mg/dL [facility] TRIGLYCERIDES 82 <150 mg/dL [facility] LDL-CHOLESTEROL 106(H) 99 mg/dL (calc) [facility] Comment: Reference range: <100 Desirable range <100 mg/dL for primary prevention; ?? <70 mg/dL for patients with CHD or diabetic patients with > or = 2 CHD risk factors. LDL-C is now calculated using the Gali calculation, which is a validated novel method providing better accuracy than the Friedewald equation in the estimation of LDL-C. Neo RAMOS et al. STEFAN. 2013;310(19): 4123-6568 (http://education.Cytoo/faq/CFO587) CHOL/HDLC RATIO 3.2 <5.0 (calc) [facility] NON-HDL CHOLESTEROL 123 <130 mg/dL (calc) [facility] Comment: For patients with diabetes plus 1 major ASCVD risk factor, treating to a non-HDL-C goal of <100 mg/dL (LDL-C of <70 mg/dL) is considered a therapeutic option. Blood Blood / Unknown 04/27/2022 1 0:07 AM EST 04/27/2022 10:08 AM EST Narrative [facility] - 04/27/2022 8:36 PM EST FASTING:YES us Jinny Jeff MD LAB - BLOOD DRAW Final Result [facility] [address] [address], [employer] [employer] [address] ([address]) [place] [address] * (ABNORMAL) COMPREHENSIVE METABOLIC PANEL (04/27/2022 10:07 AM EST) GLUCOSE 83 65 - 99 mg/dL [facility] Comment: ?Fasting reference interval UREA NITROGEN (BUN) 22 7 - 25 mg/dL [facility] CREATININE (blood) 1.18 0.70 - 1.35 mg/dL [facility] EGFR 68 > OR = 60 mL/min/1 .73m2 [facility] Comment: The eGFR is based on the CKD-EPI 2020 equation. To calculate the new eGFR from a previous Creatinine or Cystatin C result, go to https://www.kidney.org/professionals/ kdoqi/gfr%5Fcalculator BUN/CREATININE RATIO NOT APPLICABLE 6 - 22 [facility] SODIUM 142 135 - 146 mmol/L [facility] POTASSIUM 4.8 3.5 - 5.3 mmol/L [facility] CHLORIDE 107 98 - 110 mmol/L [facility] CARBON DIOXIDE 27 20 - 32 mmol/L [facility] CALCIUM 9.4 8.6 - 10.3 mg/dL [facility] PROTEIN, TOTAL 6.6 6.1 - 8.1 g/dL [facility] ALBUMIN 4.1 3.6 - 5.1 g/dL [facility] GLOBULIN 2.5 1.9 - 3.7 g/dL (calc) [facility] ALBUMIN/GLOBUL IN RATIO 1.6 1.0 - 2.5 (calc) [facility] BILIRUBIN, TOTAL 0.6 0.2 - 1.2 mg/dL [facility] ALKALINE PHOSPHATASE 58 35 - 144 U/L [facility] AST 48(H) 10 - 35 U/L [facility] ALT 81(H) 9 - 46 U/L [facility] Blood Blood / Unknown 04/27/2022 1 0:07 AM EST 04/27/2022 10:08 AM EST Narrative [facility] - 04/27/2022 8:36 PM EST FASTING:YES Jinny Jeff MD LAB - BLOOD DRAW Final Result [facility] [address] [address], [facility] [address] [place] [address] from Last 3 Months or Most Recently Relevant to Health Maintenance Insurance [place] - [place] Advance Directives Documents on File Type Date Recorded 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
== END 2024-09-16 11:59 | disposition home or self-care (01) ==
LOC: HO.HMCFM 09:20
PROVIDERS: PCP Internal Medicine; Visit Provider Internal Medicine
DX: J38.3 Other diseases of vocal cords (principal); F31.9 Bipolar disorder, unspecified; M54.40 Lumbago with sciatica, unspecified side; G89.29 Other chronic pain; R79.89 Other specified abnormal findings of blood chemistry; Z23 Encounter for immunization

== ENCOUNTER → 2024-09-16 09:19 | Outpatient (BNVA) | payer OTHER, SELFPAY | PROVIDERS: PCP Internal Medicine; Visit Provider Internal Medicine | DX: J38.3 Other diseases of vocal cords (principal); F31.9 Bipolar disorder, unspecified; M54.40 Lumbago with sciatica, unspecified side; R79.89 Other specified abnormal findings of blood chemistry; G89.29 Other chronic pain; R41.3 Other amnesia; F17.290 Nicotine dependence, other tobacco product, uncomplicated; Z23 Encounter for immunization | CPT/HCPCS: 90471; 90715 ==

== ENCOUNTER 2024-11-14 09:08 | Outpatient (AMB) | payer OTHER, SELFPAY ==
--- OUTSIDE RECORDS SUMMARY | 2023-11-28 05:45 | XMS_ITS ---
Author Organization [facility] Address [address] [address] Care Team Providers Care Roof Fixer Name Role Phone Noemí Lee Primary Care Provider UnavailBERNICE Greenwood Unavailable [phone] Allergies No Known Allergies REASON FOR VISIT orthotics Medications Medication SIG (Take, Route, Frequency, Duration) Notes Start Date End Date Status ZyPREXA Active Wellbutrin Active Encounters Encounter Location Date Provider Diagnosis [facility] [address] [address] 11/28/2023 BERNICE DUMONT Plan Of Treatment Next Appt Details Provider Name:BERNICE DUMONT, 02/25/2025 08:00:00 AM, [address], [address], Progress Notes * Jon STEPHENSDOB:1954 (69 yo M)Acc No.[id number]:11/28/2023 Consult note Patient: Jon JORGE Provider: Briana Dumont DPM :1955 A ge:68 Y S ex:Male Date:11/28/2023 Phone: Address:[address], [phone] Pcp:Noemí Lee Subjective: * Chief Complaints: * [...] Electronic signature of KIMO DUMONT D.P.M on 11/14/2024 at 09:26 AM EDT Sign off status: Pending * Provider: Briana Dumont DPM Date: 11/28/2023 Generated for Sam macias/Jesús/Poncho on: 11/14/2024 09:26 AM EDT
--- NOTE | 2024-11-14 07:46 | A.OFFVIS_ITS ---
Intake Visit Reasons: Former Smoker Allergies No Known Allergies Allergy (Verified 09/16/24 09:28) HPI HPI Former Smoker: Details: Initial visit for this 69yo former smoker with a 25PYH. Patient started smoking at age 14 for 54 years at 1/2ppd. Periods of higher smoking (1ppd) then transitions to cigars. He quit 1 year ago 10/2023. . Denies marijuana use. Denies second hand smoke exposure. Notes exposure to asbestos in old house. . Denies known family history of lung cancer. Denies personal history of cancers. Denies chest CT in last year. . Denies recent travel outside the [place]. Denies recent respiratory illness or recent hospitalization for respiratory issues. Reports testing positive for COVID x2 Admits receiving COVID Vaccine x 3. . Denies fever, chills, new/worsening cough, hemoptysis, hoarseness or dysphagia. Denies significant chest pain, significant dyspnea or unintentional weight loss. Patient Lung Cancer Screening Questionnaire reviewed with patient by provider. . Shared Decision Making Completed. Patient meets criteria. Discussed in detail with patient, the risk vs benefit of LDCT screening. Patient consents to proceed with scan. Discussed and encouraged continued smoking cessation. [facility] Medical History (Updated 11/14/24 @ 09:27 by Dee Dee Bell PA-C) Lumbar spondylosis Bipolar depression Osteopenia Personal history of nicotine dependence Hernia Bradycardia Surgical History (Updated 11/14/24 @ 09:30 by Dee Dee Bell PA-C) History of left mastoidectomy History of right inguinal hernia repair H/O endoscopy Social History (Updated 11/14/24 @ 09:29 by Dee Dee Bell PA-C) Household Members: None Housing: Apartment Alcohol intake: current Patient Tobacco Use Status: Former Tobacco user (quit in 2023) Tobacco use type: Cigar (Occasionally about 2 a day. ) Years Smoked: (onset 14yo, 1/2ppd x 54yrs, 25pyh, quit 10/2023) e-Cigarette/Vaping Use: Never Used Second Hand Smoke Exposure: No service: No Current occupational status: retired Cognitive needs: No Hearing needs: No Vision needs: No Assessment & Plan Assessment & Plan (1) Personal history of nicotine dependence: Comment: (onset 14yo, 1/2ppd x 54yrs, 25PYH - quit 10/2023) Code(s): Z87.891 - Personal history of nicotine dependence Category: Medical Plan: - SDM visit completed today in office. - Patient meets criteria for LDCT for lung cancer screening purposes and is asymptomatic. - Smoking cessation counseling offered. Patients can always call [phone]. - Will arrange for a LDCT scan of the chest for screening purposes at [facility]. - Risks, benefits, and alternatives were discussed in detail and the patient agrees to proceed. - Risks discussed include but are not limited to: radiation exposure, anxiety during testing and while awaiting results, false negatives, false positives and possibility of additional intervention such as further imaging or surgical procedures for benign disease. - Benefits are obviously detection of lung cancer at an early stage which can lead to improved outcomes. - Discussed the importance of screening program compliance with adherence to yearly LDCT scan as scheduled - or sooner interval scans for personalized screening regimen. - Discussed follow up plan. Our office will send a letter discussing results and if needed set up phone call and office visit based on CT findings. - Patient educated on results categorization and the management decisions for suspicious findings potentially found on the screening LDCT scan. Any patient with a Lung RADS score of 3 or 4 will be reviewed by a multidisciplinary team at [facility] to form a plan of action in regards to scan findings. - If further work up is warranted for a suspicious lung finding this will be followed by the Lung Cancer Screening program in conjunction with the Thoracic Surgery Department at [facility]. - A copy of the office note and LDCT will be sent to the patient's PCP - as well as documentation on any associated further plans of care. - Incidental findings on LDCT are the PCP's responsibility. These findings are indicated with an S finding on the LDCT Assessment. A note discussing the findings will be sent to the PCP who is then responsible for further management. - All questions answered.? Plan Of Note for PCP: The USPTF recommends all men age 67-75 who have ever smoked have a one-time Abdominal US to screen for AAA. Discussed with patient and recommend he speak with PCP to have if not done prior. Coding Level of Care Code Lung Cancer Screening [id number] Diagnoses Personal history of nicotine dependence Z87.891
--- OUTSIDE RECORDS SUMMARY | 2024-11-14 09:26 | XMS_ITS | Clinical Summary ---
Author Organization [facility] Address [address] [place] [address] Care Team Providers Care Telecommunications Engineer Name Role Phone Unavailable Primary Care Provider [...] sprayIndication s:Viral URI with cough Place 1 [place] into the nostril(s) 2 (two) times daily [...] ep isode manic w/o psychotic features, severe ([facility]) 01/25/2022 Obstructive sleep apnea 05/08/2018 Overview (04/29/2022): [facility] Home Polysomnogram: Date 05/07/2018; AHI 23, Unclassified [...] lower GI bleeding 04/29/2013 Bipolar 1 disorder ([facility]) 04/10/2005 Overview (04/29/2022): Re:Nephrology consult,. 05/2019: All attempts exhausted to reach patient to book appt. KMS. Immunizations Immunization Administration Dates Next Due Flu, Adjuvant, 65y+ (Fluad) 04/04/2017 Flu, Cell Culture based, Pre servative Free, 6m+, Flucelvax 05/07/2018 INFLUENZA VIRUS VACCINE P&EM IC FORMULATION 05/17/2009 INFLUENZA, SEASONAL, INJECTABLE 04/03/20 19,01/10/2016,02/12/2014,2011,01/02/2009 TDAP 02/16/2012 Td (adult),Lf unspecified,preservative free 04/10/2005 Social History Tobacco Use Types [...] 64 12/11/2022 8:09 AM EDT Temperature 36.5 C (97.7 F) 12/11/2022 8:09 AM EDT Respiratory Rate - - Oxygen Saturation 98% [...] Fecal DNA 2002 Flexible Sigmoidoscopy 2002 Imm-Pneumococcal 50+ (1 of 1 - PCV) 2007 Imm-Zoster, Recombinant (1 of 2) 2007 Abdominal Aortic Aneurysm Screening 2022 Imm-DTaP/Tdap/Td (2 - Td or Tdap) 02/15/2022 012, 04/10/2005 Diabetes Screening 04/27/2023 04/27/2022, 1 , 01/27/2022, Additional history exists Lipid Screening 04/27/2023 04/27/2022, 01/27/2022 Falls Prevention 05/31/2023 05/31/2022 Medicare Annual Wellness Visit 10/19/2023 10/18/2022 Hypertension Screening (#1) 12/11/2023 [id number] () 12/23/2023 Alcohol and Drug Screen 04/23/2024 05/31/19, 05/31/2022, 04/10/2022 Depression Annual Screen 04/23/2024 12/11/2022 Imm-Influenza (#1) 2024 04/03/2019, 0 05/07/2018, 04/04/2017, Additional history exists Procedures Procedure Name Priority Date/Time Associated Diagnosis Comments COMPREHENSIVE METABOLIC PANEL Routine 04/27/2022 10:07 AM EST Bradycardia, sinus LIPID PANEL Routine 04/27/2022 10:07 AM EST Bradycardia, sinus Hypertriglyceridem ia from Last 3 Months or Most Recently Relevant to Health Maintenance Results * (ABNORMAL) LIPID PANEL (04/27/2022 10:07 AM EST) CHOLESTEROL, TOTAL 178 <200 mg/dL [facility] HDL CHOLESTEROL 55 > OR = 40 mg/dL [facility] TRIGLYCERIDES 82 <150 mg/dL [facility] LDL-CHOLESTEROL 106(H) 99 mg/dL (calc) [facility] Comment: Reference range: <100 Desirable range <100 mg/dL for primary prevention; <70 mg/dL for patients with CHD or diabetic patients with > or = 2 CHD risk factors. LDL-C is now calculated using the Gali calculation, which is a validated novel method providing better accuracy than the Friedewald equation in the estimation of LDL-C. Neo SS et al. STEFAN. 2013;310(19): 8370-5797 (http://education.CarbonFlow/faq/COK242) CHOL/HDLC RATIO 3.2 <5.0 (calc) [facility] NON-HDL CHOLESTEROL 123 <130 mg/dL (calc) [facility] Comment: For patients with diabetes plus 1 major ASCVD risk factor, treating to a non-HDL-C goal of <100 mg/dL (LDL-C of <70 mg/dL) is considered a therapeutic option. Blood Blood / Unknown 04/27/2022 1 0:07 AM EST 04/27/2022 10:08 AM EST Narrative [facility] - 04/27/2022 8:36 PM EST FASTING:YES us Jinny Jeff MD LAB - BLOOD DRAW Final Result [facility] [address] [address], [facility] [address] ([address]) [place] [address] * (ABNORMAL) COMPREHENSIVE METABOLIC PANEL (04/27/2022 10:07 AM EST) GLUCOSE 83 65 - 99 mg/dL [facility] Comment: Fasting reference interval UREA NITROGEN (BUN) 22 7 - 25 mg/dL [facility] CREATININE (blood) 1.18 0.70 - 1.35 mg/dL [facility] EGFR 68 > OR = 60 mL/min/1 .73m2 [facility] Comment: The eGFR is based on the CKD-EPI 2020 equation. To calculate the new eGFR from a previous Creatinine or Cystatin C result, go to https://www.kidney.org/professionals/ kdoqi/gfr%5Fcalculator BUN/CREATININE RATIO NOT APPLICABLE 6 - 22 [facility] SODIUM 142 135 - 146 mmol/L [facility] [place] [facility] POTASSIUM 4.8 3.5 - 5.3 mmol/L [facility] [place] [facility] CHLORIDE 107 98 - 110 mmol/L [facility] CARBON DIOXIDE 27 20 - 32 mmol/L [facility] CALCIUM 9.4 8.6 - 10.3 mg/dL [facility] PROTEIN, TOTAL 6.6 6.1 - 8.1 g/dL [facility] [place] [facility] ALBUMIN 4.1 3.6 - 5.1 g/dL [facility] [place] [facility] GLOBULIN 2.5 1.9 - 3.7 g/dL (calc) [facility] ALBUMIN/GLOBUL IN RATIO 1.6 1.0 - 2.5 (calc) [facility] [place] [facility] BILIRUBIN, TOTAL 0.6 0.2 - 1.2 mg/dL [facility] ALKALINE PHOSPHATASE 58 35 - 144 U/L [facility] AST 48(H) 10 - 35 U/L [facility] ALT 81(H) 9 - 46 U/L [facility] Blood Blood / Unknown 04/27/2022 1 0:07 AM EST 04/27/2022 10:08 AM EST Narrative [facility] - 04/27/2022 8:36 PM EST FASTING:YES us Jinny Jeff MD LAB - BLOOD DRAW Final Result [facility] [address] [address], [employer] [address] ([facility] [place] [address] from Last 3 Months or Most Recently Relevant to Health Maintenance Insurance [place] - [place] Advance Directives Documents on File Type Date Recorded Patient Service Delivery Management Consultant Expl anation Directives to Physicians 01/03/2023 12:00 AM [facility] Care Teams Telecommunications Engineer Relationship Specialty Start Date End Date emily aceves Therapist 04/27/22
--- OUTSIDE RECORDS SUMMARY | 2024-11-14 09:26 | XMS_ITS | Patient Health Record ---
Author Organization [facility] Address [address] [place] [address] Care Team Providers Care Irrigation Laborer Name Role Phone Ronald Hernandez Primary Care Provider Jesus Bradshaw Unavailable [phone] Reason For Referral No Information Medications Medication SIG (Take, Route, Frequency, Duration) Notes Start Date End Date Status Advil Active Tylenol Active LaMICtal Active [place] Active Suprep Bowel Prep Kit 17.5-3.13-1.6 GM/177ML 17.5-3.13-1.6 GM/177ML Orally per physician prep sheet for 2 days 08/30/2020 Active Social History Tobacco Use: Social History Observation Description Date Details (start date - stop date) Current Smoker NA - NA Tobacco Use/Smoking Question Answer Notes Smoking Status current smoker Tobacco use other than smoking: Question Answer Notes Are you an other tobacco user? Yes C igars Section Notes: Intermittent cigar use. 7-10 drinks per week. Problems Problem Type SNOMED Code ICD Code Onset Dates Problem Status W/U Status Risk Notes Problem [id number] Personal history of colonic polyps (Z86.010) Active confirmed Patient has history of colon polyps. Last colonoscopy was around 2012, he is ago. Some polyps were seen and told to repeat in 5 years. We'll plan on doing repeat colonoscopy now. Problem Personal history of colon polyps (Z86.010) Active confirmed Plan Of Treatment No Information Insurance Providers Payer Name Payer Address Payer Phone Subscriber Number Group Number Insured Name Patient Relationship to Insured Coverage Start Date Coverage End Date [facility] [address] [place] [phone] [id number] [employer] Self - patient is the insured Medical (General) History Medical History History ICD Code Bipolar disorder Surgical History Surgery Date(Month/Year) Mastoid surgery with revision
--- OUTSIDE RECORDS SUMMARY | 2024-11-14 09:26 | XMS_ITS | Data Portability ---
Author Organization [place] - [facility], Allergy Address [address] [facility] [address] [place] [address] Care Team Providers Care Photo Cartographer Name Role Phone JHONY TRAN Primary Care Provider [phone] Assessment Encounter Date Assessment Date Assessment LastModified [...] the nerve. [email or web address] Not available 02/19/2024 13:57:09 11/06/2024 11/06/2024 1. Vocal Cord Paralysis with Idiopathic Neuropathy Continued observation and avoidance of behaviors that may exacerbate symptoms, such as throat clearing. Arrange referral for possible left vocal cord injection to enhance voice quality by improving closure. 2. 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 Current examination does not indicate active infection. Procedure Documentation: - laryngoscopy: Informed consent obtained. Visualization of vocal cords using nasal spray anesthesia revealed a left vocal cord not fully approximating the right. No growths or tumors were present. Findings discussed with the patient. [email or web address] Not available 11/06/2024 11:53:01 Plan of Treatment Reminders Order Date Submit Date Provider Last Modified By Organization Details Last Modified Time Details Appointments Establish ed 15 2024 04:00P M EUGENIA Chan MD Not available Not available Not available Lab bun/creat inine, ratio, serum 2023 [email or web address] [facility] (Centralized Electronic Ordering - All Locations), Patient Can Go To The Location Of Their Choice, [id number] 02/20/2024 06:23:40 Referral None recorded. Procedures None recorded. Surgeries None recorded. Imaging CT, chest, w/ contrast - with and without contrast. ..[facility] [place] [place], [address], [place], [address], 03/04/2024 11:34:52 CT, neck, soft tissue, w/ contrast [facility] 024 [email or web address] [facility] [place], [address], [address], [place], [address], 02/27/2024 13:28:35 Medication Orders ipratropi um bromide 21 mcg (0.03 %) nasal spray 2023 025 [place] [id number], [address] [place], [place], [id number], 11/06/2024 11:12:05 Patient TargetsNo targets recorded. Patient Instructions Encounter Date Encounter Id Patient Instructions Last Modified By Organization Details Last Modified Time 11/06/2024 [id number] Please note: Parts of this encounter note have been generated by AI based on audio conversation. Patient consent was required prior to utilizing this technology. Content review was required prior to finalizing the note. [email or web address] Not available 11/06/2024 11:49:31 Reason for Referral None Reported. Results Created Date Observation Date Name Description Value Unit Range Abnormal Flag Note LastModifiedBy Organization Detail LastModifiedTime 02/19/20 24 02/20/2024 BUN+C REAT BUN 24 mg/dL 8-27 normal Not Available [facility] ([facility]) [address] [facility], [place], [address], 02/20/2024 06:23:40 02/19/20 24 02/20/2024 BUN+C REAT creatinine 1.16 mg/dL 0.76-1 .27 normal Not Available [facility] ([facility]) [address] [facility], [place], [address], 02/20/2024 06:23:40 02/19/20 24 02/20/2024 BUN+C REAT eGFR 69 mL/mi n/1.7 3 >59 normal Not Available [facility] ([facility]) [address] [facility], [place], [address], 02/20/2024 06:23:40 02/19/20 24 02/20/2024 BUN+C REAT BUN/creatini ne ratio 21 10-24 normal Not Available [facility] ([facility]) [address] [facility], [place], [address], 02/20/2024 06:23:40 03/04/20 24 03/04/2024 CT, chest , w/ contr ast No observ ation record ed. [facility] [place] [address] [place] [address], [address], 03/08/2024 08:35:17 03/04/20 24 03/04/2024 CT, neck, soft tissu e, w/ contr ast No observ ation record ed. [facility] [place] [address], [address], 03/08/2024 08:35:17 03/06/20 24 03/04/2024 CT, neck, soft tissu e, w/ contr ast No observ ation record ed. [facility] [place] [address], [address], 03/08/2024 08:35:18 03/06/20 24 03/04/2024 CT, chest , w/ contr ast No observ ation record ed. [facility] [place] [address] [facility] [address], [place], [address], 03/08/2024 08:35:18 Result Notes None recorded. Problems Name Problem SNOMED Code Status Onset Date Resolution Date Notes Provider Name and Address Organization Details Recorded Time Chronic rhinitis 61514535 Active 024 LEELA COCHRAN MD [address] [facility], [place], [address], [place] - [facility] [place] 13:54:25 Paralysis of left vocal cord 647068673 Active 024 LEELA COCHRAN MD [address] [facility] [address], [place], [address], [place] - [facility] [place] 13:54:38 Localized enlarged lymph nodes 181522256 Active 024 LEELA COCHRAN MD [address] [facility] [address], [place], [address], [place] - [facility] [place] 13:55:01 Problem Notes None recorded. Procedures Surgical History Date Name Laterality Status Provider Name and Address Organization Details Recorded Time 11/07/19 25 FOL_LEFTVFP_JMS completed LEELA RENO MD [address] [place] [address],[address], [address], [place] - [facility] 11/06/2024 11:52:34 02/19/20 24 FOL_LEFTVFP_JMS completed LEELA RENO MD [address] [place] [address],[address], [address], [place] - [facility] 02/19/2024 13:54:20 left mastoidectomy completed LEELA RNEO MD [address] [place] [address],[address], [address], [place] - [facility] 02/19/2024 13:29:23 Imaging Results None recorded. Procedure Notes None recorded. Medical Equipment None Reported. Medications Name Sig Start Date Stop Date Status Note LastModified by Organization Details LastModified Time amoxicillin 500 mg capsule TAKE ONE CAPSULE BY MOUTH THREE TIMES DAILY UNTIL FINISHED 11/03 completed Not Available Not Available Not Available cetirizine 10 mg tablet TAKE 1 TABLET BY MOUTH DAILY NEEDED FOR ALLERGY SYMPTOMS active Not Available Not Available No t Available ibuprofen 800 mg tablet TAKE 1 TABLET BY MOUTH EVERY 6 HOURS NEEDED FOR PAIN 11/06 completed Not Available Not Available Not Available dextroamphe tamine-amph etamine 10 mg tablet TAKE 1 TABLET BY MOUTH TWICE DAILY 4 TO 6 HOURS APART 11/06 completed Not Available Not Available Not Available olanzapine 5 mg tablet TAKE 1 TABLET BY MOUTH EVERY DAY AT BEDTIME active Not Available Not Available No t Available dextroamphe tamine-amph etamine 20 mg tablet TAKE 1 TABLET BY MOUTH TWICE DAILY 4 TO 6 HOURS APART active Not Available Not Available No t Available divalproex ER 500 mg tablet,exte nded release 24 hr TAKE 1 TABLET BY MOUTH THREE TIMES A DAY active Not Available Not Available No t Available ibuprofen 200 mg tablet Take 1 tablet every 6 hours by oral route. 11/06 completed Not Available Not Available Not Available ipratropium bromide 21 mcg (0.03 %) nasal spray USE 2 SPRAYS INTRANASA LLY THREE TIMES DAILY 11/06 completed Not Available Not Available Not Available bupropion HCl XL 300 mg 24 hr tablet, extended release TAKE 1 TABLET BY MOUTH EVERY MORNING 11/06 completed Not Available Not Available Not Available bupropion HCl XL 150 mg 24 hr tablet, extended release TAKE 1 TABLET BY MOUTH EVERY DAY active Not Available Not Available No t Available B Complex Plus Vitamin C active Not Available Not Available No t Available biotin active Not Available Not Availa ble Not Available Calcium 600 + D(3) active Not Available Not Available Not Available levocetiriz ine 5 mg tablet TAKE 1 TABLET ORALLY DAILY NEEDED FOR ALLERGY SYMPTOMS active Not Available Not Available No t Available One-A-Day Men's Multivitami n active Not Available Not Available Not Available Vitals Date Recorded Body height Body mass index (BMI) Body weight Provider Name and Address Organization Details Last Updated DateTime 11/06/2024 177.8 cm 25.1 kg/m2 63500.66 g Rufina Gutiérrez [place] - [facility] 11/06/2024 11:11:19 Date Recorded Body height Body mass index (BMI) Body weight Provider Name and Address Organization Details Last Updated DateTime 02/19/2024 177.8 cm 25.1 kg/m2 56064.66 g Glenis Benz [place] - [facility] 02/19/2024 13:16:07 Social History Question Answer Notes LastModified by [employer] Details LastModified Time Tobacco Smoking Status Former Smoker LEELA RENO MD [address] [place] [address], [address], [facility] - [facility] 02/19/2024 13:32:06 How Many Alcoholic Drinks Do You Consume Per Day On Average? 6 Information not available 02/19/2024 When Did You Quit Smoking? 16+yearssinc elastcigaret te Information not available 02/19/2024 Sex: Unknown Functional Status Question Answer Note LastModified by [employer] Details LastModified Time How many times per week do you consume alcohol? 3-4 times per week Information not available 02/19/2024 What is your level of alcohol consumption? Occasional Information not available 02/19/2024 Mental Status None recorded. Family History Nothing Reported. Medical History No medical history recorded. Past Encounters Encounter ID Performer Location Encounter Start Date Encounter Closed Date Diagnosis/Indication Diagnosis SNOMED-CT Code Diagnosis ICD10 Code Diagnosis Note [id number] LEELA RAMOS MD [facility] [address] [address] 02/19/2024 12:52:19 02/19/2024 14:06:32 Chronic rhinitis 53501070 J31.0 Paralysis of left vocal cord 112436639 J38.01 Pre-surgery testing 1104 51510 Z01.812 [id number] LEELA RAMOS MD [facility] [address] [address] 11/06/2024 11:06:38 11/06/2024 11:53:27 Paralysis of left vocal cord 237689353 J38.01 Chronic rhinitis 7067616 6 J31.0 Health Concerns Section Related Observation LastModified by Organization Detai ls LastModified Time None Recorded Concern Status LastModified by Organization Details LastModified Time None Recorded Advance Directives Directive None Recorded Payers Insurance Date Sequence Insurance Name Policy Number Policy Hou Covered Member ID Hou Member ID Guarantor Name 02/19/2024 2 [place]: [employer] Eugenia Bowman Jonatan [id number] Eugenia Bowman Jonatan 11/06/2024 1 [employer] (MEDICARE REPLACEMENT/ ADVANTAGE - PPO) [id number] Eugenia Bowman Jonatan [id number] Eugenia Gracie Cheung Notes Date Note Type Note Provider Name and Address Organization Details Recorded Time 02/19/2024 text/html ROS as noted in the HPI Hx of chronic ear disease with 2 procedures. Last 1971. Patient has a sensation of mucus or fluid draining down from his left eustachian tube into his throat causing postnasal drip, frequent throat clearing and change in voice. This has been present for several months. [place] sx worse with INS. Feels cetirizine can be helpful. Some time he has difficulty with food going down the wrong wayNo glaucomaSx fluctuateCOVID 19 x 2 occasions last episode 2 months ago. These sx began before COVID. He is on adderal for brain fog which is helping LEELA RENO MD [address] [place] [address], [address], [place] - [facility] 02/19/2024 14:00:43 11/06/2024 text/html The patient is a 69-year-old male presenting with vocal cord dysfunction and voice change. 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 Symptoms have been noted to deteriorate throughout the workday. Previously conducted diagnostics, including a fiberoptic laryngoscopy and imaging of the neck and chest, revealed left vocal cord paralysis with no underlying growths. Chronic ear disease with prior surgical repair was mentioned but he is having no concerns LEELA RENO MD [address] [place] [address],[address], [address], [place] [facility] 11/06/2024 11:54:06
== END 2024-11-14 09:44 | disposition home or self-care (01) ==
LOC: HO.HPS 09:09
PROVIDERS: PCP Internal Medicine; Referring Provider Internal Medicine; Visit Provider Physician Assistant Medical
DX: Z87.891 Personal history of nicotine dependence (principal)
CPT/HCPCS: G0296

== ENCOUNTER 2024-11-14 09:28 | Outpatient (REF) | payer OTHER, SELFPAY ==
--- NOTE | ~2024-11-14 | CT_ITS ---
EXAMINATION: CT LOW-DOSE SCREENING CHEST WITHOUT CONTRAST CLINICAL INFORMATION: 69-year-old male, former smoker, 54 pack years, quit one year prior. COMPARISON: None available. TECHNIQUE: Multidetector volumetric CT imaging of the chest is performed on a Siemens SOMATOM Definition scanner without contrast using low dose technique. Additional 2D coronal and sagittal reformatted images and axial 3D maximum intensity projection (MIP) images are generated on the CT workstation. This CT examination was performed using dose optimization techniques as appropriate, variously including the following: *Automated exposure control *Adjustment of mA and/or kV according to patient size (this includes techniques or standardized protocols for targeted exams where dose is matched to indication/reason for exam; i.e. extremities or head) *Use of iterative reconstruction technique FINDINGS: PULMONARY NODULES: 3 mm nodule right upper lobe (series 5, image 94). 4 mm nodule right upper lobe (series 5, image 92). 3 mm nodule right lower lobe, posterior costophrenic sulcus (series 5, image 151). 3 mm nodule left lower lobe (series 5, image 130). LUNGS: There is mild centrilobular emphysema present. There is minor scarring in the medial lower lobes bilaterally abutting the spine. Lungs otherwise clear and well expanded. No abnormal consolidations or groundglass opacities. Small airways appear normal. Central airways are patent. No pneumothorax or pleural effusion. MEDIASTINUM: No mass or abnormal lymph nodes. Normal thyroid. Aorta is normal in caliber and course. Main pulmonary artery is normal in size. Heart size is normal. No pericardial effusion. Esophagus is normal. CORONARY ARTERY CALCIFICATION: None visualized on this study. CHEST WALL/AXILLA: Unremarkable. UPPER ABDOMEN: Significant diverticulosis of the imaged colon. Remainder of the imaged upper abdominal contents appear normal. OSSEOUS STRUCTURES: No suspicious lytic or blastic bone lesion. There are mild spinal degenerative changes. CT/CT lung screening IMPRESSION: 1. There are a few scattered pulmonary nodules measuring up to 4 mm. 2. There is mild centrilobular emphysema. There is no active pulmonary disease. 3. There is diverticulosis of the imaged colon. ASSESSMENT: 1. Lung-RADS Category 2: Benign appearance or behavior of nodules. 2. Lung-RADS Category S: None. RECOMMENDATION: Continued routine annual low-dose CT lung screening in 1 year is recommended. An order for CT CHEST LOW DOSE CANCER SCREENING ([id number]) can be placed. Electronically signed by: Jez Barrientos MD 11/14/2024 10:54 AM EDT
== END 2024-11-14 09:29 | disposition home or self-care (01) ==
LOC: HO.CT 09:28
PROVIDERS: PCP Internal Medicine; Visit Provider Physician Assistant Medical
DX: Z12.2 Encounter for screening for malignant neoplasm of respiratory organs (principal); Z87.891 Personal history of nicotine dependence
CPT/HCPCS: 71271

== ENCOUNTER → 2024-11-14 09:29 | Outpatient (BNV) | payer OTHER, SELFPAY | PROVIDERS: PCP Internal Medicine; Visit Provider Radiology Diagnostic Radiology | DX: Z87.891 Personal history of nicotine dependence (principal) | CPT/HCPCS: 71271 ==

== ENCOUNTER 2024-12-30 13:19 | Outpatient (REF) | payer OTHER, SELFPAY ==
[2024-12-30 18:25] LABS: MANUAL DIFF FLAG NO
[2024-12-30 18:37] LABS: Hematocrit 42.8 % (42.0-52.0); Hemoglobin 14.0 g/dl (14.0-18.0); Imm Gran Abs Auto 0.01 X10*3/uL (0.00-0.03); Imm Gran Pct Auto 0.1 % (0.0-0.4); Lymphocytes Absolute Auto 3.2 X10*3/uL (1.2-4.9); Mean Corpuscular HGB Conc 32.7 g/dl (31.0-36.0); Mean Corpuscular Hemoglobin 30.2 pg (27.0-33.0); Mean Corpuscular Volume 92.2 fL (80.0-98.0); NRBC Abs Auto 0.000 X10*3/uL (0.0-0.012); NRBC Pct Auto 0.0 /100WBC (0.0-0.2); Platelet Count 124 X10*3/uL (160-400); Red Blood Count 4.64 X10*6/uL (4.60-5.80); White Blood Count 6.9 X10*3/uL (4.8-10.8)
[2024-12-30 18:52] LABS: Alanine Aminotransferase 80 U/L (0-40); Albumin Level 4.3 g/dL (3.5-5.0); Alkaline Phosphatase 61 U/L (39-117); Anion Gap 10 (12-20); Aspartate Amino Transferase 64 U/L (5-37); Blood Urea Nitrogen 21 mg/dL (9-16); Calcium 9.4 mg/dL (8.4-10.2); Carbon Dioxide 27 mmol/L (22-29); Chloride 109 mmol/L (96-108); Estimated Glomerular Filt Rate > 60; Potassium 4.5 mmol/L (3.3-5.1); Sodium 141 mmol/L (135-145); Total Protein 6.9 g/dL (6.5-8.0)
[2024-12-30 19:09] LABS: Prostate Specific Antigen 3.95 ng/mL (<0.05-4.0)
== END 2024-12-30 13:20 | disposition home or self-care (01) ==
LOC: HO.WFDLDS 13:19
PROVIDERS: PCP Internal Medicine; Visit Provider Internal Medicine
DX: Z13.228 Encounter for screening for other metabolic disorders (principal); Z12.5 Encounter for screening for malignant neoplasm of prostate; Z00.00 Encounter for general adult medical examination without abnormal findings; D69.6 Thrombocytopenia, unspecified; K63.5 Polyp of colon; F31.9 Bipolar disorder, unspecified; J38.3 Other diseases of vocal cords; R41.3 Other amnesia
CPT/HCPCS: 36415; 80053; 84153; 85025

== ENCOUNTER 2024-12-30 13:19 | Outpatient (AMB) | payer OTHER, SELFPAY ==
--- OUTSIDE RECORDS SUMMARY | 2023-11-28 05:45 | XMS_ITS ---
Author Organization [facility] Address [address] [address] Care Team Providers Care Clarifier Name Role Phone Noemí Lee Primary Care Provider UnavailBERNICE Greenwood Unavailable [phone] Allergies No Known Allergies REASON FOR VISIT orthotics Medications Medication SIG (Take, Route, Frequency, Duration) Notes Start Date End Date Status ZyPREXA Active Wellbutrin Active Encounters Encounter Location Date Provider Diagnosis [facility] [address] [address] 11/28/2023 BERNICE DUMONT Plan Of Treatment Next Appt Details Provider Name:BERNICE DUMONT, 02/25/2025 08:00:00 AM, [address], [address], Progress Notes * KAT JonDOB:1954 (69 yo M)Acc No.[id number]:11/28/2023 Consult note Patient: Jon JORGE Provider: Briana Dumont DPM :1955 A ge:68 Y S ex:Male Date:11/28/2023 Phone: Address:[address], [phone] Pcp:Noemí Lee Subjective: * Chief Complaints: * [...] Electronic signature of KIMO DUMONT D.P.M on 12/30/2024 at 03:42 PM EDT Sign off status: Pending * Provider: Briana Dumont DPM Date: 11/28/2023 Generated for Sam Duff/Pnocho on: 12/30/2024 03:42 PM EDT
--- NOTE | 2024-12-30 13:43 | AM.OFFVISMDC ---
Intake Vital Signs 12/30/24 13:44 Height 5 ft 10 in Intake Visit Reasons: AWV/CPE Allergies No Known Allergies Allergy (Verified 09/16/24 09:28) PFSH Medical History (Updated 11/14/24 @ 09:27 by Dee Dee Bell PA-C) Lumbar spondylosis Bipolar depression Osteopenia Personal history of nicotine dependence Hernia Bradycardia Surgical History (Updated 11/14/24 @ 09:30 by Dee Dee Bell PA-C) History of left mastoidectomy History of right inguinal hernia repair H/O endoscopy Social History (Updated 11/14/24 @ 09:29 by Dee Dee Bell PA-C) Household Members: None Housing: Apartment Alcohol intake: current Patient Tobacco Use Status: Former Tobacco user (quit in 2023) Tobacco use type: Cigar (Occasionally about 2 a day. ) Years Smoked: (onset 14yo, 1/2ppd x 54yrs, 25pyh, quit 10/2023) e-Cigarette/Vaping Use: Never Used Second Hand Smoke Exposure: No service: No Current occupational status: retired Cognitive needs: No Hearing needs: No Vision needs: No Coding
[2024-12-30 13:44] VITALS: BP 124/76; PULSE 62; RESP 14; O2SAT 97; BMI 25.4
--- NOTE | 2024-12-30 13:47 | A.OFFPC_ITS ---
Vital Signs 12/30/24 13:44 Height 5 ft 10 in Weight 177 lb BMI 25.4 BP 124/76 Blood Pressure Location Rt brachial Position Sitting Respiration 14 Pulse 62 Pulse Source Pulse Oximeter Pulse Oximetry (%) 97 Oxygen Delivery Method Room Air Intake Visit Reasons: AWV/CPE Allergies No Known Allergies Allergy (Verified 09/16/24 09:28) Tobacco use date assessed: 12/30/24 Fall risk assessment: No Falls in past year Last assessed Fall Risk: 12/30/24 Dental Screening Dental Screen Date: 12/30/24 Did you have a dental visit in the last 12 months?: Yes Did you have a dental problem in the last 6 months where you did not have access to dental care?: No Was dental information given to patient?: Patient has dentist HPI HPI Comments History of Present Illness Details Patient is a 69-year-old male with history of bipolar disorder, brain fog/attention deficit, foot pain, osteopenia, low back pain, vocal cord dysfunction presenting for physical exam Continues to have hoarseness. Patient saw ENT Dr Riojas in the past year, he tells me there was evidence of vocal cord dysfunction. He has an appointment to see vocal cord specialist at [facility]: Brain fog has lifted. Still some memory issues-difficulty with short and halfway memory. 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 Referred to memory clinic in Dec. following with psych on [facility]. He has not had an appointment scheduled He is doing well on buproprion, adderall and olanzapine. Had significant bradycardia with lithium. Following with therapist. MSK: Low back pain. Saw PSS. Completed physical therapy. Foot pain with interval improvement-Sees podiatry, [place]. Has osteopenia. Heme/Onc: Follows with [facility]. Recent labs with mild lymphocytosis, decreased platelets-repeat including citrate platelets still abnormal. Smear with decreased, large platelets otherwise reassuring. continues to suffer from some fatigue Urology: Went to see-hydrocele last year. Follow up as needed. LDCT completed-one year follow up Patient is due for colonoscopy in 2025-referred Td UTD. ROS see HPI PHYSICAL EXAM: GENERAL: Alert and oriented x 3. NAD EYES: EOMI. Anicteric. HENT: Moist mucous membranes. No scleral icterus. No cervical lymphadenopathy. LUNGS: Clear to auscultation bilaterally. CARDIOVASCULAR: Regular rate and rhythm. No murmur. No JVD. ABDOMEN: Soft, non-tender +bs EXTREMITIES: No edema. Non-tender. HEME/LYMPH: On the posterior left neck there is a palpable 2cm mass SKIN: No rashes or lesions. Warm. NEUROLOGIC: No focal neurological deficits. CN II-XII grossly intact PSYCHIATRIC: Cooperative. Appropriate mood and affect [facility] Medical History Lumbar spondylosis Bipolar depression Osteopenia Personal history of nicotine dependence Hernia Bradycardia Surgical History History of left mastoidectomy History of right inguinal hernia repair H/O endoscopy Social History Household Members: None Housing: Apartment Alcohol intake: current Patient Tobacco Use Status: Former Tobacco user (quit in 2023) Tobacco use type: Cigar (Occasionally about 2 a day. ) Years Smoked: (onset 14yo, 1/2ppd x 54yrs, 25pyh, quit 10/2023) e-Cigarette/Vaping Use: Never Used Second Hand Smoke Exposure: No service: No Current occupational status: retired Cognitive needs: No Hearing needs: No Vision needs: No Questionnaire Thrive Questionnaire Date Thrive assessed: 05/06/24 I am a: Patient What is your living situation today?: I have a steady place to live Within the past 12 months, did the food you bought not last and you didn't have the money to get more?: Never true Within the past 12 months, did you worry whether your food would run out before you got money to buy more?: Never true Do you have trouble paying for medicines?: No Do you have trouble getting transportation to medical appointments?: No Do you have trouble paying your heating and electricity bill?: No Do you have trouble taking care of your child, family member or friend?: No Do you have trouble with day-to-day activities such as bathing, preparing meals, shopping, managing finances, etc.?: No Are you currently unemployed and looking for a job?: No Are you interested in more education?: No Please select the resources that you would like help with: None Currently or been in a relationship where the following occur: No concerns reported THRIVE Score: 0 AUDIT C Alcohol Use Questionnaire (AUDIT-C) 1. How often do you have a drink containing alcohol?: 2-3 times a week 2. How many drinks containing alcohol do you have on a typical day when you are drinking?: 3 or 4 3. How often do you have six or more drinks on one occasion?: Never Total Score: 4 MIKY-7 AMB Questionnaire MIKY-7 Date MIKY - 7 assessed: 03/28/24 Source: Developed by Drs. Jon Webb, Blanquita Davidson, Grayson Medina and colleagues, with an educational eligio from [employer]. Physical exam (Primary Care) Vital Signs: Last Vital Signs Pulse 62 12/30/24 13:44 Resp 14 12/30/24 13:44 BP 124/76 12/30/24 13:44 Pulse Ox 97 12/30/24 13:44 Oxygen Delivery Method Room Air 12/30/24 13:44 BMI result Body Mass Index 25.4 Tobacco/Smoking Status: Tobacco use Status Tobacco use date assessed 12/30/24 12/30/24 13:54 Patient Tobacco Use Status Former Tobacco user (quit in 12/30/24 13:54 2023) Tobacco use type Cigar (Occasionally about 2 12/30/24 13:54 a day. ) e-Cigarette/Vaping Use Never Used 12/30/24 13:54 Thrive Assessment: Date of Thrive Assessment Date Thrive assessed 05/06/24 12/30/24 13:54 Currently or been in a relationship where the following occur: No concerns reported Coding Level of Care Code Est Pt Prev Care >65y(28332) Diagnoses Bipolar depression F31.9 Physical exam Z00.00 Vocal cord dysfunction J38.3 Memory loss R41.3 Assessment & Plan Assessment & Plan (1) Bipolar depression: Code(s): F31.9 - Bipolar disorder, unspecified Category: Medical (2) Physical exam: Code(s): Z00.00 - Encounter for general adult medical examination without abnormal findings Category: Medical (3) Vocal cord dysfunction: Code(s): J38.3 - Other diseases of vocal cords Category: Medical (4) Memory loss: Code(s): R41.3 - Other amnesia Category: Medical Plan CPE Interval history reviewed Preventive measures for age discussed Refer GI for colonoscopy. Depression stable Memory issues-call back memory clinic Neck mass/lump-us ordered Orders: Orders Complete Blood Count Auto Diff 12/30/24 D69.6 - Thrombocytopenia, unspecified, K63.5 - Polyp of colon, Z12.5 - Encounter for screening for malignant neoplasm of prostate, Z13.228 - Encounter for screening for other metabolic disorders Comprehensive Met. Panel 12/30/24 D69.6 - Thrombocytopenia, unspecified, K63.5 - Polyp of colon, Z12.5 - Encounter for screening for malignant neoplasm of prostate, Z13.228 - Encounter for screening for other metabolic disorders Prostate Specific Antigen 12/30/24 D69.6 - Thrombocytopenia, unspecified, K63.5 - Polyp of colon, Z12.5 - Encounter for screening for malignant neoplasm of prostate, Z13.228 - Encounter for screening for other metabolic disorders US soft tiss head and/or neck 12/30/24 R22.1 - Localized swelling, mass and lump, neck Referrals Gastroenterology Referral K63.5 - Polyp of colon
--- OUTSIDE RECORDS SUMMARY | 2024-12-30 15:43 | XMS_ITS | Patient Health Record ---
Author Organization [facility] Address [address] [place] [address] Care Team Providers Care Tuft Machine Operator Name Role Phone Ronald Hernandez Primary Care Provider Jesus Bradshaw Unavailable [phone] Reason For Referral No Information Medications Medication SIG (Take, Route, Frequency, Duration) Notes Start Date End Date Status Advil Active Tylenol Active LaMICtal Active [place] Active Suprep Bowel Prep Kit 17.5-3.13-1.6 GM/177ML 17.5-3.13-1.6 GM/177ML Orally per physician prep sheet; Duration: 2 days 08/30/2020 Active Social History Tobacco [...] Problem Status W/U Status Risk Notes Problem History of polyp of colon (situation) (673047656) Personal history of colonic polyps (Z86.010) Active confirmed Patient has history of colon polyps. Last colonoscopy was around 2012, he is ago. Some polyps were seen and told to repeat in 5 years. We'll plan on doing repeat colonoscopy now. Problem History of polyp of colon (situation) (742121171) Personal history of colon polyps (Z86.010) Active confirmed Plan Of Treatment No Information Insurance Providers Payer Name Payer Address Payer Phone Subscriber Number Group Number Insured Name Patient Relationship to Insured Coverage Start Date Coverage End Date [facility] [address] [place] [phone] [id number] EUGENIA STUBBS Self - patient is the insured Medical (General) History Medical History History ICD Code Bipolar disorder Surgical History Surgery Date(Month/Year) Mastoid surgery with revision
--- OUTSIDE RECORDS SUMMARY | 2024-12-30 15:43 | XMS_ITS | Patient Health Record ---
Author Organization [facility] Address [address] [address] Care Team Providers Care Carpet Layer Name Role Phone Noemí Lee Primary Care Provider UnavailBERNICE Greenwood Unavailable [phone] Allergies No Known Allergies Reason For Referral [...] Problem Status W/U Status Risk Notes Problem Acquired hammer toe of right foot (9973691778464 105) Hammer toe of right foot (M20.41) Active confirmed Vital Signs Heart Rate 62 /min 02/25/2024 Temperature 96.2 degrees Fahrenheit 02/25/2024 Respiratory Rate 16 /min 02/25/2024 Height 5ft 10in in 02/25/2024 Weight 180.8 lbs 02/25/2024 BMI 25.94 kg/m2 02/25/2024 Encounters Encounter Location Date Provider Diagnosis [facility] [address] [address] 12/31/2023 BERNICE MACARIO PTTD (posterior tibial tendon dysfunction) M76.829 ; Hammer toe of right foot M20.41 ; Metatarsalgia, right foot M77.41 ; Metatarsalgia, left foot M77.42 ; Pain in left toe(s) M79.675 and Pain in right toe(s) M79.674 [facility] [address] [address] 02/25/2024 BERNICE MACARIO PTTD (posterior tibial tendon [...] Name:BERNICE MACARIO, 02/25/2025 08:00:00 AM, [address], [address], Insurance Providers Payer Name Payer Address Payer Phone Subscriber Number Group Number Insured Name Patient Relationship to Insured Coverage Start Date Coverage End Date [employer] Medicare [address] [place] [address] [id number] Jon Mcleod Self - patient is the insured Medical (General) History Medical History History ICD Code mild lymphocytosis fatigue low back strain bipolar disorder scrotal pain hernia bradycardia osteopenia thrombocytopenia + COVID 12/2023 COVID vaccinated X 3 ([employer])
== END 2024-12-30 14:28 | disposition home or self-care (01) ==
LOC: HO.HMCFM 13:19
PROVIDERS: PCP Internal Medicine; Visit Provider Internal Medicine
DX: F31.9 Bipolar disorder, unspecified (principal); Z00.00 Encounter for general adult medical examination without abnormal findings; J38.3 Other diseases of vocal cords; R41.3 Other amnesia

== ENCOUNTER 2025-02-26 12:36 | Outpatient (REF) | payer OTHER, SELFPAY ==
--- OUTSIDE RECORDS SUMMARY | 2023-11-28 04:45 | XMS_ITS ---
Author Organization [facility] Address [address] [address] Care Team Providers Care Interior Block Wirer Name Role Phone Noemí Lee Primary Care Provider UnavailBERNICE Greenwood Unavailable [phone] Allergies No Known Allergies REASON FOR VISIT orthotics Medications Medication SIG (Take, Route, Frequency, Duration) Notes Start Date End Date Status ZyPREXA Active Wellbutrin Active Encounters Encounter Location Date Provider Diagnosis [facility] [address] [address] 11/28/2023 BERNICE DUMONT Plan Of Treatment Next Appt Details Provider Name:BERNICE DUMONT, 02/27/2025 09:45:00 AM, [address] [address], [place], [address], Progress Notes * Jon STEPHENSDOB:1954 (70 yo M)Acc No.[id number]:11/28/2023 Consult note Patient: Jon JORGE Provider: Briana Dumont DPM :1955 A ge:68 Y S ex:Male Date:11/28/2023 Phone: Address:[address], [phone] Pcp:Noemí Lee Subjective: * Chief Complaints: * [...] Electronic signature of KIMO DUMONT D.P.M on 02/26/2025 at 03:24 PM EST Sign off status: Pending * Provider: Briana Dumont DPM Date: 0 11/28/2023 Generated for Sam macias/Jesús/Poncho on: 04/28/2024 03:24 PM EST
--- OUTSIDE RECORDS SUMMARY | 2025-02-25 03:00 | XMS_ITS ---
Author Organization [facility] Address [address] [facility] [address] [place] [address] Care Team Providers Care Asbestos Worker Name Role Phone Noemí Lee Primary Care Provider UnavailBERNICE Greenwood Unavailable [phone] REASON FOR VISIT annual Encounters Encounter Location Date Provider Diagnosis [facility] [address] [facility] [address] [place] [address] 02/25/2025 BERNICE DUMONT Plan Of Treatment Next Appt Details Provider Name:BERNICE DUMONT, 02/27/2025 09:45:00 AM, [address] [facility] [address], [place], [address], Progress Notes * KATJonDOB:1954 (70 yo M)Acc No.[id number]:02/25/2025 Progress Note Patient: Jon JORGE Provider: Briana Dumont DPM :1955 A ge:70 Y S ex:Male Date:02/25/2025 Phone: Address:[address], [phone] Pcp:Noemí Lee Subjective: * Chief Complaints: * 1 . Annual. * Medical History: Objective: * Vitals: Assessment: Plan: * Treatment: * Billing Information: * Visit Code: * Procedure Codes: * Electronic signature of KIMO DUMONT D.P.M on 02/26/2025 at 03:24 PM EST Sign off status: Pending * Provider: Briana Dumont DPM Date: 04/27/2024 Generated for Sam macias/Jesús/Poncho on: 04/28/2024 03:24 PM EST
--- NOTE | ~2025-02-26 | US_ITS ---
CLINICAL HISTORY: R22.1 - Localized swelling, mass and lump, neck --- Additional Notes or Special Instructions: left posterior neck lump mass US neck nonvascular Comparison: None Findings: Sonographic evaluation in the area of clinical concern left posterior neck demonstrates a cystic structure with a sinus tract measuring 5 x 5 x 4 mm. Consider a sebaceous cyst. Follow-up until resolution Impression: Cyst with a probable sinus tract left posterior neck most likely a sebaceous cyst clinical correlation advised. This document has been electronically signed by: Eran Farah MD on 02/27/2025 10:37:14
--- OUTSIDE RECORDS SUMMARY | 2025-02-26 15:25 | XMS_ITS | Data Portability ---
Author Organization [place] [facility] Address [address] [facility] [address] [place] [address] Care Team Providers Care Video Game Script Writer Name Role Phone JHONY TRAN Primary Care Provider [phone] Assessment Encounter Date Assessment Date Assessment LastModified [...] were present. Findings discussed with the patient. [email or web address] Not available 11/06/2024 11:53:01 Plan of Treatment Reminders Order Date Submit Date Provider Last Modified By Organization Details Last Modified Time Details Appointments Test Results 2025 03:30P M EUGENIA Chan MD Not available Not available Not available Lab bun/creat inine, ratio, serum 2023 024 ARISTEO [facility] (Centralized Electronic Ordering - All Locations), Patient Can Go To The Location Of Their Choice, [facility] 02/20/2024 06:23:[address] referral 2024 025 [facility] Rose, [address] [facility], [place], [address], 01/21/2025 15:19:57 Procedures None recorded. Surgeries None recorded. Imaging CT, chest, w/ contrast - with and without contrast. ..;labs at [facility] 2023 024 ARISTEO [facility] [place], [address] [facility], [address] [facility], [place], [address], 03/04/2024 11:34:52 CT, neck, soft tissue, w/ contrast - [email or web address] 2023 024 [email or web address] [facility] [place], [address], [place], [address], 02/27/2024 13:28:35 Medication Orders ipratropi um bromide 21 mcg (0.03 %) nasal spray 2023 025 [place] [facility] [id number], [address] [place], [place], [id number], 11/06/2024 11:12:05 Patient TargetsNo targets recorded. Patient Instructions Encounter Date Encounter Id Patient Instructions Last Modified By Organization Details Last Modified Time 11/06/2024 [id number] Please note: Parts of this encounter note have been generated by AI based on audio conversation. Patient consent was required prior to utilizing this technology. Content review was required prior to finalizing the note. [email or web address] Not available 11/06/2024 11:49:31 Reason for Referral Speech Language Pathologist Referral for Vocal cord paralysis Referring Physician: Eugenia Daugherty, Otolaryngology, Encounter Date: 01/20/2025 Results Created Date Observation Date Name Description Value Unit Range Abnormal Flag Note LastModifiedBy Organization Detail LastModifiedTime 02/19/2002/20/2024 BUN+C REAT BUN 24 mg/dL 8-27 normal Not Available [facility] ([facility]) [address] [facility], [place], [address], 02/20/2024 06:23:40 02/19/2002/20/2024 BUN+C REAT creatinine 1.16 mg/dL 0.76-1 .27 normal Not Available [facility] ([facility]) [address] [facility], [place], [address], 02/20/2024 06:23:40 02/19/20 24 02/20/2024 BUN+C REAT eGFR 69 mL/mi n/1.7 3 >59 normal Not Available [facility] ([facility]) [address] [facility], [place], [address], 02/20/2024 06:23:40 02/19/20 24 02/20/2024 BUN+C REAT BUN/creatini ne ratio 21 10-24 normal Not Available [facility] ([facility]) [address] [place], [address], 02/20/2024 06:23:40 03/04/20 24 03/04/2024 CT, chest , w/ contr ast No observ ation record ed. [facility] [address], [address], 03/08/2024 08:35:17 03/04/20 24 03/04/2024 CT, neck, soft tissu e, w/ contr ast No observ ation record ed. ARISTEO [facility] [place] [address] [facility] [address], [place], [address], 03/08/2024 08:35:17 03/06/20 24 03/04/2024 CT, neck, soft tissu e, w/ contr ast No observ ation record ed. ARISTEO [facility] [place] [address] [facility] [address], [place], [address], 03/08/2024 08:35:18 03/06/20 24 03/04/2024 CT, chest , w/ contr ast No observ ation record ed. ARISTEO [facility] [place] [address] [facility] [address], [place], [address], 03/08/2024 08:35:18 Result Notes None recorded. Problems Name Problem SNOMED Code Status Onset Date Resolution Date Notes Provider Name and Address Organization Details Recorded Time Chronic rhinitis 08702989 Active 2023 LEELA COCHRAN MD [address] [place] [address], [place], [address], [facility] 4 13:54:25 Paralysis of left vocal cord 184743437 Active 2023 LEELA COCHRAN MD [address] [place] [address], [place], [address], [facility] 4 13:54:38 Localized enlarged lymph nodes 939544358 Active 2023 LEELA COCHRAN MD [address] [place] [address], [place], [address], [facility] 4 13:55:01 Vocal cord paralysis 270495167 Active 2024 EUGENIA Chan MD [address] [place] [address], [place], [address], [facility] - [facility] 5 15:47:28 Chronic hoarseness 4012412794176 Active 2024 EUGENIA Chan MD [address] [place] [address], [place], [address], [place] [facility] 16:06:37 Problem Notes None recorded. Procedures Surgical History Date Name Laterality Status Provider Name and Address Organization Details Recorded Time 01/21/20 25 FFL_RE completed EUGENIA DAUGHERTY MD [address] [facility],[address], [address], [place] [facility] 01/20/2025 16:05:21 11/07/19 25 FOL_LEFTVFP_JMS completed LEELA RENO MD [address] [facility],[address], [address], [place] [facility] 11/06/2024 11:52:34 02/19/20 24 FOL_LEFTVFP_JMS completed LEELA RENO MD [address] [facility],[address], [address], [facility] - [facility] 02/19/2024 13:54:20 left mastoidectomy completed LEELA RENO MD [address] [facility],[address], [address], [facility] 02/19/2024 13:29:23 Imaging Results None recorded. Procedure [...] mg tablet TAKE 1 TABLET BY MOUTH 2 TIMES A DAY, ADMINISTE R DOSES AT LEAST 4-6 HOURS APART active Not Available Not Available No t Available divalproex ER 500 mg tablet,exte nded release 24 hr 500 MG ORALLY 3 TIMES A DAY active Not Available Not [...] Updated DateTime 11/06/2024 177.8 cm 25.1 kg/m2 89485.66 g Rufina Gutiérrez [place] [facility] 11/06/2024 11:11:19 Date Recorded Body height Body mass index (BMI) Body weight Provider Name and Address Organization Details Last Updated DateTime 01/20/2025 177.8 cm 25.1 kg/m2 62287.66 g Jose Meyer [place] [facility] 01/20/2025 15:52:40 Date Recorded Body height Body mass index (BMI) Body weight Provider Name and Address Organization Details Last Updated DateTime 02/19/2024 177.8 cm 25.1 kg/m2 92895.66 g Glenis Benz [place] [facility] 02/19/2024 13:16:07 Social History Question Answer Notes LastModified by Organizat ion Details LastModified Time Tobacco Smoking Status Former Smoker LEELA RENO MD [address] [place] [address], [address], [facility] 02/19/2024 13:32:06 How Many Years Have You Consumed Alcohol? 45 Information not available 01/20/2025 What Type Of Back Tender Do You Use? None Information not available 01/20/2025 How Many Alcoholic Drinks Do You Consume Per Day On Average? 2 Information not available 01/20/2025 When Did You Quit Smoking? 1-5yearssinc elastcigaret te Information not available 01/20/2025 What Is Your Current Pack Years? 10packyears Information not available 01/20/2025 Do You Have Any Pets? Yes Information not available 01/20/2025 At What Age Did You Start Smoking Tobacco? 14 Information not available 01/20/2025 Are You Passively Exposed To Smoke? No Information not available 01/20/2025 Are There Any Smokers In Your House? No Information not available 01/20/2025 How Much Tobacco Do You Smoke? No Information not available 01/20/2025 How Many Years Have You Smoked Tobacco? 52 Information not available 01/20/2025 Sex: Unknown Functional Status Question Answer Note LastModified by Organization Details LastModified Time How many times per week do you consume alcohol? 1-2 times per week Information not available 01/20/2025 Do you use any illicit or recreational drugs? No Information not available 01/20/2025 Do you or have you ever used any other forms of tobacco or nicotine? No Information not available 01/20/2025 What is your level of alcohol consumption? Occasional jschreibstein Information not available 02/19/2024 What type of noise exposure are you exposed to? noExposureToExcessiveNoise Infor mation not available 01/20/2025 Mental Status None recorded. Family History Nothing Reported. Medical History Condition Response Allergies/Hayfever Y Heart Problems N Anxiety N Tonsil Infections N Emphysema N Migraines N Thyroid Problems N Glaucoma N Depression N COPD N Developmental Delay N Nasal or Sinus Problems N Anemia N Immune System Disorder N Anesthesia Complications N Heart Attack ([place]) N Other Skin Condition N Diabetes N Rhinitis N Bleeding Disorder N Food Allergy N Arthritis N Hearing Loss N Hyperlipidemia N Cancer N Stroke N Dementia N Nasal polyps N Asthma N Sleep Disorder N GERD/Reflux N High Cholesterol N Liver Disease N Headaches N Fibromyalgia N Hypertension N Speech Delay N Kidney Disease N Past Encounters Encounter ID Performer Location Encounter Start Date Encounter Closed Date Diagnosis/Indication Diagnosis SNOMED-CT Code Diagnosis ICD10 Code Diagnosis IMO Codes Diagnosis Note [id number] LEELA RAMOS MD [facility] [address] [address] 02/19/2024 12:52:19 02/19/2024 14:06:32 Chronic rhinitis 56049349 J31.0 Paralysis of left vocal cord 939901544 J38.01 Pre-surgery testing 1104 80267 Z01.812 [id number] LEELA RAMOS MD [facility] [address] [address] 11/06/2024 11:06:38 11/06/2024 11:53:27 Paralysis of left vocal cord 352121973 J38.01 Chronic rhinitis 4544826 6 J31.0 [id number] EUGENIA DAUGHERTY MD [facility] [address] [address] 01/20/2025 15:43:55 01/20/2025 16:07:17 Vocal cord paralysis 463794027 J38.01 66758075 He has a well compensate d left vocal cord paralysis. There is minimal glottic gap. I do not recommend a vocal cord injection as I feel his voice is strong already. I discussed the option of voice therapy which he was interested in. I also briefly discussed thyroplast y surgery and that I could refer him to [place] for this. We deferred this for now. He believes his paralysis happened about a year ago. At our follow-up visit I will consider this referral if he is still struggling with his voice. Chronic hoarseness 09322 03810 105 R49.0 [id number] see above Health Concerns Section Related Observation LastModified by Organization Detai ls LastModified Time None Recorded Concern Status LastModified by Organization Details LastModified Time None Recorded Advance Directives Directive None Recorded Payers Insurance Date Sequence Insurance Name Policy Number Policy Hou Covered Member ID Hou Member ID Guarantor Name 02/19/2024 2 MEDICARE B-[place]: [employer] Eugenia Abebefeli [id number] Eugenia Bowman Jonatan 01/21/2025 1 [employer] (MEDICARE REPLACEMENT/ ADVANTAGE - PPO) [id number] Eugenia Bowman Jonatan [id number] Eugenia Bowman Jonatan Notes Date Note Type Note Provider Name [...] This has been present for several months. [place] sx worse with INS. Feels cetirizine can be helpful. Some time he has difficulty with food going down the wrong wayNo glaucomaSx fluctuateCOVID 19 x 2 occasions last episode 2 months ago. These sx began before COVID. He is on adderal for brain fog which is helping LEELA RENO MD [address] [place] [address], [address], [facility] 02/19/2024 14:00:43 11/06/2024 text/html The patient is [...] is having no concerns LEELA RENO MD [address] [place] [address],[address], [address], [facility] 11/06/2024 11:54:06 01/20/2025 text/html ROS as noted in the HPI He has a history of left vocal cord paralysis. He was referred by Dr. Reno for consideration of injection laryngoplasty. CT of the neck and chest did not show any obvious pathology causing the vocal cord paralysis which is likely idiopathic. EUGENIA DAUGHERTY MD [address] [place] [address], [phone], [facility] 01/20/2025 16:07:26
--- OUTSIDE RECORDS SUMMARY | 2025-02-26 15:25 | XMS_ITS | Continuity of Care Document ---
Author Organization [place] - [facility], [facility] Address [address] [place] [address] Care Team Providers Care Delinquent Account Clerk Name Role Phone JHONY TRAN Primary Care Provider [phone] Assessment No assessment recorded. Plan of Treatment Reminders Order Date Submit Date Provider Last Modified By Organization Details Last Modified Time Details Appointments Test Results 2025 03:30P M EUGENIA Chan MD Not available Not available Not available Lab None recorded. Referral speech language pathologi st referral 2024 025 [facility], [address] [place] [address], [place], [address], 01/21/2025 15:19:57 Procedures None recorded. Surgeries None recorded. Imaging None recorded. Medication Orders None recorded. Patient TargetsNo targets recorded. Patient InstructionsNo instructions recorded. Reason for Referral Speech Language Pathologist Referral for Vocal cord paralysis Referring Physician: Eugenia Daugherty, Otolaryngology, Encounter Date: 01/20/2025 Problems Name Problem SNOMED Code Status Onset Date Resolution Date Notes Provider Name and Address Organization Details Recorded Time Chronic rhinitis 94447904 Active 2023 LEELA COCHRAN MD [address] [place] [address], [address] [facility] [place] - [facility] 13:54:25 Paralysis of left vocal cord 820919249 Active 2023 LEELA COCHRAN MD [address] [place], [address], [place] [facility] [place] 13:54:38 Localized enlarged lymph nodes 976189592 Active 2023 LEELA COCHRAN MD [address] [address], [place], [address], [place] [facility] 13:55:01 Vocal cord paralysis 734936116 Active 2024 EUGENIA Chan MD [address] [address], [place], [address], [place] [facility] 15:47:28 Chronic hoarseness 1292691796637 Active 2024 EUGENIA Chan MD [address] [address], [place], [address], [place] [facility] 16:06:37 Problem Notes None recorded. Procedures Surgical History Date Name Laterality Status Provider Name and Address Organization Details Recorded Time 01/21/20 25 FFL_RE completed EUGENIA DAUGHERTY MD [address], [address], [facility] - [facility] 01/20/2025 16:05:21 11/07/19 25 FOL_LEFTVFP_JMS completed LEELA RENO MD [address] [place] [address], [address], [facility] - [facility] 11/06/2024 11:52:34 02/19/20 24 FOL_LEFTVFP_JMS completed LEELA RENO MD [address] [place] [address],[address], [address], [facility] - [facility] 02/19/2024 13:54:20 left mastoidectomy completed LEELA RENO MD [address] [place] [address],[address], [address], [facility] - [facility] 02/19/2024 13:29:23 Imaging Results None recorded. Procedure [...] Updated DateTime 01/20/2025 177.8 cm 25.1 kg/m2 90227.66 g Jose Meyer [place] - [facility] 01/20/2025 15:52:40 Social History Question Answer Notes LastModified by Organizat ion Details LastModified Time Tobacco Smoking Status Former Smoker LEELA RENO MD [address] [place] [address], [place], [address], [place] [facility] 02/19/2024 13:32:06 How Many Years Have You Consumed Alcohol? 45 Information not available 01/20/2025 What Type Of Product Handler Do You Use? None Information not available [...] noise exposure are you exposed to? noExposureToExcessiveNoise grancitelli Infor michelle not available 01/20/2025 Mental Status None recorded. Family History Nothing Reported. Medical History Condition Response Allergies/Hayfever Y Heart Problems N Anxiety N Tonsil Infections N Emphysema N Migraines N Thyroid Problems N Glaucoma N Depression N COPD N Developmental Delay N Nasal or Sinus Problems N Anemia N Immune System Disorder N Anesthesia Complications N Heart Attack (MD) N Other Skin Condition N Diabetes N Rhinitis N Bleeding Disorder N Food Allergy N Arthritis N Hearing Loss N Hyperlipidemia N Cancer N Stroke N Dementia N Nasal polyps N Asthma N High Cholesterol N Sleep Disorder N GERD/Reflux N Liver Disease N Headaches N Fibromyalgia N Hypertension N Speech Delay N Kidney Disease N Past Encounters Encounter ID Performer Location Encounter Start Date Encounter Closed Date Diagnosis/Indication Diagnosis SNOMED-CT Code Diagnosis ICD10 Code Diagnosis IMO Codes Diagnosis Note [id number] EUGENIA DAUGHERTY MD [facility] of [address] [address] 01/20/2025 15:43:55 01/20/2025 16:07:17 Vocal cord paralysis 178495904 J38.01 [id number] He has a well compensate d left vocal cord paralysis. There is minimal glottic gap. I do not recommend a vocal cord injection as I feel his voice is strong already. I discussed the option of voice therapy which he was interested in. I also briefly discussed thyroplast y surgery and that I could refer him to [place] for this. We deferred this for now. He believes his paralysis happened about a year ago. At our follow-up visit I will consider this referral if he is still struggling with his voice. Chronic hoarseness [address] 105 R49.0 [id number] see above Health Concerns Section Related Observation LastModified by Organization Detai ls LastModified Time None Recorded Concern Status LastModified by Organization Details LastModified Time None Recorded Payers Encounter Date Sequence Insurance Name Policy Number Policy Hou Covered Member ID Hou Member ID Guarantor Name 01/20/2025 1 [employer] (MEDICARE REPLACEMENT /ADVANTAGE - PPO) [id number] A Eugenia Cheung [id number] Eugenia Cheung Notes Date Note Type Note Provider Name and Address Organization Details Recorded Time 01/20/2025 text/html ROS as noted in the HPI He has a history of left vocal cord paralysis. He was referred by Dr. Reno for consideration of injection laryngoplasty. CT of the neck and chest did not show any obvious pathology causing the vocal cord paralysis which is likely idiopathic. EUGENIA DAUGHERTY MD [address] [place] [address], [address], [facility] - [facility] 01/20/2025 16:07:26
--- OUTSIDE RECORDS SUMMARY | 2025-02-26 15:25 | XMS_ITS | Patient Health Record ---
Author Organization [facility] Address [address] [address] Care Team Providers Care Academic Affairs Specialist Name Role Phone DavidGilda Noemí Primary Care Provider UnavailBERNICE Greenwood Unavailable [phone] Allergies No Known Allergies Reason For Referral [...] Problem Acquired hammer toe of right foot (2054041151299 105) Hammer toe of right foot (M20.41) Active confirmed Plan Of Treatment Pending Test Test Name Order Date X ray : Foot, left 3v 12/31/2023 X ray : Foot, right 3v 12/31/2023 Next Appt Details Provider Name:BERNICE MACARIO, 02/27/2025 09:45:00 AM, [address] [facility] [address], [place], [address], Insurance Providers Payer Name Payer Address Payer Phone Subscriber Number Group Number Insured Name Patient Relationship to Insured Coverage Start Date Coverage End Date Aet[employer] Medicare [address] AYAD DUARTE [phone] [id number] Jon Mcleod Self - patient is the insured Medical (General) History Medical History History ICD Code mild lymphocytosis fatigue low back strain bipolar disorder scrotal pain hernia bradycardia osteopenia thrombocytopenia + COVID 12/2023 COVID vaccinated X 3 (swabr)
== END 2025-02-26 12:37 | disposition home or self-care (01) ==
LOC: HO.US 12:36
PROVIDERS: PCP Internal Medicine; Visit Provider Internal Medicine
DX: R22.1 Localized swelling, mass and lump, neck (principal)
CPT/HCPCS: 76536

== ENCOUNTER → 2025-02-26 12:38 | Outpatient (BNV) | payer OTHER, SELFPAY | PROVIDERS: PCP Internal Medicine; Visit Provider Radiology Diagnostic Radiology | DX: R22.1 Localized swelling, mass and lump, neck (principal) | CPT/HCPCS: 76536 ==

== ENCOUNTER 2025-04-14 13:10 | Outpatient (AMB) | payer OTHER, SELFPAY ==
--- OUTSIDE RECORDS SUMMARY | 2023-11-28 04:45 | XMS_ITS ---
Author Organization [facility] Address [address] [address] Care Team Providers Care Environmental Engineering Intern Name Role Phone Noemí Lee Primary Care Provider UnavailBERNICE Greenwood Unavailable [phone] Allergies No Known Allergies REASON FOR VISIT orthotics Medications Medication SIG (Take, Route, Frequency, Duration) Notes Start Date End Date Status ZyPREXA Active Wellbutrin Active Encounters Encounter Location Date Provider Diagnosis [facility] [address] [address] 11/28/2023 BERNICE DUMONT Plan Of Treatment Next Appt Details Provider Name:BERNICE DUMONT, 03/05/2026 09:15:00 AM, [address] [address], [place], [address], Progress Notes * KAT JonDOB:1954 (70 yo M)Acc No.[id number]:11/28/2023 Consult note Patient: Jon JORGE Provider: Briana Dumont DPM :1955 A ge:68 Y S ex:Male Date:11/28/2023 Phone: Address:[address], [phone] Pcp:Noemí Lee Subjective: * Chief Complaints: * 1 . Orthotics. * Medical History: M ild lymphocytosis, Fatigue, Low back strain, Bipolar disorder, Scrotal pain, Hernia, Bradycardia, Osteopenia, Thrombocytopenia. * Social History: T obacco: former smoker Alcohol: never. * Medications: T aking ZyPREXA , Taking Wellbutrin * Allergies: N .K.D.A. Objective: * Vitals: Therapeutic Interventions: Assessment: Plan: * Treatment: * Billing Information: * Visit Code: * Procedure Codes: * Electronic signature of KIMO DUMONT D.P.M on 04/14/2025 at 02:18 PM EST Sign off status: Pending * Provider: Briana Dumont DPM Date: 0 11/28/2023 Generated for Sam macias/Jesús/Poncho on: 06/15/2024 02:18 PM EST
--- OUTSIDE RECORDS SUMMARY | 2025-02-25 03:00 | XMS_ITS ---
Author Organization [facility] Address [address] [facility] [address] [place] [address] Care Team Providers Care Dwarf Tree Grower Name Role Phone Noemí Lee Primary Care Provider UnavailBERNICE Greenwood Unavailable [phone] REASON FOR VISIT annual Encounters Encounter Location Date Provider Diagnosis [facility] [address] [facility] [address] [place] [address] 02/25/2025 BERNICE DUMONT Plan Of Treatment Next Appt Details Provider Name:BERNICE DUMONT, 03/05/2026 09:15:00 AM, [address] [facility] [address], [place], [address], Progress Notes * KATJonDOB:1954 (70 yo M)Acc No.[id number]:02/25/2025 Progress Note Patient: Jon JORGE Provider: Briana Dumont DPM :1955 A ge:70 Y S ex:Male Date:02/25/2025 Phone: Address:[address], [phone] Pcp:Noemí Lee Subjective: * Chief Complaints: * 1 . Annual. * Medical History: Objective: * Vitals: Assessment: Plan: * Treatment: * Billing Information: * Visit Code: * Procedure Codes: * Electronic signature of KIMO DUMONT D.P.M on 04/14/2025 at 02:18 PM EST Sign off status: Pending * Provider: Briana Dumont DPM Date: 04/27/2024 Generated for Sam macias/Jesús/Poncho on: 1 06/15/2024 02:18 PM EST
--- NOTE | 2025-04-14 13:27 | A.OFFVIS_ITS ---
Vital Signs 3 04/14/25 13:39 Height 5 ft 10 in Weight 185 lb BMI 26.5 BP 133/86 Blood Pressure Location Lt brachial Position Sitting Pulse 74 Intake Visit Reasons: sebaceaous cyst Intake Note: Patient is seen in office for evaluation of a sebaceous cyst. Pt c/o:back of neck, onset couple yrs, denies any increase, infection, discoloration, discharge or other concerns Manager Access Required: No Accompanied by: Self / Same As Patient Allergies No Known Allergies Allergy (Verified 04/14/25 13:36) Medication List - Last Reconciled 04/14/25 by Christopher Olivia MD B-complex with vitamin C 1 cap PO DAILY biotin 5,000 mcg PO DAILY bupropion HCl XL 150 mg PO DAILY [calcium 600 and vitamin d3 ,] calcium carb,lactat-vitamin D3 200 mg-6.25 mcg (250 unit) tabs PO cetirizine 10 mg PO DAILY PRN cholecalciferol (vitamin D3) 25 mcg PO DAILY divalproex ER 500 mg PO TID [eye promise restore PO] ibuprofen 200 mg PO Q6H PRN multivitamin 1 tab PO DAILY olanzapine 5 mg PO BEDTIME HPI Comments Details: 70-year-old male patient presenting with a soft tissue mass located in the posterior left neck which has been present for many years and has gradually increased in size. He denies any pain, redness or discharge from the site. He recently underwent an ultrasound which shows a possible cystic collection measuring 5 x 5 x 4 mm. He denies any previous history of trauma or surgery in this location. He is requesting removal of this enlarging lump. [facility] Medical History Lumbar spondylosis Bipolar depression Osteopenia Personal history of nicotine dependence Hernia Bradycardia Surgical History History of left mastoidectomy History of right inguinal hernia repair H/O endoscopy Social History Household Members: None Housing: Apartment Alcohol intake: current Patient Tobacco Use Status: Former Tobacco user (quit in 2023) Tobacco use type: Cigar (Occasionally about 2 a day. ) Years Smoked: (onset 14yo, 1/2ppd x 54yrs, 25pyh, quit 10/2023) e-Cigarette/Vaping Use: Never Used Second Hand Smoke Exposure: No service: No Current occupational status: retired Cognitive needs: No Hearing needs: No Vision needs: No Review of Systems Const All systems reviewed & are unremarkable except as noted in HPI and below Physical Exam Vital Signs: Last Vital Signs Pulse 74 04/14/25 13:39 BP 133/86 04/14/25 13:39 BMI result Body Mass Index 26.5 Const General: no acute distress Nutritional Appearance: well nourished Orientation/consciousness: patient oriented x3 Limitations: no limitations HEENT Head: Yes normocephalic and Yes atraumatic Neck Other: Soft tissue mass measuring approximately 4 cm in the posterior left neck below his hairline as noted below. This has soft and mobile suggestive of a lipoma. No definite abscess or fluid collection is identified. Neck images: 2 1. 4 cm soft tissue mass left posterior neck Resp Effort & Inspection: normal respiratory effort, no audible wheezes, no cough and no respiratory distress GI Inspection: Yes normal to inspection Skin Other: Warm, dry, no rash Neuro General: patient oriented x3 Extrem Other: No peripheral edema Assessment & Plan Assessment & Plan (1) Sebaceous cyst: Code(s): L72.3 - Sebaceous cyst Category: Medical Plan 70-year-old male patient presenting for evaluation of a sebaceous cyst of the posterior left neck. Ultrasound reveals a 5 mm cyst suggestive of a sebaceous cyst however on examination there is a soft mass measuring at least 4 cm in diameter in the posterior left neck with the consistency of a lipoma. We discussed excision of this soft tissue mass either under local anesthesia or with general anesthesia. After review of the procedure, risks, and alternatives, he wishes to proceed with an excision under local anesthesia as an office based procedure and gives his consent for the surgery. Coding Level of Care Code New Pt Level 4 (29271) Diagnoses Sebaceous cyst L72.3
[2025-04-14 13:39] VITALS: BP 133/86; PULSE 74; BMI 26.5
--- OUTSIDE RECORDS SUMMARY | 2025-04-14 14:18 | XMS_ITS | Patient Health Record ---
Author Organization [facility] Address [address] [address] Care Team Providers Care Mica Inspector Name Role Phone DavidNoemí Vo Primary Care Provider UnavailBERNICE Greenwood Unavailable [phone] Allergies No Known Allergies Reason For Referral No Information Medications Medication SIG (Take, Route, Frequency, Duration) Notes Start Date End Date Status ZyPREXA Not-Taking Depakote 125 MG 1 tablet Orally Twice a day Active OLANZapine 10 MG 1 tablet Orally Once a day 2023 Active Adderall 10 MG 1 tablet Orally Twice a day 024 Not-Taking Wellbutrin XL 150 MG 1 tablet in the mor laura Orally Once a day Active Problems Problem Type SNOMED Code ICD Code Onset Dates Problem Status W/U Status Risk Notes Problem Acquired hammer toe of right foot (4880131233268 105) Hammer toe of right foot (M20.41) Active confirmed Vital Signs Heart Rate 54 /min 02/27/2025 Temperature 96.2 degrees Fahrenheit 02/27/2025 Respiratory Rate 16 /min 02/27/2025 Height 5ft 10in in 02/27/2025 Weight 181.2 lbs 02/27/2025 BMI 26 kg/m2 02/27/2025 Encounters Encounter Location Date Provider Diagnosis [facility] [address] [facility] [address] [place] [address] 02/27/2025 BERNICE MACARIO PTTD (posterior tibial tendon dysfunction) M76.829 ; Hammer toe of right foot M20.41 ; Metatarsalgia, right foot M77.41 ; Metatarsalgia, left foot M77.42 ; Subungual hematoma of toenail of left foot, sequela S90.222S ; Pain in left toe(s) M79.675 and Pain in right toe(s) M79.674 Assessments Encounter Date Diagnosis (ICD Code) Assessment Notes Treatment Notes Treatment Clinical Notes Section Notes 02/27/2025 PTTD (posterior tibial tendon dysfunction) (ICD-10 - M76.829) 02/27/2025 Hammer toe of right foot (ICD-10 - [...] weight-bearing environment. The current orthotics are appropriate. I would like to add a crest pad under the 4th toe of the right foot as his toe is curling more on weight-bearing. RX for modification dispensed to the patient in the office today. We discussed most custom orthotics needs adjustments every 2-5 years. I would like to see him back on a yearly basis to make sure the current orthotics are still appropriate. He is in agreement with this plan. 02/27/2025 Metatarsalgia , right foot (ICD-10 - M77.41) 02/27/2025 Metatarsalgia , left foot (ICD-10 - M77.42) 02/27/2025 Subungual hematoma of toenail of left foot, sequela (ICD-10 - S90.222S) We discussed the bruising under the nail beds. I explained that the nails would likely fall off when the new nails start to grow out. We discussed a normal nail typically takes 9-12 months to grow out completely. 02/27/2025 Pain in left toe(s) (ICD-10 - M79.675) 02/27/2025 Pain in right toe(s) (ICD-10 - M79.674) Plan Of Treatment Pending Test Test Name Order Date X ray : Foot, left 3v 12/31/2023 X ray : Foot, right 3v 12/31/2023 Next Appt Details Provider Name:BERNICE MACARIO, 03/05/2026 09:15:00 AM, [address], [address], Insurance Providers Payer Name Payer Address Payer Phone Subscriber Number Group Number Insured Name Patient Relationship to Insured Coverage Start Date Coverage End Date Aetna Medicare [address] [place] [address] [phone] [id number] Jon Mcleod Self - patient is the insured Medical (General) History Medical History History ICD Code mild lymphocytosis fatigue low back strain bipolar disorder scrotal pain hernia bradycardia osteopenia thrombocytopenia + COVID 12/2023 COVID vaccinated X 3 (IO Turbine)
--- OUTSIDE RECORDS SUMMARY | 2025-04-14 14:18 | XMS_ITS | Patient Health Record ---
Author Organization [facility] Address [address] [place] [address] Care Team Providers Care Auto Body Mechanic Name Role Phone Ronald Hernandez Primary Care Provider Jesus Bradshaw Unavailable [phone] Reason For Referral No Information Medications Medication SIG (Take, Route, Frequency, Duration) Notes Start Date End Date Status Advil Active Tylenol Active LaMICtal Active Truxton Active Suprep Bowel Prep Kit 17.5-3.13-1.6 GM/177ML Solution 17.5-3.13-1.6 GM/177ML Orally per physician prep sheet; Duration: 2 days 08/30/2020 Active Social History Tobacco Use: Social History Observation Description Date Details (start date - stop date) Current Smoker NA - NA Social History Tobacco Use: Social Info Question Answer Notes Tobacco Use/Smoking Smoking Status current smoker Tobacco use other than smoking: Are you an other tobac co user? Yes Cigars Section Notes: Intermittent cigar use. 7-10 drinks per week. Problems Problem Type SNOMED Code ICD Code Onset Dates Problem Status W/U Status Risk Notes Problem History of polyp of colon (situation) (283066933) Personal history of colonic polyps (Z86.010) Active confirmed Patient has history of colon polyps. Last colonoscopy was around 2012, he is ago. Some polyps were seen and told to repeat in 5 years. We'll plan on doing repeat colonoscopy now. Problem History of polyp of colon (situation) (261556218) Personal history of colon polyps (Z86.010) Active confirmed Plan Of Treatment No Information Insurance Providers Payer Name Payer Address Payer Phone Subscriber Number Group Number Insured Name Patient Relationship to Insured Coverage Start Date Coverage End Date [facility] [address] [place] [phone] [id number] EUGENIA STUBBS Self - patient is the insured Medical (General) History Medical History History ICD Code Bipolar disorder Surgical History Surgery Date(Month/Year) Mastoid surgery with revision
--- OUTSIDE RECORDS SUMMARY | 2025-04-14 14:19 | XMS_ITS | Continuity of Care Document ---
Author Organization [place] - [facility], [facility] Address [address] [place] [address] Care Team Providers Care Complaint Manager Name Role Phone JHONY TRAN Primary Care Provider Assessment No assessment recorded. Plan of Treatment Reminders Order Date Submit Date Provider Last Modified By Organization Details Last Modified Time Details Appointments Test Results 2025 03:30P M EUGENIA Chan MD Not available Not available Not available Lab None recorded. Referral speech language pathologi st referral 2024 025 [facility], [address] [facility], [place], [address], 01/21/2025 15:19:57 Procedures None recorded. Surgeries None recorded. Imaging None recorded. Medication Orders None recorded. Patient TargetsNo targets recorded. Patient InstructionsNo instructions recorded. Reason for Referral Speech Language Pathologist Referral for Vocal cord paralysis Referring Physician: Eugenia Daugherty, Otolaryngology, Encounter Date: 01/20/2025 Problems Name Problem SNOMED Code Status Onset Date Resolution Date Notes Provider Name and Address Organization Details Recorded Time Chronic rhinitis 52584026 Active 2023 LEELA COCHRAN MD [address] [place] [address], [address] [facility] [place] - [facility] 13:54:25 Paralysis of left vocal cord 095538644 Active 2023 LEELA COCHRAN MD [address] [place], [address], [place] [facility] [place] 13:54:38 Localized enlarged lymph nodes 671657797 Active 2023 LEELA COCHRAN MD [address] [address], [place], [address], [place] [facility] [place] 13:55:01 Vocal cord paralysis 041584888 Active 2024 EUGENIA Chan MD [address] [address], [place], [address], [place] [facility] 15:47:28 Chronic hoarseness 1933278930445 Active 2024 EUGENIA Chan MD [address] [address], [place], [address], [place] [facility] [place] 16:06:37 Problem Notes None recorded. Procedures Surgical History Date Name Laterality Status Provider Name and Address Organization Details Recorded Time 01/21/20 25 FFL_RE completed EUGENIA DAUGHERTY MD [address], [address], [facility] - [facility] 01/20/2025 16:05:21 11/07/19 25 FOL_LEFTVFP_JMS completed LEELA RENO MD [address] [place] [address], [address], [facility] - [facility] 11/06/2024 11:52:34 02/19/20 24 FOL_LEFTVFP_JMS completed LEELA RENO MD [address] [place] [address],[address], [address], [facility] - [facility] [place] 02/19/2024 13:54:20 left mastoidectomy completed LEELA RENO MD [address] [place] [address],[address], [address], [facility] - [facility] [place] 02/19/2024 13:29:23 Imaging Results None recorded. Procedure [...] Updated DateTime 01/20/2025 177.8 cm 25.1 kg/m2 77198.66 g Jose Meyer [place] - [facility] 01/20/2025 15:52:40 Social History Question Answer Notes LastModified by Organizat ion Details LastModified Time Tobacco Smoking Status Former Smoker LEELA RENO MD [address] [place] [address], [place], [address], [place] [facility] 02/19/2024 13:32:06 How Many Years Have You Consumed Alcohol? 45 Information not available 01/20/2025 What Type Of Hvac Mechanic Do You Use? None Information not available [...] Emphysema N Migraines N Thyroid Problems N COPD N Depression N Developmental Delay N Glaucoma N Nasal or Sinus Problems N Anemia N Immune System Disorder N Anesthesia Complications N Heart Attack ([place]) N Other Skin Condition N Diabetes N Rhinitis N Bleeding Disorder N Food Allergy N Hearing Loss N Arthritis N Hyperlipidemia N Cancer N Stroke N Dementia N Nasal polyps N Asthma N Sleep Disorder N High Cholesterol N GERD/Reflux N Liver Disease N Headaches N Fibromyalgia N Hypertension N Speech Delay N Kidney Disease N Past Encounters Encounter ID Performer Location Encounter Start Date Encounter Closed Date Diagnosis/Indication Diagnosis SNOMED-CT Code Diagnosis ICD10 Code Diagnosis IMO Codes Diagnosis Note [id number] EUGENIA DAUGHERTY MD [facility] of [address] [address] 01/20/2025 15:43:55 01/20/2025 16:07:17 Vocal cord paralysis 925254757 J38.01 [id number] He has a well compensate d left vocal cord paralysis. There is minimal glottic gap. I do not recommend a vocal cord injection as I feel his voice is strong already. I discussed the option of voice therapy which he was interested in. I also briefly discussed thyroplast y surgery and that I could refer him to [place] for this. We deferred this for now. He believes his paralysis happened about a year ago. At our follow-up visit I will consider this referral if he is still struggling with his voice. Chronic hoarseness 11644 [address] 105 R49.0 [id number] see above Health Concerns Section Related Observation LastModified by Organization Detai ls LastModified Time None Recorded Concern Status LastModified by Organization Details LastModified Time None Recorded Payers Encounter Date Sequence Insurance Name Policy Number Policy Hou Covered Member ID Hou Member ID Guarantor Name 01/20/2025 1 [employer] (MEDICARE REPLACEMENT /ADVANTAGE - PPO) [id number] A Eugenia Cheung [id number] Eugenia Cheung Notes Date Note Type Note [...] which is likely idiopathic. EUGENIA DAUGHERTY MD [address] [place] [address], [address], [facility] - [facility] 01/20/2025 16:07:26
--- OUTSIDE RECORDS SUMMARY | 2025-04-14 14:19 | XMS_ITS | Data Portability ---
Author Organization [place] - [facility], Allergy Address [address] [facility] [address] [place] [address] Care Team Providers Care Molding Machine Tender Name Role Phone JHONY TRAN Primary Care Provider Assessment Encounter Date Assessment [...] Go To The Location Of Their Choice, [facility] 02/20/2024 06:23:40 Referral speech [address] referral 2024 025 [facility] Rose, [address] [facility], [place], [address], 01/21/2025 15:19:57 Procedures None recorded. Surgeries None recorded. Imaging CT, chest, w/ contrast - with and without contrast. ..;labs at [facility] 2023 024 ARISTE[facility] [place], [address] [facility], [facility], [place], [address], 03/04/2024 11:34:52 CT, neck, soft tissue, w/ contrast [facility]24 [email or web address] [facility] [place], [address], [address], [place], [address], 02/27/2024 13:28:35 Medication Orders ipratropi um bromide 21 mcg (0.03 %) nasal spray 2023 025 RUMSEY [id number], [address] [place], [place], [id number], 11/06/2024 11:12:05 Patient TargetsNo targets recorded. Patient Instructions Encounter Date Encounter Id Patient Instructions Last Modified By Organization Details Last Modified Time 11/06/2024 [id number] Please note: Parts of this encounter note [...] 24 mg/dL 8-27 normal Not Available [facility] ([facility]) [address] [facility], [place], [address], 02/20/2024 06:23:40 02/19/2002/20/2024 BUN+C REAT creatinine 1.16 mg/dL 0.76-1 .27 normal Not Available [facility] ([facility]) [address] [facility], [place], [address], 02/20/2024 06:23:40 02/19/20 24 02/20/2024 BUN+C REAT eGFR 69 mL/mi n/1.7 3 >59 normal Not Available [facility] ([facility]) [address] [facility], [place], [address], 02/20/2024 06:23:40 02/19/20 24 02/20/2024 BUN+C REAT BUN/creatini ne ratio 21 10-24 normal Not Available [facility] ([facility]) [address] [place], [address], 02/20/2024 06:23:40 03/04/20 24 03/04/2024 CT, chest , w/ contr ast No observ ation record ed. [facility] [address], [address], 03/08/2024 08:35:17 03/04/20 24 03/04/2024 CT, neck, soft tissu e, w/ contr ast No observ ation record ed. ARISTEO [facility] [place] [address] [facility] [address], [place], [address], 03/08/2024 08:35:17 03/06/20 24 03/04/2024 CT, neck, soft tissu e, w/ contr ast No observ ation record ed. ARISTEO [facility] [place] [address] [facility] [address], [place], [address], 03/08/2024 08:35:18 03/06/20 24 03/04/2024 CT, chest , w/ contr ast No observ ation record ed. ARISTEO [facility] [place] [address] [facility] [address], [place], [address], 03/08/2024 08:35:18 Result Notes None recorded. Problems Name Problem SNOMED Code Status Onset Date Resolution Date Notes Provider Name and Address Organization Details Recorded Time Chronic rhinitis 14716568 Active 2023 LEELA COCRHAN MD [address] [place] [address], [place], [address], [facility] 4 13:54:25 Paralysis of left vocal cord 822430065 Active 2023 LEELA COCHRAN MD [address] [place] [address], [place], [address], [facility] - [facility] 4 13:54:38 Localized enlarged lymph nodes 748724631 Active 2023 LEELA COCHRAN MD [address] [place] [address], [place], [address], [facility] - [facility] 4 13:55:01 Vocal cord paralysis 615986865 Active 2024 EUGENIA Chan MD [address] [place] [address], [place], [address], [facility] - [facility] 5 15:47:28 Chronic hoarseness 3057007932147 Active 2024 EUGENIA Chan MD [address] [place] [address], [place], [address], [place] - [facility] 16:06:37 Problem Notes None recorded. Procedures Surgical History Date Name Laterality Status Provider Name and Address Organization Details Recorded Time 01/21/20 25 FFL_RE completed EUGENIA DAUGHERTY MD [address] [facility],[address], [address], [place] - [facility] 01/20/2025 16:05:21 11/07/19 25 FOL_LEFTVFP_JMS completed LEELA RENO MD [address] [facility],[address], [address], [place] - [facility] 11/06/2024 11:52:34 02/19/20 24 FOL_LEFTVFP_JMS completed LEELA RENO MD [address] [facility],[address], [address], [facility] - [facility] 02/19/2024 13:54:20 left mastoidectomy completed LEELA RENO MD [address] [facility],[address], [address], [facility] - [facility] 02/19/2024 13:29:23 Imaging Results None recorded. Procedure [...] Updated DateTime 11/06/2024 177.8 cm 25.1 kg/m2 51771.66 g Rufina Gutiérrez [place] - [facility] 11/06/2024 11:11:19 Date Recorded Body height Body mass index (BMI) Body weight Provider Name and Address Organization Details Last Updated DateTime 01/20/2025 177.8 cm 25.1 kg/m2 68827.66 g Jose Meyer [place] - [facility] 01/20/2025 15:52:40 Date Recorded Body height Body mass index (BMI) Body weight Provider Name and Address Organization Details Last Updated DateTime 02/19/2024 177.8 cm 25.1 kg/m2 26897.66 g Glenis Benz [place] - [facility] 02/19/2024 13:16:07 Social History Question Answer Notes LastModified by Organizat ion Details LastModified Time Tobacco Smoking Status Former Smoker LEELA RENO MD [address] [place] [address], [address], [facility] 02/19/2024 13:32:06 How Many Years Have You Consumed Alcohol? 45 Information not available 01/20/2025 What Type Of Pipelines Manager Do You Use? None Information not available [...] Disorder N Anesthesia Complications N Heart Attack ([place]) N Other Skin Condition N Diabetes N [...] ICD10 Code Diagnosis IMO Codes Diagnosis Note [id number] LEELA RAMOS MD [facility] [address] [address] 02/19/2024 12:52:19 02/19/2024 14:06:32 Chronic rhinitis 29147072 J31.0 Paralysis of left vocal cord 742080187 J38.01 Pre-surgery testing 1104 63659 Z01.812 [id number] LEELA RAMOS MD [facility] [address] [address] 11/06/2024 11:06:38 11/06/2024 11:53:27 Paralysis of left vocal cord 138759535 J38.01 Chronic rhinitis 7503162 6 J31.0 [id number] EUGENIA DAUGHERTY MD [facility] [address] [address] 01/20/2025 15:43:55 01/20/2025 16:07:17 Vocal cord paralysis 022497887 J38.01 [id number] He has a well compensate d left vocal cord paralysis. There is minimal glottic gap. I do not recommend a vocal cord injection as I feel his voice is strong already. I discussed the option of voice therapy which he was interested in. I also briefly discussed thyroplast y surgery and that I could refer him to [place] for this. We deferred this for now. He believes his paralysis happened about a year ago. At our follow-up visit I will consider this referral if he is still struggling with his voice. Chronic hoarseness 23017 67162 105 R49.0 [id number] see above Health Concerns Section Related Observation LastModified by Organization Detai ls LastModified Time None Recorded Concern Status LastModified by Organization Details LastModified Time None Recorded Advance Directives Directive None Recorded Payers Insurance Date Sequence Insurance Name Policy Number Policy Hou Covered Member ID Hou Member ID Guarantor Name 02/19/2024 2 MEDICARE B-[place]: [employer] Eugenia Abebefeli [id number] Eugenia Bowman Jonatan 01/21/2025 1 [employer] (MEDICARE REPLACEMENT/ ADVANTAGE - PPO) [id number] Eugenia Bowman Jonatan [id number] Eugenia Bowman Jonatan Notes Date Note Type [...] This has been present for several months. [place] sx worse with INS. Feels cetirizine can be helpful. Some time he has difficulty with food going down the wrong wayNo glaucomaSx fluctuateCOVID 19 x 2 occasions last episode 2 months ago. These sx began before COVID. He is on adderal for brain fog which is helping LEELA RENO MD [address] [place] [address], [phone], [facility] 02/19/2024 14:00:43 11/06/2024 text/html The patient [...] is having no concerns LEELA RENO MD [address] [place] [address],[address], [address], [facility] - [facility] 11/06/2024 11:54:06 01/20/2025 text/html ROS as noted in the HPI He has a history of left vocal cord paralysis. He was referred by Dr. Reno for consideration of injection laryngoplasty. CT of the neck and chest did not show any obvious pathology causing the vocal cord paralysis which is likely idiopathic. EUGENIA DAUGHERTY MD [address] [place] [address], [phone], [facility] - [facility] 01/20/2025 16:07:26
== END 2025-04-14 13:45 | disposition home or self-care (01) ==
LOC: HO.HGS 13:10
PROVIDERS: PCP Internal Medicine; Visit Provider Surgery
DX: L72.3 Sebaceous cyst (principal)
CPT/HCPCS: 99204